=== PATIENT | male | born 1995 | race Two or more races ===

== ENCOUNTER 2022-06-22 09:31 | Inpatient (IN) | payer OTHER, SELFPAY ==
--- NOTE | ~2022-06-22 | CT_ITS ---
EXAMINATION: CT ABDOMEN AND PELVIS WITH CONTRAST CLINICAL INFORMATION: Abdominal pain. COMPARISON: None TECHNIQUE: Multidetector volumetric images were obtained from the superior aspect of the liver through the pubic symphysis following administration 85 mL of Omnipaque 350 intravenous contrast. Sagittal and coronal reformatted images were obtained on the technologist's workstation. Oral contrast: No This CT examination was performed using dose optimization techniques as appropriate, variously including the following: *Automated exposure control *Adjustment of mA and/or kV according to patient size (this includes techniques or standardized protocols for targeted exams where dose is matched to indication/reason for exam; i.e. extremities or head) *Use of iterative reconstruction technique DLP: 935 mGy-cm FINDINGS: LUNG BASES: The visualized lung bases are unremarkable. LIVER, GALLBLADDER, AND BILIARY TREE: Unremarkable. PANCREAS: Unremarkable. SPLEEN: Unremarkable. ADRENAL GLANDS: Unremarkable. KIDNEYS AND URETERS: The kidneys are normal in size, shape, and attenuation. No hydronephrosis, hydroureter, or calculi seen. No perinephric stranding. BLADDER: Unremarkable. GASTROINTESTINAL TRACT: Stomach, small bowel and appendix are unremarkable. The colon shows mild diffuse mural thickening with incomplete distention extending to the rectum. Haustration is preserved. Mildly enlarged pericolonic lymph nodes are throughout the length of the colon. Mild prominence of the vasa recta is seen as well. No focal mass or significant pericolonic infiltrative changes. No focal fluid collection or evidence for perforation. ABDOMINAL WALL: No significant hernia is appreciated. LYMPH NODES: See gastrointestinal tract comments above. VASCULAR: Unremarkable. PELVIC VISCERA: Unremarkable. OSSEOUS STRUCTURES: Unremarkable. CT/CT abdomen pelvis w IV con IMPRESSION: 1. Mild diffuse mural thickening in the in the colon distally to the rectum as detailed above. A component of mural thickening may be secondary to incomplete distention however given the pericolonic lymph nodes and prominence of the vasa recta suggestive of colitis of indeterminate age. Findings suggest more chronic/subacute infectious/inflammatory colitis, but clinical correlation is recommended.
[2022-06-22 11:10] VITALS: BP 132/80; PULSE 90; RESP 20; TEMP 36.6; O2SAT 100; BMI 41.3
--- NOTE | 2022-06-22 11:14 | ED_ITS ---
HPI - General Adult General Chief complaint: Weakness <Zarina Houser MD - Last Filed: 06/22/22 11:21> Stated complaint: Pain Stiffness in Joints <Zarina Houser MD - Last Filed: 06/22/22 11:21> Time Seen by Provider: 06/22/22 12:46 <Zarina Houser MD - Last Filed: 06/22/22 11:21> Source: patient and family (Father) <Param Wilburn MD - Last Filed: 06/22/22 17:26> Mode of arrival: ambulatory <Param Wilburn MD - Last Filed: 06/22/22 17:26> Limitations: no limitations <Param Wilburn MD - Last Filed: 06/22/22 17:26> History of Present Illness HPI narrative: 19-year-old male who presents emergency department for evaluation of abdominal pain, bloody stools and weight loss. The patient states that he has been sick for approximately 3 months. He states he has had a constant, sharp pain in his abdomen, he points to his supraumbilical area and diffusely t hroughout his abdomen when asked to localize the pain. He describes the pain as a constant, sharp pain which is 8/10 at its worst. Patient states that he has had bloody diarrheal stool for 3 months, 8 episodes per day. The patient has had nausea and vomiting daily. He states that he is not able to eat food secondary to his pain and also causes diarrhea. He believes that he has had a 20 lb weight loss over the last 3 months. Patient states that he has been having joint pain mainly in his knees and and elbow for the last 1-2 weeks. He states that he has also noticed a rash on his hands. He states that he is feeling very weak, lightheaded and dizziness having difficulty walking secondary to his weakness. Patient states that he did go to [facility] approximately 2 weeks ago he complai clair of back and did not get a workup for his other symptoms. The patient has not been on antibiotics recently. He has not traveled outside of the country. <Param Wilburn MD - Last Filed: 06/22/22 17:26> Related Data Allergies/adverse reactions: Allergies Allergy/AdvReac Type Severity Reaction Status Date / Time No Known Allergies Allergy Unverified 04/02/20 17:05 <Zarina Houser MD - Last Filed: 06/22/22 11:21> Review of Systems Review of Systems: Yes all other systems are reviewed and are negative <Param Wilburn MD - Last Filed: 06/22/22 17:26> [facility]LY [facility] Past Medical History FOR[facility] Narrative: Past medical history: None. Past surgical history: None. Social history: He states that he is a former smoker. He states he stop smoking 6 months prior. He states he smoked for 5 years. He denies alcohol use. Denies drug use. <Param Wilburn MD - Last Filed: 06/22/22 17:26> Social History Social History: Social History Alcohol intake: never Smoked in Last 30 Days: No Advance Directives: No <Zarina Houser MD - Last Filed: 06/22/22 11:21> Physical Exam ED Vital Signs: Vital Signs - 24 hr 06/22/22 11:10 06/22/22 14:45 06/22/22 15:58 Temperature 98 F 98.1 F Pulse Rate 90 77 80 Respiratory Rate 20 12 18 Blood Pressure 132/80 99/54 L 132/77 Pulse Oximetry 100 98 98 Oxygen Delivery Method Room Air Room Air Room Air BMI result Body Mass Index 41.3 <Zarina Houser MD - Last Filed: 06/22/22 11:21> Vital Signs - 24 hr 06/22/22 11:10 06/22/22 14:45 06/22/22 15:58 Temperature 98 F 98.1 F Pulse Rate 90 77 80 Respiratory Rate 20 12 18 Blood Pressure 132/80 99/54 L 132/77 Pulse Oximetry 100 98 98 Oxygen Delivery Method Room Air Room Air Room Air BMI result Body Mass Index 41.3 <Param Wilburn MD - Last Filed: 06/22/22 17:26> Const General: cooperative and no acute distress <Param Wilburn MD - Last Filed: 06/22/22 17:26> Orientation/consciousness: oriented to person and oriented to place <Param Wilburn MD - Last Filed: 06/22/22 17:26> Limitations: no limitations <Param Wilburn MD - Last Filed: 06/22/22 17:26> HENMT Head: Yes normal to inspection, Yes normocephalic and Yes atraumatic <Param Wilburn MD - Last Filed: 06/22/22 17:26> Ears: external ears normal <MD Sheridan Rodarte Last Filed: 06/22/22 17:26> General nose exam: Normal external nose present <MD Sheridan Rodarte Last Filed: 06/22/22 17:26> Face and sinus: Yes normal facial exam <MD Sheridan Rodarte Last Filed: 06/22/22 17:26> Mouth: Normal oral and palatal mucosa present <MD Sheridan Rodarte Last Filed: 06/22/22 17:26> Throat: Yes posterior oropharynx normal <MD Sheridan Rodarte Last Filed: 06/22/22 17:26> Eyes General: appearance normal, both eyes and all related structures <MD Sheridan Rodarte Last Filed: 06/22/22 17:26> Pupils: Equal, round and reactive pupils present <MD Sheridan Rodarte Last Filed: 06/22/22 17:26> Neck Neck: Yes normal visual inspection, Yes no lymphadenopathy, Yes trachea midline and Yes supple <MD Sheridan Rodarte Last Filed: 06/22/22 17:26> Chest Chest palpation & inspection: normal inspection of the chest and normal palpation of entire chest wall <MD Sheridan Rodarte Last Filed: 06/22/22 17:26> Resp Effort & Inspection: normal respiratory effort and able to speak in complete sentences <MD Sheridan Rodarte Last Filed: 06/22/22 17:26> Auscultation: clear to auscultation bilaterally <MD Sheridan Rodarte Last Filed: 06/22/22 17:26> Cardio Rate: regular rate <MD Sheridan Rodarte Last Filed: 06/22/22 17:26> Rhythm: regular rhythm <MD Sheridan Rodarte Last Filed: 06/22/22 17:26> Heart sounds: S1 normal heart sound present, S2 normal heart sound present and no murmurs <Param Wilburn MD - Last Filed: 06/22/22 17:26> GI Other: Rectal exam: I was not able to insert my finger into his rectum secondary to the patient's rectal pain and he clenched his muscles and pulled away from the multiple times. <Param Wilburn MD - Last Filed: 06/22/22 17:26> Inspection: Yes normal to inspection <Param Wilburn MD - Last Filed: 06/22/22 17:26> Palpation (GI): Soft to palpation, Tenderness to palpation present (GI) (Diffuse [id number] tenderness) and no guarding <Param Wilburn MD - Last Filed: 06/22/22 17:26> Auscultation: normal bowel sounds <Param Wilburn MD - Last Filed: 06/22/22 17:26> Rectal Exam - Male: Yes other <Param Wilburn MD - Last Filed: 06/22/22 17:26> General: Yes no CVA tenderness <Param Wilburn MD - Last Filed: 06/22/22 17:26> Back/Spine/Pelvis Back: no CVA tenderness <Param Wilburn MD - Last Filed: 06/22/22 17:26> Skin Other: Patient has erythematous rash in patches on his hands, I do not see a rash on the other parts of his body. <Param Wilburn MD - Last Filed: 06/22/22 17:26> Neuro General: oriented to person and oriented to place <Param Wilburn MD - Last Filed: 06/22/22 17:26> Cranial nerves: Yes CN's II-XII intact bilaterally and Yes Equal, round and reactive pupils present <Param Wilburn MD - Last Filed: 06/22/22 17:26> Cognition (Neuro): normal cognition <Param Wilburn MD - Last Filed: 06/22/22 17:26> Motor exam (neuro): 5/5 motor strength present throughout <Param Wilburn MD - Last Filed: 06/22/22 17:26> Extrem Other: Patient does not seem to have any significant swelling or warmth to his joints <Param Wilburn MD - Last Filed: 06/22/22 17:26> Psych Appearance: grossly normal <Param Wilburn MD - Last Filed: 06/22/22 17:26> Speech and movement: Normal speech and movement present <Param Wilburn MD - Last Filed: 06/22/22 17:26> Affect: normal affect <Param Wilburn MD - Last Filed: 06/22/22 17:26> Attitude: cooperative <Param Wilburn MD - Last Filed: 06/22/22 17:26> Thought process: Normal thought process present <Param Wilburn MD - Last Filed: 06/22/22 17:26> Thought content: Normal thought content present <Param Wilburn MD - Last Filed: 06/22/22 17:26> Course Course Course Narrative: Evaluated patient is on advanced Triage patient complaining of having abdominal pain nausea vomiting diarrhea diarrhea consistent with having blood mixed with stool. At times some foam mixed with stool. Diffuse body ache. Worse in the knees. No significant past medical history in the past. On no medications. Abdominal pain mostly over the epigastric area. No travel. No NSAID use. No ETOH use. Patient vaccinated for COVID. Denies having any fever chills. This is a lab draw IV CT scan ordered. The patient put back in the waiting room. <Zarina Houser MD - Last Filed: 06/22/22 11:21> Evaluated patient is on advanced Triage patient complaining of having abdominal pain nausea vomiting diarrhea diarrhea consistent with having blood mixed with stool. At times some foam mixed with stool. Diffuse body ache. Worse in the knees. No significant past medical history in the past. On no medications. Abdominal pain mostly over the epigastric area. No travel. No NSAID use. No ETOH use. Patient vaccinated for COVID. Denies having any fever chills. This is a lab draw IV CT scan ordered. The patient put back in the waiting room. Course: 27-year-old male who presents emergency department for evaluation of diffuse abdominal pain bloody diarrheal stool, nausea and vomiting with a 15-20 lb weight loss over 3 months. Patient also has noticed pain in the joints of his knees and elbows for the last 2 weeks and a rash on his hand x1 week. The patient was feeling lightheaded, dizzy and weak and was having difficulty walking for the past week as well. Vital signs were normal. Abdominal exam revealed diffuse abdominal tenderness. Differential includes was not limited to ulcerative colitis, Crohn's disease, infectious colitis, malignancy. Her laboratory evaluation and CT scan were ordered from triage. 1648: Laboratory evaluation WBC elevated 17,600, 74 neutrophils, 9 lymphocytes, 4.9 eosinophils. Sodium low 133. Urinalysis negative. COVID-19, influenza, RSV negative. ESR elevated 25. Radiology evaluation: CT scan of the abdomen pelvis with IV contrast radiology reading as follows: GASTROINTESTINAL TRACT: Stomach, small bowel and appendix are unremarkable. The colon shows mild diffuse mural thickening with distention extending to the rectum.? Haustration is preserved. Mildly enlarged pericolonic lymph nodes are throughout the length of the colon. Mild prominence of the vasa recta is seen as well. No focal mass or significant pericolonic infiltrative changes. No focal fluid collection or evidence for perforation. Impression 1. Mild diffuse mural thickening in the in the colon distally to the rectum as detailed above. A component of mural thickening may be secondary to incomplete distention however given the pericolonic lymph nodes and prominence of the vasa recta suggestive of colitis of indeterminate age. Findings suggest more chronic/subacute infectious/inflammatory colitis, but clinical correlation is recommended. Dictated By:Mir Paulino MDSigned By:<Electronically signed by Mir Paulino MD in [place]>06/22/[address] scan findings and laboratory findings, I will treat the patient for possible infectious colitis with Levaquin 750 mg IV Flagyl 500 mg IV. I did order C diff and GI panel. Will also obtain open parasites. I will discuss the patient's presentation with the covering hospitalist. <Param Wilburn MD - Last Filed: 06/22/22 17:26> Medications Administered Discontinued Medications Generic Name Dose Route Start Last Admin Trade Name Freq PRN Reason Stop Dose Admin Sodium Chloride 1,000 mls @ 999 mls/hr 06/22/22 11:30 06/22/22 15:34 Ns IV 06/22/22 12:30 Infused .Q1H1M INES Infusion Iohexol 100 ml 06/22/22 13:23 06/22/22 13:24 Iohexol 350 Mg/Ml 100 Ml Infus..Btl IV 06/22/22 13:24 85 ml ONCE ONE Administration <Zarina Houser MD - Last Filed: 06/22/22 11:21> Medications Administered Discontinued Medications Generic Name Dose Route Start Last Admin Trade Name Spenser PRN Reason Stop Dose Admin Sodium Chloride 1,000 mls @ 999 mls/hr 06/22/22 11:30 06/22/22 15:34 Ns IV 06/22/22 12:30 Infused .Q1H1M INES Infusion Iohexol 100 ml 06/22/22 13:23 06/22/22 13:24 Iohexol 350 Mg/Ml 100 Ml Infus..Btl IV 06/22/22 13:24 85 ml ONCE ONE Administration <Param Wilburn MD - Last Filed: 06/22/22 17:26> Critical Care Time Critical Care Time Total Critical Care Time: 30 <Param Wilburn MD - Last Filed: 06/22/22 17:26> Attestation: Critical Care: The patient was critically ill with a high probability of imminent or life threatening deterioration. I spent greater than 30 minutes of discontinuous time evaluating the patient,delivering critical care at the bedside, discussing and evaluating pertinent data with consultants. Critical care time does not include time spent performing separately billable procedures or teaching. Total time spent performing critical care was 30 minutes. <Param Wilburn MD - Last Filed: 06/22/22 17:26> Discharge Plan Discharge Patient Disposition: Admitted As Inpatient <Zarina Houser MD - Last Filed: 06/22/22 11:21>
[2022-06-22 11:56] LABS: Basophils Absolute Auto 0.1 X10*3/uL (0.0-0.2); Basophils Percent Auto 0.3 % (0-2); Eosinophils Absolute Auto 0.9 X10*3/uL (0.0-0.4); Eosinophils Percent Auto 4.9 % (0-4); Hematocrit 37.8 % (42.0-52.0); Hemoglobin 11.7 g/dl (14.0-18.0); Imm Gran Abs Auto 0.06 X10*3/uL (0.00-0.03); Imm Gran Pct Auto 0.3 % (0.0-0.4); Lymphocytes Absolute Auto 1.6 X10*3/uL (1.2-4.9); Lymphocytes Percent Auto 9.3 % (20-40); MANUAL DIFF FLAG SCAN; Mean Corpuscular Hemoglobin 21.1 pg (27.0-33.0); Mean Corpuscular Volume 68.2 fL (80.0-98.0); Mean Platelet Volume 9.7 fL (9.4-12.4); Monocytes Absolute Auto 1.9 X10*3/uL (0.1-1.2); Monocytes Percent Auto 10.7 % (2-11); Neutrophils Absolute Auto 13.1 x10*3/uL (2.0-8.3); Neutrophils Percent Auto 74.5 % (45-73); Platelet Count 514 X10*3/uL (160-400); Red Blood Count 5.54 X10*6/uL (4.60-5.80); Red Cell Distribution Width 16.1 % (11.0-16.0); SCAN SMEAR FLAG 1; White Blood Count 17.6 X10*3/uL (4.8-10.8)
[2022-06-22 12:14] LABS: Alanine Aminotransferase 15 U/L (0-40); Albumin Level 4.3 g/dL (3.5-5.0); Alkaline Phosphatase 91 U/L (39-117); Anion Gap 15 (12-20); Aspartate Amino Transferase 13 U/L (5-37); Bilirubin Direct < 0.2 mg/dL (0.0-0.5); Bilirubin Total 0.3 mg/dL (0.0-1.0); Blood Urea Nitrogen 5 mg/dL (9-16); Calcium 9.5 mg/dL (8.4-10.2); Carbon Dioxide 26 mmol/L (22-29); Chloride 96 mmol/L (96-108); Creatinine Clr Calc Pharmacy 176.8; Estimated Glomerular Filt Rate > 60; Glucose Random 110 mg/dL (60-115); Lipase 10 U/L (8-78); Potassium 3.9 mmol/L (3.3-5.1); Sodium 133 mmol/L (135-145); Total Protein 8.1 g/dL (6.5-8.0)
[2022-06-22 12:26] LABS: SLIDE REVIEW VERIFIED
[2022-06-22 12:34] LABS: Erythrocyte Sedimentation Rate 25 MM/HR (0-15)
[2022-06-22 12:52] LABS: Influenza A PCR NEGATIVE (Negative); Influenza B PCR NEGATIVE (Negative); Resp Syncy Virus RNA Qual PCR NEGATIVE (Negative); SARS COV2 PCR INHOUSE NEGATIVE (Negative)
[2022-06-22] MEDS: 0.9 % Sodium Chloride 1,000 ML 999 ML IV (13:13)
--- NOTE | 2022-06-22 13:22 | PC.NURSE ---
patient a/ox4 . lawrencerla . heart rate regular at 77 beats per minute . breathing even and unlabored . lungs clear throughout . skin pink warm and dry . abdomen soft . hypoactive bowel sounds noted throughout .patient reports increased nausea / and abdominal discomfort / diarrhea an being unable to consume food over last few days . Joint pain in elbows and knees that has increased in severity since Monday . current pain level 5 out of 10 . IV fluid started as ordered . patient aware of plan of care .
[2022-06-22] MEDS: iohexoL 350 MG/ML 100 ML INFUS..BTL IV (13:24)
[2022-06-22 14:45] VITALS: BP 99/54; PULSE 77; RESP 12; O2SAT 98
[2022-06-22 15:58] VITALS: BP 132/77; PULSE 80; RESP 18; TEMP 36.7; O2SAT 98
[2022-06-22 16:09] LABS: Appearance Urine Clear; Color Urine Yellow; Glucose Urine UA Negative (Negative); Leukocyte Esterase Urine Negative (Negative); Nitrite Urine Negative (Negative); PH 5.5 (5.0-9.0); Specific Gravity - Urine >= 1.030 (1.005-1.025); Urine Blood Negative (Negative); Urine Ketones 80 mg/dL (Negative); Urine Protein Negative (Neg-Trace)
[2022-06-22 16:14] LABS: Bacteria Urine None Seen (None Seen); Hyaline Casts Urine 0-2 /LPF (0-2); RBC Urine 0-2 /HPF (0-2); Squamous Epithelial Cell Urine 0-2 /HPF (0-2); WBC Urine 0-5 /HPF (0-5)
[2022-06-22] MEDS: metroNIDAZOLE/NS 500 MG/100 ML PIGGYBACK 100 MG IV (17:34)
[2022-06-22 17:38] VITALS: BP 116/53; PULSE 84; RESP 18; TEMP 36.7; O2SAT 99
[2022-06-22] MEDS: levoFLOXacin/D5W 750 MG/150 ML PIGGYBACK 100 MG IV (18:45)
--- NOTE | 2022-06-22 18:45 | PM.IMHP ---
History of Present Illness Date of Service: 06/22/22 Chief Complaint: diarrhea, blood in stool, weight loss 27M no significant pmh presented with diarrhea. Patient reports he has been feeling ill for 2-3 months. He has lost about 20 lb in that time unintentionally. Decreased appetite. Loose stools with blood. Intermittent rash on palms of hands. Recently started having joint pains. Also complaining of periumbilical abdominal pain 5 out 10 radiating diffusely associated with nausea without vomiting. Patient reports feeling warm but has not measured any fevers. Denies any travel, sick contacts. In ED lab significant for leukocytosis, thrombocytosis, microcytic anemia, CT with colitis. Review of Systems Review of Systems: Constitutional: Weight loss Eyes: denies blurry vision ENT: denies sore throat CVS: denies chest pain Respiratory: Denies dyspnea GI: See HPI : denies dysuria MSK: See HPI Skin: See HPI Neuro: denies specific motor weakness Psych: denies suicidal ideation Endocrine: denies heat/cold intolerance Hematologic: denies easy bleeding Allergy: denies hives [facility] Social History Alcohol intake: never Smoked in Last 30 Days: No Advance Directives: No Meds Allergies Allergy/AdvReac Type Severity Reaction Status Date / Time No Known Allergies Allergy Unverified 04/02/20 17:05 Physical Exam Vital Signs and Narrative: Vital Signs: Last Vital Signs Temp 98.1 F 06/22/22 17:38 Pulse 84 06/22/22 17:38 Resp 18 06/22/22 17:38 BP 116/53 L 06/22/22 17:38 Pulse Ox 99 06/22/22 17:38 O2 Del Method 06/22/22 17:38 BMI result Body Mass Index 41.3 General: no acute distress HEENT: atraumatic Neck: normal to visual inspection CVS: S1, S2, RRR Resp: CTA bilateral Chest: non tender GI: soft, mildly tender, non distended : no CVA tenderness Skin: erythema multiforme on palms Extremities: no edema Neuro: Oriented X3, grossly intact Psych: cooperative Results Labs CBC and Chem 7: 06/22/22 11:43 06/22/22 11:43 Labs: Laboratory Results - last 24 hr 12/02/0406/22/22 06/22/22 11:43 11:43 11:43 MCV 68.2 L MCH 21.1 L MCHC 31.0 RDW 16.1 H Plt Count 514 H MPV 9.7 Immature Gran % (Auto) 0.3 Neut % (Auto) 74.5 H Lymph % (Auto) 9.3 L [place] % (Auto) 10.7 Eos % (Auto) 4.9 H Baso % (Auto) 0.3 Lymph # (Auto) 1.6 [place] # (Auto) 1.9 H Eos # (Auto) 0.9 H Baso # (Auto) 0.1 Abs Immat Gran (auto) 0.06 H Absolute Neuts (auto) 13.1 H Absolute Nucleated RBC 0.000 Nucleated RBC % (auto) 0.0 Smear Tech's Comments VERIFIED ESR 25 H Anion Gap 15 Estim Creat Clear Calc 176.8 Estimated GFR > 60 Random Glucose 110 Calcium 9.5 Total Bilirubin 0.3 Direct Bilirubin < 0.2 AST 13 ALT 15 Alkaline Phosphatase 91 Total Protein 8.1 H Albumin 4.3 Lipase 10 Urine Color Urine Appearance Urine pH Ur Specific [place] Urine Protein Urine Glucose (UA) Urine Ketones Urine Blood Urine Nitrite Ur Leukocyte Esterase Urine RBC Urine WBC Ur Squamous Epith Cells Urine Bacteria Hyaline Casts Influenza Type A (PCR) Influenza Type B (PCR) RSV RNA Qual (PCR) SARS-CoV-2 RNA (RT-PCR) 06/22/22 06/22/22 11:43 16:00 MCV MCH MCHC RDW Plt Count MPV Immature Gran % (Auto) Neut % (Auto) Lymph % (Auto) [place] % (Auto) Eos % (Auto) Baso % (Auto) Lymph # (Auto) [place] # (Auto) Eos # (Auto) Baso # (Auto) Abs Immat Gran (auto) Absolute Neuts (auto) Absolute Nucleated RBC Nucleated RBC % (auto) Smear Tech's Comments ESR Anion Gap Estim Creat Clear Calc Estimated GFR Random Glucose Calcium Total Bilirubin Direct Bilirubin AST ALT Alkaline Phosphatase Total Protein Albumin Lipase Urine Color Yellow Urine Appearance Clear Urine pH 5.5 Ur Specific [place] >= 1.030 H Urine Protein Negative Urine Glucose (UA) Negative Urine Ketones 80 Urine Blood Negative Urine Nitrite Negative Ur Leukocyte Esterase Negative Urine RBC 0-2 Urine WBC 0-5 Ur Squamous Epith Cells 0-2 Urine Bacteria None Seen Hyaline Casts 0-2 Influenza Type A (PCR) NEGATIVE Influenza Type B (PCR) NEGATIVE RSV RNA Qual (PCR) NEGATIVE SARS-CoV-2 RNA (RT-PCR) NEGATIVE Imaging Radiologist's Impressions: Impressions Abdomen/Pelvis CT 06/22/22 13:21 IMPRESSION: 1. Mild diffuse mural thickening in the in the colon distally to the rectum as detailed above. A component of mural thickening may be secondary to incomplete distention however given the pericolonic lymph nodes and prominence of the vasa recta suggestive of colitis of indeterminate age. Findings suggest more chronic/subacute infectious/inflammatory colitis, but clinical correlation is recommended. Assessment and Plan (1) Acute colitis: Status: Acute Plan 27M presented with arthralgias, bloody diarrhea, unintentional weight loss, erythema multiforme, found to have colitis Colitis with arthralgias, bloody diarrhea, unintentional weight loss, erythema multiforme, macrocytic anemia, leukocytosis and thrombocytosis Differential includes inflammatory causes such as IBD Versus chronic infectious diarrhea Check stool studies GI eval Monitor CBC Low risk for DVT, early ambulation Full code Patient with colitis with significant systemic involvement, requiring extensive workup, therefore expected to prior least 2 midnights inpatient Quality Stroke Does the patient have a stroke diagnosis?: No VTE Prior VTE?: No VTE Risk Level:: Medical - low VTE Device Contraindication: Treatment Not Indicated VTE Drug Contraindication: Treatment Not Indicated
[2022-06-22 19:00] LABS: Ferritin 13 ng/mL (20-250); Iron 9 mcg/dL (45-160); Percent Iron Saturation 2 % (15-50); Total Iron Binding Capacity 407 mcg/dL (228-428); Unsaturated Iron Binding 398 ug/dL
--- NOTE | 2022-06-22 21:36 | MHC.CM.PN ---
CM met with admitted patient and his mother, Anna Darling, with bed assignment pending. Pt lives with parents. Employed. No DME/services. [employer] vaccine. No PCP. Will need first PCP appointment prior to discharge. Pt would like to come to this hospital. Agreeable to [facility]. Reviewed HCP, pt declines at this time. D/C plan: Home without services. Family will provide transportation. CM to follow for d/c needs.
--- NOTE | 2022-06-22 21:56 | PC.NURSE ---
this rn called lab to confirm that the three needed stool samples can be sent down in the same collection cup. Lab states this is okay to send in one collection cup.
[2022-06-22 22:41] LABS: OBS Int Ctl Valid YES; OBS1 POSITIVE (NEGATIVE)
[2022-06-22 23:19] LABS: CDiff Gene PCR NEGATIVE (Negative)
[2022-06-22 23:58] VITALS: BMI 38.1
[2022-06-22 23:59] VITALS: BP 134/74; PULSE 92; RESP 18; TEMP 36.3; O2SAT 98
[2022-06-23] MEDS: 0.9 % Sodium Chloride Flush 3 ML SYRINGE IVFLUSH ×4 (00:08→21:44)
[2022-06-23 04:00] VITALS: BP 128/60; PULSE 78; RESP 18; TEMP 36.4; O2SAT 99
[2022-06-23 05:56] LABS: Hemoglobin 11.3 g/dl (14.0-18.0); Mean Corpuscular HGB Conc 30.5 g/dl (31.0-36.0); Mean Corpuscular Hemoglobin 21.2 pg (27.0-33.0); Mean Corpuscular Volume 69.5 fL (80.0-98.0); Mean Platelet Volume 10.2 fL (9.4-12.4); Platelet Count 579 X10*3/uL (160-400); Red Blood Count 5.32 X10*6/uL (4.60-5.80); White Blood Count 17.1 X10*3/uL (4.8-10.8)
[2022-06-23 06:08] LABS: Anion Gap 17 (12-20); Blood Urea Nitrogen 3 mg/dL (9-16); Calcium 9.5 mg/dL (8.4-10.2); Carbon Dioxide 25 mmol/L (22-29); Chloride 100 mmol/L (96-108); Creatinine Clr Calc Pharmacy 175.8; Estimated Glomerular Filt Rate > 60; Glucose Fasting 88 mg/dL (60-99); Potassium 4.7 mmol/L (3.3-5.1); Sodium 137 mmol/L (135-145)
[2022-06-23 07:31] VITALS: BP 129/68; PULSE 81; RESP 17; TEMP 36.4; O2SAT 97
--- NOTE | 2022-06-23 08:48 | PM.EVENT ---
Event Note Date of Service: 06/23/22 Event Note: GI--Consult noted-will see patient later today. Seems c/w IBD. Will change to clear liqs and await stool specimens. Probable Flex sig or Colonoscopy by tomorrow. Thanks
--- NOTE | 2022-06-23 09:25 | P.PNIM_ITS ---
Subjective Subjective Date of Service: 06/23/22 Interval History: cc: abd pain interval history: somewhat better today Cardiovascular Cardiovascular: Reports no additional cardiovascular complaints Respiratory Respiratory: Reports no additional respiratory complaints Physical Exam Vital Signs: Vital Signs: Last Vital Signs Temp 97.5 F 06/23/22 07:31 Pulse 81 06/23/22 07:31 Resp 17 06/23/22 07:31 BP 129/68 06/23/22 07:31 Pulse Ox 97 06/23/22 07:31 O2 Del Method 06/23/22 07:31 BMI result Body Mass Index 38.1 General: AO X 3, no acute distress Resp: CTA bilateral, no accessory muscles used CVS: S1,S2,RRR GI: soft, non tender, non distended Neuro: motor grossly intact, alert Psych: appropriate affect, appropriate insight skin: EM rash on palms Objective Data Active Medications Acetaminophen (Acetaminophen 325 Mg Tablet) 650 mg PO Q6H PRN PRN Reason: Pain, Mild (Pain Scale 1-3) Iron Sucrose 200 mg/ Sodium (Chloride) 110 mls @ 440 mls/hr IV DAILY@1000 [facility] Stop: 06/25/22 10:14 Sodium Chloride (0.9 % Sodium Chloride Flush 3 Ml Syringe) 3 ml IVFLUSH QSHIFT [facility] Last Admin: 06/23/22 07:17 Dose: 3 ml Documented By: JAYA Labs CBC & Chem 7: 06/23/22 05:02 06/23/22 05:02 Labs: Laboratory Results - last 24 hr 06/22/22 06/22/22 06/22/22 11:43 11:43 11:43 MCV 68.2 L MCH 21.1 L MCHC 31.0 RDW 16.1 H Plt Count 514 H MPV 9.7 Immature Gran % (Auto) 0.3 Neut % (Auto) 74.5 H Lymph % (Auto) 9.3 L [place] % (Auto) 10.7 Eos % (Auto) 4.9 H Baso % (Auto) 0.3 Lymph # (Auto) 1.6 [place] # (Auto) 1.9 H Eos # (Auto) 0.9 H Baso # (Auto) 0.1 Abs Immat Gran (auto) 0.06 H Absolute Neuts (auto) 13.1 H Absolute Nucleated RBC 0.000 Nucleated RBC % (auto) 0.0 Smear Tech's Comments VERIFIED ESR 25 H Anion Gap 15 Estim Creat Clear Calc 176.8 Estimated GFR > 60 Random Glucose 110 Fasting Glucose Calcium 9.5 Iron 9 L TIBC 407 % Saturation 2 L Unsat Iron Binding 398 Ferritin 13 L Total Bilirubin 0.3 Direct Bilirubin < 0.2 AST 13 ALT 15 Alkaline Phosphatase 91 Total Protein 8.1 H Albumin 4.3 Lipase 10 Urine Color Urine Appearance Urine pH Ur Specific [place] Urine Protein Urine Glucose (UA) Urine Ketones Urine Blood Urine Nitrite Ur Leukocyte Esterase Urine RBC Urine WBC Ur Squamous Epith Cells Urine Bacteria Hyaline Casts Stool Occult Blood C. difficile Tox B Gene Influenza Type A (PCR) Influenza Type B (PCR) RSV RNA Qual (PCR) SARS-CoV-2 RNA (RT-PCR) 06/22/22 06/22/22 06/22/22 11:43 16:00 22:22 MCV MCH MCHC RDW Plt Count MPV Immature Gran % (Auto) Neut % (Auto) Lymph % (Auto) [place] % (Auto) Eos % (Auto) Baso % (Auto) Lymph # (Auto) [place] # (Auto) Eos # (Auto) Baso # (Auto) Abs Immat Gran (auto) Absolute Neuts (auto) Absolute Nucleated RBC Nucleated RBC % (auto) Smear Tech's Comments ESR Anion Gap Estim Creat Clear Calc Estimated GFR Random Glucose Fasting Glucose Calcium Iron TIBC % Saturation Unsat Iron Binding Ferritin Total Bilirubin Direct Bilirubin AST ALT Alkaline Phosphatase Total Protein Albumin Lipase Urine Color Yellow Urine Appearance Clear Urine pH 5.5 Ur Specific [place] >= 1.030 H Urine Protein Negative Urine Glucose (UA) Negative Urine Ketones 80 Urine Blood Negative Urine Nitrite Negative Ur Leukocyte Esterase Negative Urine RBC 0-2 Urine WBC 0-5 Ur Squamous Epith Cells 0-2 Urine Bacteria None Seen Hyaline Casts 0-2 Stool Occult Blood POSITIVE C. difficile Tox B Gene Influenza Type A (PCR) NEGATIVE Influenza Type B (PCR) NEGATIVE RSV RNA Qual (PCR) NEGATIVE SARS-CoV-2 RNA (RT-PCR) NEGATIVE 06/22/22 06/23/22 06/23/22 22:22 05:02 05:02 MCV 69.5 L MCH 21.2 L MCHC 30.5 L RDW 16.0 Plt Count 579 H MPV 10.2 Immature Gran % (Auto) Neut % (Auto) Lymph % (Auto) [place] % (Auto) Eos % (Auto) Baso % (Auto) Lymph # (Auto) [place] # (Auto) Eos # (Auto) Baso # (Auto) Abs Immat Gran (auto) Absolute Neuts (auto) Absolute Nucleated RBC 0.000 Nucleated RBC % (auto) 0.0 Smear Tech's Comments ESR Anion Gap 17 Estim Creat Clear Calc 175.8 Estimated GFR > 60 Random Glucose Fasting Glucose 88 Calcium 9.5 Iron TIBC % Saturation Unsat Iron Binding Ferritin Total Bilirubin Direct Bilirubin AST ALT Alkaline Phosphatase Total Protein Albumin Lipase Urine Color Urine Appearance Urine pH Ur Specific [place] Urine Protein Urine Glucose (UA) Urine Ketones Urine Blood Urine Nitrite Ur Leukocyte Esterase Urine RBC Urine WBC Ur Squamous Epith Cells Urine Bacteria Hyaline Casts Stool Occult Blood C. difficile Tox B Gene NEGATIVE Influenza Type A (PCR) Influenza Type B (PCR) RSV RNA Qual (PCR) SARS-CoV-2 RNA (RT-PCR) Assessment and Plan (1) Acute colitis: Status: Acute Plan 27M presented with arthralgias, bloody diarrhea, unintentional weight loss, erythema multiforme, found to have colitis Colitis with arthralgias, bloody diarrhea, unintentional weight loss, erythema multiforme, iron deficiency anemia GI appreciated, most c/w IBD, plan for flex sig follow up stool studies will give iv iron Low risk for DVT, early ambulation Full code reason for continued hospitalization:plan for inpatient flex sig Quality Stroke Does the patient have a stroke diagnosis?: No VTE Prior VTE?: No VTE Risk Level:: Medical - low VTE Device Contraindication: Treatment Not Indicated VTE Drug Contraindication: Treatment Not Indicated
[2022-06-23] MEDS: Iron Sucrose Complex 200 MG in 0.9 % Sodium Chloride 100 ML 440 MG IV (09:50)
--- NOTE | 2022-06-23 13:02 | MHC.CLN ---
RE: CONSULT PT REPORTED 20# WT LOSS X 2-3 MONTHS CURRENT WT 117.2KG PT WITH 7% NONSIGNIFICANT WT LOSS X 2-3 MONTHS RECOMMEND ADDING ENSURE CLEAR TID TO INCREASE KCALS MONITOR PO INTAKE CLOSELY
[2022-06-23 13:35] LABS: Campylobacter Not Detected (Not Detect.)
[2022-06-23 13:36] LABS: Adenovirus F 40/41 Not Detected (Not Detect.); Astrovirus Not Detected (Not Detect.); Cryptosporidium Not Detected (Not Detect.); Cyclospora cayetanensis Not Detected (Not Detect.); E. coli EAEC Not Detected (Not Detect.); E. coli EPEC Not Detected (Not Detect.); E. coli ETEC Not Detected (Not Detect.); E. coli STEC Not Detected (Not Detect.); Entamoeba histolytica Not Detected (Not Detect.); Giardia lamblia Not Detected (Not Detect.); Norovirus GI/GII Not Detected (Not Detect.); Plesiomonas shigelloides Not Detected (Not Detect.); Rotavirus A Not Detected (Not Detect.); Salmonella Not Detected (Not Detect.); Sapovirus Not Detected (Not Detect.); Shigella sp./EIEC Not Detected (Not Detect.); Vibrio Not Detected (Not Detect.); Vibrio Cholerae Not Detected (Not Detect.); Yersinia enterocolitica Not Detected (Not Detect.)
[2022-06-23 13:45] LABS: CDiff Gene PCR NEGATIVE (Negative)
--- NOTE | 2022-06-23 15:16 | MHC.SHP ---
Pre-Procedural Eval Section A Date of Service: 06/24/22 The patient is an INPATIENT: Yes The History & Physical has been completed within 30 days and I have reviewed it.: Yes Section B Chief Complaint: colitis Allergies: Allergies Allergy/AdvReac Type Severity Reaction Status Date / Time No Known Allergies Allergy Unverified 04/02/20 17:05 Plan I have reviewed the history and physical and performed a pertinent physical examination on my patient. No changes have occurred unless specified.
--- NOTE | 2022-06-23 15:16 | PM.EVENT ---
Event Note Date of Service: 06/23/22 Event Note: GI Consult-Full note dictated-History via patient and EMR. Patient's brother and father present. Imp: Probable ulcerative colitis. Rec: Check stool specimens. F/U labs. Colonoscopy on 06/[address] Hong. Full consent obtained for this, including risks of bleeding and perforation.I discussed potential treatment with steroids, mesalamine, etc, depending on the endoscopic findings and his clinical course. D/W patient and family in detail. The patient and his family were comfortable with this plan. Thanks
[2022-06-23 15:20] VITALS: BP 129/65; PULSE 76; RESP 18; TEMP 36.4; O2SAT 97
[2022-06-23] MEDS: PEG 3350/Na Sulf,Bicarb,Cl/KCL 4,000 ML SOLN.RECON 4000 ML PO (18:19)
[2022-06-23] MEDS: bisacodyL 5 MG TABLET.DR 10 MG PO (18:19)
[2022-06-23 19:07] VITALS: BP 124/72; PULSE 69; RESP 18; TEMP 36.5; O2SAT 98
[2022-06-24] VITALS (7 sets, daily range): BP systolic 107–148; BP diastolic 50–83; PULSE 71–91; RESP 15–18; TEMP 36.1–37.1; O2SAT 96–100
--- NOTE | 2022-06-24 01:53 | CONS_ITS ---
DATE OF SERVICE: 06/23/2022 REASON FOR CONSULTATION: Diarrhea, rectal bleeding, and abnormal CT scan of colon. HISTORY OF PRESENT ILLNESS: The patient is a 27-year-old male, who describes approximately 2 years of intermittent symptoms of diarrhea and rectal bleeding. History has been obtained for the patient, although the patient's father and brother are present as well. The patient describes that he has always been in good health, but over the past couple of years has had some intermittent problems with diarrhea and rectal bleeding. These episodes would tend to resolve and then he would be feeling fine for some period of time. However, over the past 2-3 months, he has had persistent problems on a daily basis consisting of at least several episodes of diarrhea and some bleeding. He describes being awakened while sleeping with these symptoms. He lost about 20 pounds. He had not sought medical attention for it. He denies any preceding history of travel, ill contacts, nor antibiotic use. There is no family history of inflammatory bowel disease, nor GI malignancy. Over the past 48 hours, he describes the onset of stiff and painful joints, although without any swelling nor redness. He describes that this involved his knees, elbows, hands, and hips. He also notes a slight rash on his hands. The painful joints were the main reason he came to the ER. In the ER, he was found to be iron deficient and a CT scan described the changes of colitis. He was therefore admitted. Since admission here he describes about 2 more loose stools, although he is not really been eating much. He presently denies any abdominal pain. He has been afebrile. He denies any associated nausea, nor vomiting. He denies any significant heartburn nor dysphagia. He denies any signs of jaundice. He denies any melena. He denies using any significant amounts of NSAIDs nor aspirin at home. He does not smoke nor use any significant amounts of alcohol. MEDICATIONS AT HOME: None. PAST MEDICAL HISTORY: He denies a history of heart disease, diabetes, stroke, lung disease, nor kidney disease. He denies any significant surgeries. SOCIAL HISTORY: He works in a factory. He presently does not smoke, nor use any alcohol. He is single. FAMILY HISTORY: Noncontributory. REVIEW OF SYSTEMS: CONSTITUTIONAL: He has been feeling somewhat anorectic and tired at home. SKIN: As above. CARDIAC: No chest pain. PULMONARY: No coughing, no hemoptysis. GI: As above. PHYSICAL EXAMINATION: GENERAL: The patient is a pleasant, alert, well-appearing male in no distress. He has been afebrile. SKIN: Warm and dry. He does appear somewhat pale. NECK: Supple. CHEST: Clear. CARDIAC: Normal S1, S2. ABDOMEN: Soft, nondistended, normal bowel sounds and nontender. There is no palpable organomegaly or mass. EXTREMITIES: Without edema. There is no sign of any erythema nodosum on the lower extremities. LABORATORY DATA: White blood cell count 17.6, hemoglobin 11.7, MCV 68, platelets 514,000. Sedimentation rate 25. Sodium 133, potassium 3.9, chloride 96, CO2 26, BUN 5, creatinine 0.8, calcium 9.5, iron 9, iron saturation 2%, ferritin 13. Normal LFTs. Albumin 4.3, lipase 10. Stools positive for occult blood. GI panel is negative. Stool for C diff is negative. Stool for ova and parasite are pending. COVID test is negative. He did have a CT scan of the abdomen describing changes consistent with diffuse pancolitis with some thickening of the colon all the way down to the rectum. There was some mild lymphadenopathy and some inflammatory changes around the colon as well. There was no sign of any perforation, nor abscess. IMPRESSION: Given the patient's clinical history, this certainly seems consistent with underlying ulcerative colitis given the chronicity of his symptoms, the CT scan findings, and the laboratory workup. At this point, I would recommend colonoscopy tomorrow with either myself or Dr. Hong with monitored anesthesia care for further evaluation, so as to make a definitive diagnosis and to stage the extent of his disease. Full consent has been obtained for that, including risks of bleeding and perforation. In the meantime, I would continue supportive care tonight. I do not think this is any type of enteric infection. I did review with the patient and his family that depending upon the endoscopic findings and his clinical course, he may need treatment with steroids, but would need at least treatment with a mesalamine agent. He currently does not appear to be toxic, nor severely symptomatic from a GI standpoint, and therefore we may be able to discharge him on mesalamine to see if that gives him relief prior to having to initiate steroids. He will have his laboratories followed in the morning. Full consent has been obtained from him for the colonoscopy, including risks of bleeding and perforation. This has all been discussed with the patient and his family in detail. They are comfortable with the plan. Thank you for the consultation. MD JUAN Lindo/ANTONINO / [id number] MTDD
[2022-06-24 05:55] LABS: MANUAL DIFF FLAG NO
[2022-06-24 06:00] LABS: Basophils Absolute Auto 0.1 X10*3/uL (0.0-0.2); Basophils Percent Auto 0.6 % (0-2); Eosinophils Percent Auto 7.6 % (0-4); Hematocrit 37.7 % (42.0-52.0); Hemoglobin 11.3 g/dl (14.0-18.0); Imm Gran Abs Auto 0.04 X10*3/uL (0.00-0.03); Imm Gran Pct Auto 0.3 % (0.0-0.4); Lymphocytes Absolute Auto 2.3 X10*3/uL (1.2-4.9); Mean Corpuscular Hemoglobin 20.8 pg (27.0-33.0); Mean Corpuscular Volume 69.6 fL (80.0-98.0); Mean Platelet Volume 10.2 fL (9.4-12.4); Monocytes Absolute Auto 1.2 X10*3/uL (0.1-1.2); Monocytes Percent Auto 9.6 % (2-11); Neutrophils Absolute Auto 8.1 x10*3/uL (2.0-8.3); Neutrophils Percent Auto 63.9 % (45-73); Platelet Count 594 X10*3/uL (160-400); Red Blood Count 5.42 X10*6/uL (4.60-5.80); Red Cell Distribution Width 16.1 % (11.0-16.0); White Blood Count 12.8 X10*3/uL (4.8-10.8)
[2022-06-24 06:04] LABS: INTERNATIONAL NORM RATIO 1.3 (0.9-1.1); Prothrombin Time 14.5 SEC (10.0-13.1)
[2022-06-24 06:31] LABS: Anion Gap 15 (12-20); Blood Urea Nitrogen 3 mg/dL (9-16); Calcium 9.7 mg/dL (8.4-10.2); Carbon Dioxide 28 mmol/L (22-29); Chloride 97 mmol/L (96-108); Creatinine Clr Calc Pharmacy 180.4; Estimated Glomerular Filt Rate > 60; Glucose Fasting 94 mg/dL (60-99); Potassium 3.9 mmol/L (3.3-5.1); Sodium 136 mmol/L (135-145)
[2022-06-24] MEDS: 0.9 % Sodium Chloride Flush 3 ML SYRINGE IVFLUSH ×3 (09:19→20:00)
[2022-06-24] MEDS: Iron Sucrose Complex 200 MG in 0.9 % Sodium Chloride 100 ML 440 MG IV (09:19)
--- NOTE | 2022-06-24 10:14 | P.PNIM_ITS ---
Subjective Subjective Date of Service: 06/24/22 Interval History: cc: abd pain interval history: somewhat better today Cardiovascular Cardiovascular: Reports no additional cardiovascular complaints Respiratory Respiratory: Reports no additional respiratory complaints Physical Exam Vital Signs: Vital Signs: Last Vital Signs Temp 98.7 F 06/24/22 08:00 Pulse 71 06/24/22 08:00 Resp 18 06/24/22 08:00 BP 120/64 06/24/22 08:00 Pulse Ox 97 06/24/22 08:00 O2 Del Method 06/24/22 08:00 BMI result Body Mass Index 38.1 General: AO X 3, no acute distress Resp: CTA bilateral, no accessory muscles used CVS: S1,S2,RRR GI: soft, non tender, non distended Neuro: motor grossly intact, alert Psych: appropriate affect, appropriate insight skin: EM rash on palms Objective Data Active Medications Acetaminophen (Acetaminophen 325 Mg Tablet) 650 mg PO Q6H PRN PRN Reason: Pain, Mild (Pain Scale 1-3) Iron Sucrose 200 mg/ Sodium (Chloride) 110 mls @ 440 mls/hr IV DAILY@1000 [facility] Stop: 06/25/22 10:14 Last Infusion: 06/24/22 09:39 Dose: 0 mls/hr Documented By: KAYLIE Sodium Chloride (0.9 % Sodium Chloride Flush 3 Ml Syringe) 3 ml IVFLUSH [facility] Last Admin: 06/24/22 09:19 Dose: 3 ml Documented By: KAYLIE Labs CBC & Chem 7: 06/24/22 05:03 06/24/22 05:03 Labs: Laboratory Results - last 24 hr 06/22/22 06/23/22 06/24/22 22:22 12:30 05:03 MCV MCH MCHC RDW Plt Count MPV Immature Gran % (Auto) Neut % (Auto) Lymph % (Auto) [place] % (Auto) Eos % (Auto) Baso % (Auto) Lymph # (Auto) [place] # (Auto) Eos # (Auto) Baso # (Auto) Abs Immat Gran (auto) Absolute Neuts (auto) Absolute Nucleated RBC Nucleated RBC % (auto) PT 14.5 H INR 1.3 H Anion Gap Estim Creat Clear Calc Estimated GFR Fasting Glucose Calcium Stl C. cayetanensis PCR Not Detected Stool Rotavirus A PCR Not Detected Stl Adenov F 40/41 PCR Not Detected Stool Astrovirus (PCR) Not Detected Stool Campylobacter PCR Not Detected Stool Cryptosporidium PCR Not Detected Stl Sh Tox Pr E STEC PCR Not Detected Stool E coli O157 PCR Not applicable Stl Enterotoxigenic E PCR Not Detected Stool EPEC (PCR) Not Detected Stool EAEC (PCR) Not Detected Stl E. histolytica PCR Not Detected Stool Giardia Lamblia PCR Not Detected Stl P. shigelloides PCR Not Detected Stool Salmonella PCR Not Detected Stool Sapovirus (PCR) Not Detected Stl Shigella/EIEC PCR Not Detected St Y.enterocolitica PCR Not Detected Stool Vibrio (PCR) Not Detected Stl Vibrio cholerae PCR Not Detected Stl Norovirus GI/GII PCR Not Detected C. difficile Tox B Gene NEGATIVE 06/24/22 06/24/22 05:03 05:03 MCV 69.6 L MCH 20.8 L MCHC 30.0 L RDW 16.1 H Plt Count 594 H MPV 10.2 Immature Gran % (Auto) 0.3 Neut % (Auto) 63.9 Lymph % (Auto) 18.0 L [place] % (Auto) 9.6 Eos % (Auto) 7.6 H Baso % (Auto) 0.6 Lymph # (Auto) 2.3 [place] # (Auto) 1.2 Eos # (Auto) 1.0 H Baso # (Auto) 0.1 Abs Immat Gran (auto) 0.04 H Absolute Neuts (auto) 8.1 Absolute Nucleated RBC 0.000 Nucleated RBC % (auto) 0.0 PT INR Anion Gap 15 Estim Creat Clear Calc 180.4 Estimated GFR > 60 Fasting Glucose 94 Calcium 9.7 Stl C. cayetanensis PCR Stool Rotavirus A PCR Stl Adenov F 40/41 PCR Stool Astrovirus (PCR) Stool Campylobacter PCR Stool Cryptosporidium PCR Stl Sh Tox Pr E STEC PCR Stool E coli O157 PCR Stl Enterotoxigenic E PCR Stool EPEC (PCR) Stool EAEC (PCR) Stl E. histolytica PCR Stool Giardia Lamblia PCR Stl P. shigelloides PCR Stool Salmonella PCR Stool Sapovirus (PCR) Stl Shigella/EIEC PCR St Y.enterocolitica PCR Stool Vibrio (PCR) Stl Vibrio cholerae PCR Stl Norovirus GI/GII PCR C. difficile Tox B Gene Microbiology Microbiology Results: Microbiology 06/22/22 17:19 Blood Culture - Preliminary Blood - Venous No growth after 24 hours. 06/22/22 17:25 Blood Culture - Preliminary Blood - Venous No growth after 24 hours. Assessment and Plan (1) Acute colitis: Status: Acute Plan 27M presented with arthralgias, bloody diarrhea, unintentional weight loss, erythema multiforme, found to have colitis Colitis with arthralgias, bloody diarrhea, unintentional weight loss, erythema multiforme, iron deficiency anemia GI appreciated, most c/w IBD, plan for flex sig stool studies negative giving iv iron Low risk for DVT, early ambulation Full code reason for continued hospitalization:plan for inpatient flex sig Quality Stroke Does the patient have a stroke diagnosis?: No VTE Prior VTE?: No VTE Risk Level:: Medical - low VTE Device Contraindication: Treatment Not Indicated VTE Drug Contraindication: Treatment Not Indicated
[2022-06-24 10:18] LABS: Syphilis Screen Nonreactive (Nonreactive)
--- NOTE | 2022-06-24 11:36 | P.CONAN_ITS ---
HPI - Anesthesia Eval Consult details Narrative: 27 M for colonoscopy PMFSH Active Problems Active Problems: All Active Problems (Updated 06/22/22 @ 17:24 by Param Wilburn MD) Acute colitis (Acute) Joint pain (Acute) Rash (Acute) Bloody diarrhea (Acute) Unintended weight loss (Acute) Past Medical History Functional capacity: independent ambulation Family History Family History (Updated 06/22/22 @ 18:56 by Lenard Roy MD) Father Diabetes Family history of problems with anesthesia: No Surgical History History of Problems with Anesthesia: No Social History Social History (Updated 06/22/22 @ 18:56 by Lenard Roy MD) Household Members: Family Housing: House Do you presently have visiting nurse or other home services: No Alcohol intake: never Patient Tobacco Use Status: Former Tobacco user Quit Date: 6 mos ago Tobacco use type: Cigarette Years Smoked: 6 Smoked in Last 30 Days: No e-Cigarette/Vaping Use: Never Used Patient Interested in Nicotine Replacement: No Patient Given Instructions on How to Stop Smoking: No Second Hand Smoke Exposure: No Use of substances other than those prescribed or required for medical reasons: No Currently Displaying Signs/Symptoms of Drug Intoxication Withdrawal: No Have you been hit, kicked, punched, or otherwise hurt by someone within the past year? If so, by whom?: No Do you feel safe in your current relationship?: No Current Relationship Is there a partner from a previous relationship who is making you feel unsafe now?: No Are you made to feel afraid or neglected: No Are you DNR?: No Advance Directives: No Advance Directives Information Provided: No (Declined) Do you have thoughts of harming others: None Do you have a plan to hurt others: No Plan Recently lost weight without trying: Yes How much weight loss: 14-23 pounds Eating poorly because of decreased appetite: Yes Nutrition screen score: 5 Nutrition Risks: No Nutritional Risk Poor oral hygiene: No service: No Current occupational status: employed Meds Allergies Allergy/AdvReac Type Severity Reaction Status Date / Time No Known Allergies Allergy Unverified 04/02/20 17:05 Active Medications: Current Medications Acetaminophen (Acetaminophen 325 Mg Tablet) 650 mg PO Q6H PRN PRN Reason: Pain, Mild (Pain Scale 1-3) Iron Sucrose 200 mg/ Sodium (Chloride) 110 mls @ 440 mls/hr IV DAILY@1000 [facility] Stop: 06/25/22 10:14 Last Infusion: 06/24/22 09:39 Dose: Infused Sodium Chloride (0.9 % Sodium Chloride Flush 3 Ml Syringe) 3 ml IVFLUSH QSHIFT [facility] Last Admin: 06/24/22 09:19 Dose: 3 ml Home Medications Medication Instructions Recorded Confirmed Last Taken Type No Known Home Meds 06/22/22 06/22/22 Unknown History Exam Exam Date and Time: June 24, 2022 1136 Height,Weight and Vital Signs: Height 5 ft 9 in Weight 117.2 kg Last Vital Signs Temp 98.0 F 06/24/22 10:43 Pulse 74 06/24/22 10:43 Resp 15 06/24/22 10:43 BP 148/83 H 06/24/22 10:43 Pulse Ox 96 06/24/22 10:43 O2 Del Method 06/24/22 10:43 Pertinent Lab Results Pertinent Lab Results: Laboratory Tests 06/22/22 06/22/22 06/22/22 11:43 11:43 11:43 WBC 17.6 H RBC 5.54 Hgb 11.7 L Hct 37.8 L MCV 68.2 L MCH 21.1 L MCHC 31.0 RDW 16.1 H Plt Count 514 H MPV 9.7 Immature Gran % (Auto) 0.3 Neut % (Auto) 74.5 H Lymph % (Auto) 9.3 L Starr % (Auto) 10.7 Eos % (Auto) 4.9 H Baso % (Auto) 0.3 Lymph # (Auto) 1.6 Starr # (Auto) 1.9 H Eos # (Auto) 0.9 H Baso # (Auto) 0.1 Abs Immat Gran (auto) 0.06 H Absolute Neuts (auto) 13.1 H Absolute Nucleated RBC 0.000 Nucleated RBC % (auto) 0.0 Smear Tech's Comments VERIFIED ESR 25 H PT INR Sodium 133 L Potassium 3.9 Chloride 96 Carbon Dioxide 26 Anion Gap 15 BUN 5 L Creatinine 0.82 Estim Creat Clear Calc 176.8 Estimated GFR > 60 Random Glucose 110 Fasting Glucose Calcium 9.5 Iron 9 L TIBC 407 % Saturation 2 L Unsat Iron Binding 398 Ferritin 13 L Total Bilirubin 0.3 Direct Bilirubin < 0.2 AST 13 ALT 15 Alkaline Phosphatase 91 Total Protein 8.1 H Albumin 4.3 Lipase 10 Urine Color Urine Appearance Urine pH Ur Specific [place] Urine Protein Urine Glucose (UA) Urine Ketones Urine Blood Urine Nitrite Ur Leukocyte Esterase Urine RBC Urine WBC Ur Squamous Epith Cells Urine Bacteria Hyaline Casts Stool Occult Blood Stl C. cayetanensis PCR Stool Rotavirus A PCR Stl Adenov F PCR Stool Astrovirus (PCR) Stool Campylobacter PCR Stool Cryptosporidium PCR Stl Sh Tox Pr E STEC PCR Stool E coli O157 PCR Stl Enterotoxigenic E PCR Stool EPEC (PCR) Stool EAEC (PCR) Stl E. histolytica PCR Stool Giardia Lamblia PCR Stl P. shigelloides PCR Stool Salmonella PCR Stool Sapovirus (PCR) Stl Shigella/EIEC PCR St Y.enterocolitica PCR Stool Vibrio (PCR) Stl Vibrio cholerae PCR Stl Norovirus GI/GII PCR T.pallidum Ab (EIA) C. difficile Tox B Gene Influenza Type A (PCR) Influenza Type B (PCR) RSV RNA Qual (PCR) SARS-CoV-2 RNA (RT-PCR) 06/22/22 06/22/22 06/22/22 11:43 16:00 22:22 WBC RBC Hgb Hct MCV MCH MCHC RDW Plt Count MPV Immature Gran % (Auto) Neut % (Auto) Lymph % (Auto) Starr % (Auto) Eos % (Auto) Baso % (Auto) Lymph # (Auto) Starr # (Auto) Eos # (Auto) Baso # (Auto) Abs Immat Gran (auto) Absolute Neuts (auto) Absolute Nucleated RBC Nucleated RBC % (auto) Smear Tech's Comments ESR PT INR Sodium Potassium Chloride Carbon Dioxide Anion Gap BUN Creatinine Estim Creat Clear Calc Estimated GFR Random Glucose Fasting Glucose Calcium Iron TIBC % Saturation Unsat Iron Binding Ferritin Total Bilirubin Direct Bilirubin AST ALT Alkaline Phosphatase Total Protein Albumin Lipase Urine Color Yellow Urine Appearance Clear Urine pH 5.5 Ur Specific [place] >= 1.030 H Urine Protein Negative Urine Glucose (UA) Negative Urine Ketones 80 Urine Blood Negative Urine Nitrite Negative Ur Leukocyte Esterase Negative Urine RBC 0-2 Urine WBC 0-5 Ur Squamous Epith Cells 0-2 Urine Bacteria None Seen Hyaline Casts 0-2 Stool Occult Blood POSITIVE Stl C. cayetanensis PCR Stool Rotavirus A PCR Stl Adenov PCR Stool Astrovirus (PCR) Stool Campylobacter PCR Stool Cryptosporidium PCR Stl Sh Tox Pr E STEC PCR Stool E coli O157 PCR Stl Enterotoxigenic E PCR Stool EPEC (PCR) Stool EAEC (PCR) Stl E. histolytica PCR Stool Giardia Lamblia PCR Stl P. shigelloides PCR Stool Salmonella PCR Stool Sapovirus (PCR) Stl Shigella/EIEC PCR St Y.enterocolitica PCR Stool Vibrio (PCR) Stl Vibrio cholerae PCR Stl Norovirus GI/GII PCR T.pallidum Ab (EIA) C. difficile Tox B Gene Influenza Type A (PCR) NEGATIVE Influenza Type B (PCR) NEGATIVE RSV RNA Qual (PCR) NEGATIVE SARS-CoV-2 RNA (RT-PCR) NEGATIVE 06/22/22 06/22/22 06/23/22 22:22 22:22 05:02 WBC 17.1 H RBC 5.32 Hgb 11.3 L Hct 37.0 L MCV 69.5 L MCH 21.2 L MCHC 30.5 L RDW 16.0 Plt Count 579 H MPV 10.2 Immature Gran % (Auto) Neut % (Auto) Lymph % (Auto) Starr % (Auto) Eos % (Auto) Baso % (Auto) Lymph # (Auto) Starr # (Auto) Eos # (Auto) Baso # (Auto) Abs Immat Gran (auto) Absolute Neuts (auto) Absolute Nucleated RBC 0.000 Nucleated RBC % (auto) 0.0 Smear Tech's Comments ESR PT INR Sodium Potassium Chloride Carbon Dioxide Anion Gap BUN Creatinine Estim Creat Clear Calc Estimated GFR Random Glucose Fasting Glucose Calcium Iron TIBC % Saturation Unsat Iron Binding Ferritin Total Bilirubin Direct Bilirubin AST ALT Alkaline Phosphatase Total Protein Albumin Lipase Urine Color Urine Appearance Urine pH Ur Specific [place] Urine Protein Urine Glucose (UA) Urine Ketones Urine Blood Urine Nitrite Ur Leukocyte Esterase Urine RBC Urine WBC Ur Squamous Epith Cells Urine Bacteria Hyaline Casts Stool Occult Blood Stl C. cayetanensis PCR Not Detected Stool Rotavirus A PCR Not Detected Stl Adenov F 40/41 PCR Not Detected Stool Astrovirus (PCR) Not Detected Stool Campylobacter PCR Not Detected Stool Cryptosporidium PCR Not Detected Stl Sh Tox Pr E STEC PCR Not Detected Stool E coli O157 PCR Not applicable Stl Enterotoxigenic E PCR Not Detected Stool EPEC (PCR) Not Detected Stool EAEC (PCR) Not Detected Stl E. histolytica PCR Not Detected Stool Giardia Lamblia PCR Not Detected Stl P. shigelloides PCR Not Detected Stool Salmonella PCR Not Detected Stool Sapovirus (PCR) Not Detected Stl Shigella/EIEC PCR Not Detected St Y.enterocolitica PCR Not Detected Stool Vibrio (PCR) Not Detected Stl Vibrio cholerae PCR Not Detected Stl Norovirus GI/GII PCR Not Detected T.pallidum Ab (EIA) C. difficile Tox B Gene NEGATIVE Influenza Type A (PCR) Influenza Type B (PCR) RSV RNA Qual (PCR) SARS-CoV-2 RNA (RT-PCR) 06/23/22 06/23/22 06/23/22 05:02 05:02 12:30 WBC RBC Hgb Hct MCV MCH MCHC RDW Plt Count MPV Immature Gran % (Auto) Neut % (Auto) Lymph % (Auto) Starr % (Auto) Eos % (Auto) Baso % (Auto) Lymph # (Auto) Starr # (Auto) Eos # (Auto) Baso # (Auto) Abs Immat Gran (auto) Absolute Neuts (auto) Absolute Nucleated RBC Nucleated RBC % (auto) Smear Tech's Comments ESR PT INR Sodium 137 Potassium 4.7 D Chloride 100 Carbon Dioxide 25 Anion Gap 17 BUN 3 L Creatinine 0.79 Estim Creat Clear Calc 175.8 Estimated GFR > 60 Random Glucose Fasting Glucose 88 Calcium 9.5 Iron TIBC % Saturation Unsat Iron Binding Ferritin Total Bilirubin Direct Bilirubin AST ALT Alkaline Phosphatase Total Protein Albumin Lipase Urine Color Urine Appearance Urine pH Ur Specific [place] Urine Protein Urine Glucose (UA) Urine Ketones Urine Blood Urine Nitrite Ur Leukocyte Esterase Urine RBC Urine WBC Ur Squamous Epith Cells Urine Bacteria Hyaline Casts Stool Occult Blood Stl C. cayetanensis PCR Stool Rotavirus A PCR Stl Adenov F 40/41 PCR Stool Astrovirus (PCR) Stool Campylobacter PCR Stool Cryptosporidium PCR Stl Sh Tox Pr E STEC PCR Stool E coli O157 PCR Stl Enterotoxigenic E PCR Stool EPEC (PCR) Stool EAEC (PCR) Stl E. histolytica PCR Stool Giardia Lamblia PCR Stl P. shigelloides PCR Stool Salmonella PCR Stool Sapovirus (PCR) Stl Shigella/EIEC PCR St Y.enterocolitica PCR Stool Vibrio (PCR) Stl Vibrio cholerae PCR Stl Norovirus GI/GII PCR T.pallidum Ab (EIA) Nonreactive C. difficile Tox B Gene NEGATIVE Influenza Type A (PCR) Influenza Type B (PCR) RSV RNA Qual (PCR) SARS-CoV-2 RNA (RT-PCR) 06/24/22 06/24/22 06/24/22 05:03 05:03 05:03 WBC 12.8 H RBC 5.42 Hgb 11.3 L Hct 37.7 L MCV 69.6 L MCH 20.8 L MCHC 30.0 L RDW 16.1 H Plt Count 594 H MPV 10.2 Immature Gran % (Auto) 0.3 Neut % (Auto) 63.9 Lymph % (Auto) 18.0 L Starr % (Auto) 9.6 Eos % (Auto) 7.6 H Baso % (Auto) 0.6 Lymph # (Auto) 2.3 Starr # (Auto) 1.2 Eos # (Auto) 1.0 H Baso # (Auto) 0.1 Abs Immat Gran (auto) 0.04 H Absolute Neuts (auto) 8.1 Absolute Nucleated RBC 0.000 Nucleated RBC % (auto) 0.0 Smear Tech's Comments ESR PT 14.5 H INR 1.3 H Sodium 136 Potassium 3.9 Chloride 97 Carbon Dioxide 28 Anion Gap 15 BUN 3 L Creatinine 0.77 Estim Creat Clear Calc 180.4 Estimated GFR > 60 Random Glucose Fasting Glucose 94 Calcium 9.7 Iron TIBC % Saturation Unsat Iron Binding Ferritin Total Bilirubin Direct Bilirubin AST ALT Alkaline Phosphatase Total Protein Albumin Lipase Urine Color Urine Appearance Urine pH Ur Specific [place] Urine Protein Urine Glucose (UA) Urine Ketones Urine Blood Urine Nitrite Ur Leukocyte Esterase Urine RBC Urine WBC Ur Squamous Epith Cells Urine Bacteria Hyaline Casts Stool Occult Blood Stl C. cayetanensis PCR Stool Rotavirus A PCR Stl Adenov F 40/41 PCR Stool Astrovirus (PCR) Stool Campylobacter PCR Stool Cryptosporidium PCR Stl Sh Tox Pr E STEC PCR Stool E coli O157 PCR Stl Enterotoxigenic E PCR Stool EPEC (PCR) Stool EAEC (PCR) Stl E. histolytica PCR Stool Giardia Lamblia PCR Stl P. shigelloides PCR Stool Salmonella PCR Stool Sapovirus (PCR) Stl Shigella/EIEC PCR St Y.enterocolitica PCR Stool Vibrio (PCR) Stl Vibrio cholerae PCR Stl Norovirus GI/GII PCR T.pallidum Ab (EIA) C. difficile Tox B Gene Influenza Type A (PCR) Influenza Type B (PCR) RSV RNA Qual (PCR) SARS-CoV-2 RNA (RT-PCR) Airway TM Dist: >3cm Loose/Missing/Broken Teeth: Yes Assessment and Plan Final Anesthetic Review Family History of Problems with Anesthesia: No History of Problems with Anesthesia: No
--- NOTE | 2022-06-24 12:18 | P.BOP_ITS ---
Brief Operative Note Date of Service: 06/24/22 Pre-op diagnosis: colitis Post-op diagnosis: same Procedure: colonoscopy Surgeon: Francisco Hong Anesthesia: MAC Was an Screen Printing Machine Operator Helper used for this Procedure?: No Estimated blood loss (mL): 5 Pathology: other Condition: stable Disposition: PACU
--- NOTE | 2022-06-24 12:19 | PM.EVENT ---
Event Note Date of Service: 06/24/22 Event Note: Colonscopy dictated Pancolitis with most severe involvement in descending and rectosigmoid colon. Normal terminal ileum biopsies obtained Appearance is c/w ulcerative colitis Mesalamine and steroids ordered. Diet advanced F/u bx results.
[2022-06-24] MEDS: methylPREDNISolone Sod Succ 40 MG/ML VIAL 20 MG IVPUSH ×2 (14:03→20:00)
--- NOTE | 2022-06-24 14:56 | P.CDIC_ITS ---
CDI Concurrent Query Documentation Clarification: PHYSICIAN'S DOCUMENTATION REQUEST Date of Query: 06/24/22 1960 Patient Name: Luis Darling Admit Date: 06/22/22 Dear Doctor, A review of the medical record indicates additional documentation may be needed. Please review below and update the documentation accordingly. Clinical Indicators: Is there a diagnosis that correlates with the findings below: Risk Factors/Clinical Indicators/Treatments POA/TREAT/RESOLVED/RULE OUT Per provider progress notes: bloody diarrhea, unintentional weight loss Per H&P on 06/22: Patient reports he has been feeling ill for 2-3 months.? He has lost about 20 lb in that time unintentionally.? Decreased appetite.? Loose stools with blood. Per nutrition consult on 06/23: RECOMMEND ADDING ENSURE CLEAR TID TO INCREASE KCALS MONITOR PO INTAKE CLOSELY ASPEN Criteria* Acute Illness Chronic Illness Clinical Characteristic Non-Severe (2 or more criteria present) Severe (2 or more criteria present) Non-Severe (2 or more criteria present) Severe (2 or more criteria present) Energy Intake <75% for >7 days <=50% for >=5 days <75% for >=1 month <=75% for >=1 month Weight Loss 1 week 1 ? 2% >2% N/A N/A 1 month 5% >5% 5% >5% 3 months 7.5 % >7.5% 7.5% >7.5% 6 months N/A N/A 10% >10% 1 year N/A N/A 20% >20% Body Fat Mild Moderate Mild Severe Muscle Mass Mild Moderate Mild Severe Fluid Accumulation Mild Moderate to Severe Mild Severe Reduced Application Security Engineer Strength N/A Measurably Reduced N/A Measurably Reduced *ACP Hospitalist, 2017 If possible, please provide in your progress notes, additional specificity regarding the severity of the malnutrition using the above information: Malnutrition: * Mild * Moderate * Severe * Other (please specify) * Unable to determine Use of terms such as suspected, likely, concern for, or probable (associated with a specific diagnosis that is being evaluated, monitored, or treated as if it exists) are acceptable and can be coded in the inpatient setting, when documented at the time of discharge. Thank you, Maylin Umana, MS, RN, CCRN Extension: [phone] Please use your independent medical judgment in providing your response. THIS QUERY IS PART OF THE PERMANENT MEDICAL RECORD Provider Response: Other Other Diagnosis: no malnutrition
[2022-06-24] MEDS: Mesalamine 400 MG CAP.DRTAB. 800 MG PO ×2 (15:45→20:00)
--- NOTE | 2022-06-24 22:05 | OP_ITS ---
SURGEON: Francisco Hong MD INDICATIONS: Colitis. PREOPERATIVE DIAGNOSIS: POSTOPERATIVE DIAGNOSIS: PROCEDURE PERFORMED: Colonoscopy to the terminal ileum with biopsy. ESTIMATED BLOOD LOSS: COMPLICATIONS: ANESTHESIA: Monitored anesthesia care. ASSISTANTS: SPECIMENS: DESCRIPTION OF PROCEDURE: Date :06/24/22. History and physical performed. The risks and benefits of the procedure were explained to the patient. Informed consent was obtained. The patient was placed in the left lateral decubitus position. A digital rectal exam was performed and was found to be normal. The Olympus pediatric videocolonoscope was introduced into the rectum and advanced to the cecum without difficulty. The cecum was identified by transillumination, palpation, and identification of ileocecal valve. Examination was performed. The scope was removed. He tolerated the procedure well and was taken to recovery room in stable condition. FINDINGS: The terminal ileum was examined and appeared normal. The visualized colonic mucosa showed a pancolitis with involvement from the cecum to the rectum, mucosal changes included erythema, edema, ulceration, and loss of vascular pattern. This was confluent with the worst activity being seen in the left colon and rectosigmoid with lesser involvement in the transverse and right colon. Appearance was consistent with history of idiopathic ulcerative colitis. Biopsies were obtained from the terminal ileum, right colon, left colon, and rectosigmoid. Retroflexed examination showed colitis extending to the dentate line. IMPRESSION: Colitis. RECOMMENDATIONS: 1. Follow up with biopsy results. 2. Begin treatment with mesalamine and steroids. 3. Screening colonoscopy is recommended in 10 years for average risk individuals. For patient with ulcerative colitis, followup colonoscopy will depend on clinical course, Including response to treatment. MD OLGA Cosme/MARIBELL / [id number] MTDD
[2022-06-25 03:49] VITALS: BP 142/78; PULSE 77; RESP 18; TEMP 36.7; O2SAT 100
[2022-06-25] MEDS: methylPREDNISolone Sod Succ 40 MG/ML VIAL 20 MG IVPUSH (05:24)
[2022-06-25 07:18] VITALS: BP 124/65; PULSE 77; RESP 17; TEMP 37.3; O2SAT 97
[2022-06-25] MEDS: Mesalamine 400 MG CAP.DRTAB. 800 MG PO (07:45)
[2022-06-25] MEDS: 0.9 % Sodium Chloride Flush 3 ML SYRINGE IVFLUSH (07:45)
[2022-06-25] MEDS: Iron Sucrose Complex 200 MG in 0.9 % Sodium Chloride 100 ML 440 MG IV (07:46)
--- NOTE | 2022-06-25 09:35 | P.DS_ITS ---
DS: Providers Provider Date of Service: 06/25/22 Date of admission: 06/22/22 18:44 Primary care physician: None Physician Consults: 06/22/22 18:28 Consult to Gastroenterology Routine Consulting Provider: Teja Grant Reason for consultation: colitis, weight loss DS: Diagnosis Discharge Diagnosis (1) Acute colitis: Status: Deleted DS: Summary Hospital Course Hospital Course: from initial hpi: Chief Complaint: diarrhea, blood in stool, weight loss 27M no significant pmh presented with diarrhea.? Patient reports he has been feeling ill for 2-3 months.? He has lost about 20 lb in that time unint entionally.? Decreased appetite.? Loose stools with blood.? Intermittent rash on palms of hands.? Recently started having joint pains.? Also complaining of periumbilical abdominal pain 5 out 10 radiating diffusely associated with nausea without vomiting.? Patient reports feeling warm but has not measured any fevers.? Denies any travel, sick contacts.? In ED lab significant for leukocytosis, thrombocytosis, microcytic anemia, CT with colitis. hospital course: Patient was admitted for pancolitis with all trial just, bloody diarrhea, unintentional weight loss, erythema multiforme, iron deficiency anemia. stool PCR was negative. He was seen by Gastroenterology Who performed colonoscopy which was consistent with ulcerative colitis. Biopsies were taken and are pending. Patient was put on IV steroids and mesalamine with improvement in symptoms. He was also given IV iron. Patient is feeling much better and will be discharged home on prednisone taper and mesalamine. He will follow up with Gastroenterology as outpatient. Time Spent with Patient Time attestation: Total time managing care of this patient today ____ minutes. Discharge coordination time: Greater than 30 minutes Quality: Safe Use of Opioids Does Pt have an Active Cancer Diagnosis on the Problem List?: No Quality: Stroke Does the patient have a stroke diagnosis?: No Physical Exam Vital Signs: Vital Signs: Last Vital Signs Temp 99.2 F 06/25/22 07:18 Pulse 77 06/25/22 07:18 Resp 17 06/25/22 07:18 BP 124/65 06/25/22 07:18 Pulse Ox 97 06/25/22 07:18 O2 Del Method 06/25/22 07:18 O2 Flow Rate 6 06/24/22 12:16 BMI result Body Mass Index 38.1 General: AO X 3, no acute distress Resp: CTA bilateral, no accessory muscles used CVS: S1,S2,RRR GI: soft, non tender, non distended Neuro: motor grossly intact, alert Psych: appropriate affect, appropriate insight DS: Data Data Completed and Pending Pending studies at discharge: Pending at discharge 06/24/22 12:03 Surgical [PTH] Routine Labs on day of discharge: Laboratory Results - last 24 hr 06/23/22 05:02 T.pallidum Ab (EIA) Nonreactive Preliminary micro results at discharge 06/22/22 17:19 Blood Culture - Preliminary Blood - Venous No growth after 48 hours. 06/22/22 17:25 Blood Culture - Preliminary Blood - Venous No growth after 48 hours. Discharge Plan Discharge Anticipated Discharge Date/Time: 06/25/22 09:19 Patient Disposition: Home, Self-Care Discharge Diagnosis: ulcerative colitis Referrals: PhysicianAngus [Primary Care Provider] - 1 Week Teja Grant [Physician] - 1 Week Discharge Medications: New mesalamine [Delzicol] 400 mg Capsule (With Del Rel Tablets) 800 mg PO TID Qty: 180 0RF prednisone 20 mg tablet 40 mg PO DAILY Qty: 60 0RF Rx Instructions: 40mg daily for 1 week, wean by 5mg/day per week for 8 weeks total Discharge Orders: Discharge Order (Routine); Ordered 06/25/22 Ordered By: Lenard Roy Diet: no nsaids Activity on Discharge: As tolerated Stand Alone Forms: Patient Portal Discharge page Care Plan Goals: manage ulcerative colitis Health Concerns: ulcerative colitis Plan of Treatment: prednisone taper, mesalamine, follow up with GI, no NSAIDs Assessment: see above
--- NOTE | 2022-06-25 09:45 | MHC.CM.PN ---
DP: PT MEDICALLY CLEARED FOR DC HOME, NO SERVICES. RN AWARE. FAMILY WILL TRANSPORT
== END 2022-06-25 13:00 | disposition home or self-care (01) | DRG 245 ==
LOC: HO.ED 17:24 → HO.EDOVER 19:02 → HO.S3 19:45 → HO.EDOVER 19:49 → HO.S3 23:20
PROVIDERS: Emergency Medicine Emergency Medical Services; Internal Medicine; Internal Medicine Gastroenterology; Admitting Provider Internal Medicine; Emergency Provider Emergency Medicine Emergency Medical Services; Visit Provider Internal Medicine
PROC: 0DJD8ZZ Inspection of Lower Intestinal Tract, Via Natural or Artificial Opening Endoscopic (ICD-10-PCS; CPT 45378; principal; 2022-06-24 11:20)
DX: K51.811 Other ulcerative colitis with rectal bleeding (principal); D50.9 Iron deficiency anemia, unspecified; L51.9 Erythema multiforme, unspecified; Z20.822 Contact with and (suspected) exposure to COVID-19; Z87.891 Personal history of nicotine dependence
CPT/HCPCS: 0241U; 36415; 74177; 80048; 80076; 81001; 82272; 82728; 83540; 83690; 85025; 85027; 85610; 85652; 86780; 87040; 87177; 87209; 87493; 87507; 88305; 99218; 99285; J1756; J1956; J2920; Q9967

== ENCOUNTER 2022-10-11 14:57 | Inpatient (IN) | payer OTHER, SELFPAY ==
--- NOTE | ~2022-10-11 | CT_ITS ---
EXAMINATION: CT ABDOMEN AND PELVIS WITH CONTRAST CLINICAL INFORMATION: Left-sided abdominal pain with rectal bleeding and history of colitis COMPARISON: None available. TECHNIQUE: Multidetector volumetric images were obtained from the superior aspect of the liver through the pubic symphysis following administration 85 mL of Omnipaque 350 intravenous contrast. Sagittal and coronal reformatted images were obtained on the technologist's workstation. Oral contrast: No This CT examination was performed using dose optimization techniques as appropriate, variously including the following: *Automated exposure control *Adjustment of mA and/or kV according to patient size (this includes techniques or standardized protocols for targeted exams where dose is matched to indication/reason for exam; i.e. extremities or head) *Use of iterative reconstruction technique DLP: 976 mGy-cm FINDINGS: LUNG BASES: The visualized lung bases are unremarkable. LIVER, GALLBLADDER, AND BILIARY TREE: The liver is enlarged measuring 19.8 cm in cephalocaudad dimension. Focal fat present adjacent to the falciform ligament. No worrisome solid focal hepatic lesion or biliary ductal dilatation is present. The gallbladder is unremarkable with no evidence of radiopaque gallstones, gallbladder wall thickening, or obvious pericholecystic inflammatory changes. PANCREAS: Unremarkable. SPLEEN: Unremarkable. ADRENAL GLANDS: Unremarkable. KIDNEYS AND URETERS: The kidneys are normal in size, shape, and attenuation. No hydronephrosis, hydroureter, or calculi seen. No perinephric stranding. BLADDER: Nearly empty but unremarkable. GASTROINTESTINAL TRACT: Again seen is mural/mucosal thickening of the colon involving the entire colon at this time. At the time of the prior study, similar findings were present but the transverse colon and ascending colon were not involved. No pneumatosis. No evidence of obstruction. The small bowel appears normal. The stomach is unremarkable. The appendix is normal. ABDOMINAL WALL: No significant hernia is appreciated. LYMPH NODES: Normal. VASCULAR: Unremarkable. PELVIC VISCERA: The prostate and seminal vesicles are unremarkable. No free intraperitoneal fluid is seen. OSSEOUS STRUCTURES: Unremarkable. A bone island is present just above the left acetabulum. CT/CT abdomen pelvis w IV con IMPRESSION: 1. Pancolitis. Similar findings were present on the prior study but the ascending colon and transverse colon were not involved. 2. Incidental note made of mild hepatomegaly. Fleischner guidelines were followed.
[2022-10-11 15:35] VITALS: BP 123/86; PULSE 85; RESP 18; TEMP 36.9; O2SAT 96; BMI 39.0
--- NOTE | 2022-10-11 15:36 | ED_ITS ---
HPI - Abdominal Pain General Chief Complaint: GI Bleed <HEATH Mcmullen - Last Filed: 10/11/22 15:40> Stated Complaint: Colitis <HEATH Mcmullen - Last Filed: 10/11/22 15:40> Time Seen by Provider: 10/11/22 20:39 <HEATH cMmullen - Last Filed: 10/11/22 15:40> Source: patient <Param Wilburn MD - Last Filed: 10/11/22 23:01> Mode of arrival: ambulatory <Param Wilburn MD - Last Filed: 10/11/22 23:01> Limitations: no limitations <Param Wilburn MD - Last Filed: 10/11/22 23:01> History of Present Illness HPI narrative: 27-year-old male diagnosed with ulcerative colitis when he was admitted to [facility] 06/22/2022 until 06/25/2022. At that time the patient had bloody diarrhea, abdominal pain and joint pain is upper extremities. He had a colonoscopy which was consistent with ulcerative colitis. He was treated with steroids and mesalamine. The patient states that he completed his course of steroids approximately 4 weeks prior he continues to take mesalamine. He states that over the past symptoms have come back. He complains of lower abdominal cramping left greater than right, 8/10 at its worse. Patient has had 6-8 mucou sy, bloody stools per day. He has had 2-3 episodes of vomiting per day with intermittent nausea. The patient states that his joint pain is resolved. He complains of having no appetite, feeling lightheaded, dizzy and weak. The patient denied fever but has been experiencing intermittent chills. He denied rhinorrhea, sore throat, cough, chest pain, shortness of breath. He denied myalgias or arthralgias. The patient has follow-up with a operating table assembler, Dr. Teja Grant as an outpatient. <Param Wilburn MD - Last Filed: 10/11/22 23:01> Related Data Home Medications: Previous Rx's Medication Instructions Recorded mesalamine 400 mg capsule (with 800 mg PO TID #180 ea 06/25/22 delayed release tablets inside) (Delzicol) prednisone 20 mg tablet 40 mg PO DAILY #60 tabs 06/25/22 <HEATH Mcmullen - Last Filed: 10/11/22 15:40> Allergies/Adverse Reactions: Allergies Allergy/AdvReac Type Severity Reaction Status Date / Time No Known Allergies Allergy Unverified 04/02/20 17:05 <HEATH Mcmullen - Last Filed: 10/11/22 15:40> Review of Systems Review of Systems Yes all other systems are reviewed and are negative <Param Wilburn MD - Last Filed: 10/11/22 23:01> [facility] Past Medical History [facility] Narrative: History: Patient denies tobacco, alcohol and drug use. <Param taylor MD - Last Filed: 10/11/22 23:01> Medical History: Medical History Iron (Fe) deficiency anemia Ulcerative colitis <HEATH Mcmullne - Last Filed: 10/11/22 15:40> Family History Family History: Family History Father Diabetes <HEATH Mcmullen - Last Filed: 10/11/22 15:40> Social History Social History: Social History Household Members: Family Housing: House Do you presently have visiting nurse or other home services: No Alcohol intake: never Patient Tobacco Use Status: Former Tobacco user Quit Date: 6 mos ago Tobacco use type: Cigarette Years Smoked: 6 e-Cigarette/Vaping Use: Never Used Second Hand Smoke Exposure: No Advance Directives: No Advance Directives Information Provided: No service: No Current occupational status: employed <HEATH Mcmullen - Last Filed: 10/11/22 15:40> Physical Exam ED Vital Signs: Vital Signs - 24 hr 10/11/22 15:35 10/11/22 20:36 10/11/22 22:32 Temperature 98.4 F 98.1 F 102.6 F H Pulse Rate 85 80 83 Respiratory Rate 18 18 16 Blood Pressure 123/86 122/75 122/67 Pulse Oximetry 96 97 97 Oxygen Delivery Method Room Air Room Air Room Air BMI result Body Mass Index 39.0 <HEATH Mcmullen - Last Filed: 10/11/22 15:40> Vital Signs - 24 hr 10/11/22 15:35 10/11/22 20:36 10/11/22 22:32 Temperature 98.4 F 98.1 F 102.6 F H Pulse Rate 85 80 83 Respiratory Rate 18 18 16 Blood Pressure 123/86 122/75 122/67 Pulse Oximetry 96 97 97 Oxygen Delivery Method Room Air Room Air Room Air BMI result Body Mass Index 39.0 <Param Wilburn MD - Last Filed: 10/11/22 23:01> Const General: cooperative and no acute distress <Param Wilburn MD - Last Filed: 10/11/22 23:01> Orientation/consciousness: oriented to person and oriented to place <Param Wilburn MD - Last Filed: 10/11/22 23:01> Limitations: no limitations <Param Wilburn MD - Last Filed: 10/11/22 23:01> HENMT Head: Yes normal to inspection, Yes normocephalic and Yes atraumatic <Param Wilburn MD - Last Filed: 10/11/22 23:01> Ears: external ears normal <Param Wilburn MD - Last Filed: 10/11/22 23:01> General nose exam: Normal external nose present <Param Wilburn MD - Last Filed: 10/11/22 23:01> Face and sinus: Yes normal facial exam <Param Wilburn MD - Last Filed: 10/11/22 23:01> Mouth: Normal oral and palatal mucosa present <Param Wilburn MD - Last Filed: 10/11/22 23:01> Throat: Yes posterior oropharynx normal <Param Wilburn MD - Last Filed: 10/11/22 23:01> Eyes General: appearance normal, both eyes and all related structures <Param Wilburn MD - Last Filed: 10/11/22 23:01> Pupils: Equal, round and reactive pupils present <Param Wilburn MD - Last Filed: 10/11/22 23:01> Neck Neck: Yes normal visual inspection, Yes no lymphadenopathy, Yes trachea midline and Yes supple <Param Wilburn MD - Last Filed: 10/11/22 23:01> Chest Chest palpation & inspection: normal inspection of the chest and normal palpation of entire chest wall <Param Wilburn MD - Last Filed: 10/11/22 23:01> Resp Effort & Inspection: normal respiratory effort and able to speak in complete sentences <Param Wilburn MD - Last Filed: 10/11/22 23:01> Auscultation: clear to auscultation bilaterally <Param Wilburn MD - Last Filed: 10/11/22 23:01> Cardio Rate: regular rate <Param Wilburn MD - Last Filed: 10/11/22 23:01> Rhythm: regular rhythm <Param Wilburn MD - Last Filed: 10/11/22 23:01> Heart sounds: S1 normal heart sound present, S2 normal heart sound present and no murmurs <Param Wilburn MD - Last Filed: 10/11/22 23:01> GI Inspection: Yes normal to inspection <Param Wilburn MD - Last Filed: 10/11/22 23:01> Palpation (GI): Soft to palpation, Tenderness to palpation present (GI) in the LLQ (Moderate), in the RLQ ([id number]) and periumbilically (Moderate) and no guarding <Param Wilburn MD - Last Filed: 10/11/22 23:01> Auscultation: normal bowel sounds <MD Sheridan Rodarte Last Filed: 10/11/22 23:01> General: Yes no CVA tenderness <MD Sheridan Rodarte Last Filed: 10/11/22 23:01> Back/Spine/Pelvis Back: no CVA tenderness <Param Wilburn MD - Last Filed: 10/11/22 23:01> Skin General skin exam: no rashes or lesions noted <Param Wilburn MD - Last Filed: 10/11/22 23:01> Neuro General: oriented to person and oriented to place <Param Wilburn MD - Last Filed: 10/11/22 23:01> Cranial nerves: Yes CN's II-XII intact bilaterally and Yes Equal, round and reactive pupils present <Param Wilburn MD - Last Filed: 10/11/22 23:01> Cognition (Neuro): normal cognition <Param Wilburn MD - Last Filed: 10/11/22 23:01> Motor exam (neuro): 5/5 motor strength present throughout <Param Wilburn MD - Last Filed: 10/11/22 23:01> Extrem General: Yes normal to inspection <Param Wilburn MD - Last Filed: 10/11/22 23:01> Psych Appearance: grossly normal <Param Wilburn MD - Last Filed: 10/11/22 23:01> Speech and movement: Normal speech and movement present <Param Wilburn MD - Last Filed: 10/11/22 23:01> Affect: normal affect <Param Wilburn MD - Last Filed: 10/11/22 23:01> Attitude: cooperative <Param Wilburn MD - Last Filed: 10/11/22 23:01> Thought process: Normal thought process present <Param Wilburn MD - Last Filed: 10/11/22 23:01> Thought content: Normal thought content present <Param Wilburn MD - Last Filed: 23:01> Course Course Course Narrative: MALLORY-15:36PM - 27yoM with a PMHx of colitis who is presenting to the ER with complaints of generalized fatigue/malaise, dizziness, lightheadedness, nausea/vomiting, left- sided abdominal pain and bloody stools with bright red blood for the past week worse today. also reports black stools. Reports that this happened in the past when he was 1st diagnosed with colitis. Pt currently on Delzicol taking as prescribed for his colitis. Was on prednisone although not currently on it. Denies any fevers, CP/SOB, dysuria or any other symptoms related to this. Plan: Labs, EKG, stool occult, CT scan abdomen pelvis ordered at this time antonina ent to be seen in the ED. <HEATH Mcmullen - Last Filed: 10/11/22 15:40> Medical Decision Making Medical Decision Making MDM Narrative: 27-year-old male with a history of also order of colitis diagnosed recently, 06/24/2022 while he was here at this facility. Patient was initially treated with prednisone and mesalamine, he stopped his prednisone 4 weeks ago but continues on mesalamine. He has followed up with GI, Dr. Teja Grant. Patient presents with 2 weeks of mucousy bloody stool, 8 stools per day, nausea vomiting x2 per day, decreased appetite, increased abdominal pain, lightheadedness, dizziness and fatigue. Vital signs were normal. Examination did reveal lower abdominal and periumbilical tenderness otherwise was unremarkable. 2222: My interpretation of patient's laboratory evaluation is as follows: WBC elevated 17,300, platelet count elevated 439,000 H&H normal 14 and 44.6. ESR was normal at 7. CT scan abdomen pelvis IV contrast is consistent with ruelas colitis most likely secondary to flare-up of his his ulcerative colitis, and infectious process also needs to be considered. 2250: I did discuss over tiger text the patient's presentation with the covering gastrologist, Dr. David Sher recommended obtaining C diff and GI panel. I also will add cultures x2, lactic acid and CRP. A operating table assembler recommended antibiotics and Solu-Medrol 20 mg every 8 hours. Patient was ordered get Levaquin 750 mg IV, metronidazole 500 mg IV and Solu-Medrol 20 mg IV. Patient was also ordered to get normal saline IV x2 L, Zofran 4 mg IV and morphine 4 mg IV for his pain. I did discuss degree tiger text, the patient's presentation with the covering hospitalist, Dr. Cortez <Param Wilburn MD - Last Filed: 10/11/22 23:01> Differential Diagnosis Differential diagnosis includes was not limited to also have ulcerative colitis, C difficile colitis, bacterial colitis, lower GI bleed, hemorrhoid bleed <Param Wilburn MD - Last Filed: 10/11/22 23:01> Consult Healthcare Provider Management of the patient was discussed with: Hospitalist and Mammal Keeper <Param Wilburn MD - Last Filed: 10/11/22 23:01> Lab Data MDM Lab Attestation statement: I reviewed the patient's lab results. <Param Wilburn MD - Last Filed: 10/11/22 23:01> Please see HANS from my discussion <Param Wilburn MD - Last Filed: 10/11/22 23:01> Result Diagrams: 10/11/22 15:58 10/11/22 15:58 <HEATH Mcmullen - Last Filed: 10/11/22 15:40> Labs: Lab Results 10/11/22 10/11/22 10/11/22 Range/Units 15:58 15:58 15:58 WBC 17.3 H (4.8-10.8) X10*3/uL RBC 5.82 H (4.60-5.80) X10*6/uL Hgb 14.6 D (14.0-18.0) g/dl Hct 44.7 (42.0-52.0) % MCV 76.8 L (80.0-98.0) fL MCH 25.1 L (27.0-33.0) pg MCHC 32.7 (31.0-36.0) g/dl RDW 17.3 H (11.0-16.0) % Plt Count 439 H D (160-400) X10*3/uL MPV 9.9 (9.4-12.4) fL Immature Gran % (Auto) 0.3 (0.0-0.4) % Neut % (Auto) 67.5 (45-73) % Lymph % (Auto) 13.3 L (20-40) % [place] % (Auto) 13.0 H (2-11) % Eos % (Auto) 5.4 H (0-4) % Baso % (Auto) 0.5 (0-2) % Lymph # (Auto) 2.3 (1.2-4.9) X10*3/uL [place] # (Auto) 2.3 H (0.1-1.2) X10*3/uL Eos # (Auto) 0.9 H (0.0-0.4) X10*3/uL Baso # (Auto) 0.1 (0.0-0.2) X10*3/uL Abs Immat Gran (auto) 0.05 H (0.00-0.03) X10*3/uL Absolute Neuts (auto) 11.7 H (2.0-8.3) x10*3/uL Absolute Nucleated RBC 0.000 (0.0-0.012) X10*3/uL Nucleated RBC % (auto) 0.0 (0.0-0.2) /100WBC ESR 7 (0-15) MM/HR PT 14.3 H (10.0-13.1) SEC INR 1.2 H (0.9-1.1) Sodium (135-145) mmol/L Potassium (3.3-5.1) mmol/L Chloride (96-108) mmol/L Carbon Dioxide (22-29) mmol/L Anion Gap (12-20) BUN (9-16) mg/dL Creatinine (0.5-1.4) mg/dL Estim Creat Clear Calc Estimated GFR Random Glucose (60-115) mg/dL Calcium (8.4-10.2) mg/dL Magnesium (1.6-2.6) mg/dL Total Bilirubin (0.0-1.0) mg/dL AST (5-37) U/L ALT (0-40) U/L Alkaline Phosphatase (39-117) U/L Total Creatine Kinase (38-174) U/L Total Protein (6.5-8.0) g/dL Albumin (3.5-5.0) g/dL Lipase (8-78) U/L Influenza Type A (PCR) (Negative) Influenza Type B (PCR) (Negative) RSV RNA Qual (PCR) (Negative) SARS-CoV-2 RNA (RT-PCR) (Negative) 10/11/22 10/11/22 Range/Units 15:58 15:58 WBC (4.8-10.8) X10*3/uL RBC (4.60-5.80) X10*6/uL Hgb (14.0-18.0) g/dl Hct (42.0-52.0) % MCV (80.0-98.0) fL MCH (27.0-33.0) pg MCHC (31.0-36.0) g/dl RDW (11.0-16.0) % Plt Count (160-400) X10*3/uL MPV (9.4-12.4) fL Immature Gran % (Auto) (0.0-0.4) % Neut % (Auto) (45-73) % Lymph % (Auto) (20-40) % [place] % (Auto) (2-11) % Eos % (Auto) (0-4) % Baso % (Auto) (0-2) % Lymph # (Auto) (1.2-4.9) X10*3/uL [place] # (Auto) (0.1-1.2) X10*3/uL Eos # (Auto) (0.0-0.4) X10*3/uL Baso # (Auto) (0.0-0.2) X10*3/uL Abs Immat Gran (auto) (0.00-0.03) X10*3/uL Absolute Neuts (auto) (2.0-8.3) x10*3/uL Absolute Nucleated RBC (0.0-0.012) X10*3/uL Nucleated RBC % (auto) (0.0-0.2) /100WBC ESR (0-15) MM/HR PT (10.0-13.1) SEC INR (0.9-1.1) Sodium 135 (135-145) mmol/L Potassium 3.9 (3.3-5.1) mmol/L Chloride 98 (96-108) mmol/L Carbon Dioxide 25 (22-29) mmol/L Anion Gap 16 (12-20) BUN 4 L (9-16) mg/dL Creatinine 0.81 (0.5-1.4) mg/dL Estim Creat Clear Calc 184.3 Estimated GFR > 60 Random Glucose 107 (60-115) mg/dL Calcium 9.1 D (8.4-10.2) mg/dL Magnesium 2.1 (1.6-2.6) mg/dL Total Bilirubin 0.4 (0.0-1.0) mg/dL AST 12 (5-37) U/L ALT 11 (0-40) U/L Alkaline Phosphatase 85 (39-117) U/L Total Creatine Kinase 54 (38-174) U/L Total Protein 7.0 (6.5-8.0) g/dL Albumin 4.0 (3.5-5.0) g/dL Lipase 49 (8-78) U/L Influenza Type A (PCR) NEGATIVE (Negative) Influenza Type B (PCR) NEGATIVE (Negative) RSV RNA Qual (PCR) NEGATIVE (Negative) SARS-CoV-2 RNA (RT-PCR) NEGATIVE (Negative) <HEATH Mcmullen - Last Filed: 10/11/22 15:40> Lab Results 10/11/22 10/11/22 10/11/22 Range/Units 15:58 15:58 15:58 WBC 17.3 H (4.8-10.8) X10*3/uL RBC 5.82 H (4.60-5.80) X10*6/uL Hgb 14.6 D (14.0-18.0) g/dl Hct 44.7 (42.0-52.0) % MCV 76.8 L (80.0-98.0) fL MCH 25.1 L (27.0-33.0) pg MCHC 32.7 (31.0-36.0) g/dl RDW 17.3 H (11.0-16.0) % Plt Count 439 H D (160-400) X10*3/uL MPV 9.9 (9.4-12.4) fL Immature Gran % (Auto) 0.3 (0.0-0.4) % Neut % (Auto) 67.5 (45-73) % Lymph % (Auto) 13.3 L (20-40) % [place] % (Auto) 13.0 H (2-11) % Eos % (Auto) 5.4 H (0-4) % Baso % (Auto) 0.5 (0-2) % Lymph # (Auto) 2.3 (1.2-4.9) X10*3/uL [place] # (Auto) 2.3 H (0.1-1.2) X10*3/uL Eos # (Auto) 0.9 H (0.0-0.4) X10*3/uL Baso # (Auto) 0.1 (0.0-0.2) X10*3/uL Abs Immat Gran (auto) 0.05 H (0.00-0.03) X10*3/uL Absolute Neuts (auto) 11.7 H (2.0-8.3) x10*3/uL Absolute Nucleated RBC 0.000 (0.0-0.012) X10*3/uL Nucleated RBC % (auto) 0.0 (0.0-0.2) /100WBC ESR 7 (0-15) MM/HR PT 14.3 H (10.0-13.1) SEC INR 1.2 H (0.9-1.1) Sodium (135-145) mmol/L Potassium (3.3-5.1) mmol/L Chloride (96-108) mmol/L Carbon Dioxide (22-29) mmol/L Anion Gap (12-20) BUN (9-16) mg/dL Creatinine (0.5-1.4) mg/dL Estim Creat Clear Calc Estimated GFR Random Glucose (60-115) mg/dL Calcium (8.4-10.2) mg/dL Magnesium (1.6-2.6) mg/dL Total Bilirubin (0.0-1.0) mg/dL AST (5-37) U/L ALT (0-40) U/L Alkaline Phosphatase (39-117) U/L Total Creatine Kinase (38-174) U/L Total Protein (6.5-8.0) g/dL Albumin (3.5-5.0) g/dL Lipase (8-78) U/L Influenza Type A (PCR) (Negative) Influenza Type B (PCR) (Negative) RSV RNA Qual (PCR) (Negative) SARS-CoV-2 RNA (RT-PCR) (Negative) 10/11/22 10/11/22 Range/Units 15:58 15:58 WBC (4.8-10.8) X10*3/uL RBC (4.60-5.80) X10*6/uL Hgb (14.0-18.0) g/dl Hct (42.0-52.0) % MCV (80.0-98.0) fL MCH (27.0-33.0) pg MCHC (31.0-36.0) g/dl RDW (11.0-16.0) % Plt Count (160-400) X10*3/uL MPV (9.4-12.4) fL Immature Gran % (Auto) (0.0-0.4) % Neut % (Auto) (45-73) % Lymph % (Auto) (20-40) % [place] % (Auto) (2-11) % Eos % (Auto) (0-4) % Baso % (Auto) (0-2) % Lymph # (Auto) (1.2-4.9) X10*3/uL [place] # (Auto) (0.1-1.2) X10*3/uL Eos # (Auto) (0.0-0.4) X10*3/uL Baso # (Auto) (0.0-0.2) X10*3/uL Abs Immat Gran (auto) (0.00-0.03) X10*3/uL Absolute Neuts (auto) (2.0-8.3) x10*3/uL Absolute Nucleated RBC (0.0-0.012) X10*3/uL Nucleated RBC % (auto) (0.0-0.2) /100WBC ESR (0-15) MM/HR PT (10.0-13.1) SEC INR (0.9-1.1) Sodium 135 (135-145) mmol/L Potassium 3.9 (3.3-5.1) mmol/L Chloride 98 (96-108) mmol/L Carbon Dioxide 25 (22-29) mmol/L Anion Gap 16 (12-20) BUN 4 L (9-16) mg/dL Creatinine 0.81 (0.5-1.4) mg/dL Estim Creat Clear Calc 184.3 Estimated GFR > 60 Random Glucose 107 (60-115) mg/dL Calcium 9.1 D (8.4-10.2) mg/dL Magnesium 2.1 (1.6-2.6) mg/dL Total Bilirubin 0.4 (0.0-1.0) mg/dL AST 12 (5-37) U/L ALT 11 (0-40) U/L Alkaline Phosphatase 85 (39-117) U/L Total Creatine Kinase 54 (38-174) U/L Total Protein 7.0 (6.5-8.0) g/dL Albumin 4.0 (3.5-5.0) g/dL Lipase 49 (8-78) U/L Influenza Type A (PCR) NEGATIVE (Negative) Influenza Type B (PCR) NEGATIVE (Negative) RSV RNA Qual (PCR) NEGATIVE (Negative) SARS-CoV-2 RNA (RT-PCR) NEGATIVE (Negative) <Param Wilburn MD - Last Filed: 10/11/22 23:01> Radiology Impression Discussion of test interpretation with radiology: I have reviewed the radiologist's reading. <Param Wilburn MD - Last Filed: 10/11/22 23:01> Radiologist Impression: CT abdomen pelvis w IV con GASTROINTESTINAL TRACT: Again seen is mural/mucosal thickening of the colon involving the entire colon at this time. At the time of the prior study, similar findings were present but the transverse colon and ascending colon were not involved. No pneumatosis. No evidence of obstruction. The small bowel appears normal. The stomach is unremarkable. The appendix is normal. ABDOMINAL WALL: No significant hernia is appreciated. LYMPH NODES: Normal. VASCULAR: Unremarkable. PELVIC VISCERA: The prostate and seminal vesicles are unremarkable. No free intraperitoneal fluid is seen. OSSEOUS STRUCTURES: Unremarkable. A bone island is present just above the left acetabulum. CT/CT abdomen pelvis w IV con IMPRESSION: 1. Pancolitis. Similar findings were present on the prior study but the ascending colon and transverse colon were not involved. 2. Incidental note made of mild hepatomegaly. Fleischner guidelines were followed. Dictated By:Vikram Thompsonigned By:<Electronically signed by Vikram Thompson MD in [place]>[id number]/11/[id number] <aPram Wilburn MD - Last Filed: 10/11/22 23:01> Independent Historian Clinical information obtained from an independent historian. History obtained from or confirmed by: Parent (Patient's father) <Param Wilburn MD - Last Filed: 10/11/22 23:01> External Record Review External record reviewed: Inpatient record and Office record <Param Wilburn MD - Last Filed: 10/11/22 23:01> Medications Administered Generic Name Dose Route Start Last Admin Trade Name Freq PRN Reason Stop Dose Admin Lactated Ringer's 1,000 mls @ 999 mls/hr 10/11/22 22:15 10/11/22 22:32 Lr IV 10/11/22 23:15 999 mls/hr .Q1H1M INES Administration Discontinued Medications Generic Name Dose Route Start Last Admin Trade Name Freq PRN Reason Stop Dose Admin Iohexol 100 ml 10/11/22 20:55 10/11/22 20:55 Iohexol 350 Mg/Ml 100 Ml Infus..Btl IV 10/11/22 20:56 85 ml ONCE ONE Administration Ondansetron HCl 4 mg 10/11/22 22:13 10/11/22 22:32 Ondansetron Hcl 4 Mg/2 Ml Vial IVPUSH 10/11/22 22:14 4 mg ONCE ONE Administration <HEATH Mcmullen - Last Filed: 10/11/22 15:40> Medications Administered Generic Name Dose Route Start Last Admin Trade Name Freq PRN Reason Stop Dose Admin Lactated Ringer's 1,000 mls @ 999 mls/hr 10/11/22 22:15 10/11/22 22:32 Lr IV 10/11/22 23:15 999 mls/hr .Q1H1M INES Administration Discontinued Medications Generic Name Dose Route Start Last Admin Trade Name Freq PRN Reason Stop Dose Admin Iohexol 100 ml 10/11/22 20:55 10/11/22 20:55 Iohexol 350 Mg/Ml 100 Ml Infus..Btl IV 10/11/22 20:56 85 ml ONCE ONE Administration Ondansetron HCl 4 mg 10/11/22 22:13 10/11/22 22:32 Ondansetron Hcl 4 Mg/2 Ml Vial IVPUSH 10/11/22 22:14 4 mg ONCE ONE Administration <Param Wilburn MD - Last Filed: 10/11/22 23:01> Discharge Plan Discharge Clinical Impression: Hematochezia Ulcerative colitis Qualifiers: Ulcerative colitis location: ulcerative pancolitis Digestive disease complication type: with rectal bleeding Qualified Code(s): K51.011 - Ulcerative (chronic) pancolitis with rectal bleeding Abdominal pain Qualifiers: Abdominal location: generalized Qualified Code(s): R10.84 - Generalized abdominal pain <HEATH Mcmullen - Last Filed: 10/11/22 15:40> Prescriptions: No Action mesalamine [Delzicol] 400 mg Capsule (With Del Rel Tablets) 800 mg PO TID Qty: 180 0RF prednisone 20 mg tablet 40 mg PO DAILY Qty: 60 0RF Rx Instructions: 40mg daily for 1 week, wean by 5mg/day per week for 8 weeks total <HEATH Mcmullen - Last Filed: 10/11/22 15:40>
[2022-10-11 16:12] LABS: MANUAL DIFF FLAG NO
[2022-10-11 16:14] LABS: Basophils Absolute Auto 0.1 X10*3/uL (0.0-0.2); Basophils Percent Auto 0.5 % (0-2); Eosinophils Absolute Auto 0.9 X10*3/uL (0.0-0.4); Eosinophils Percent Auto 5.4 % (0-4); Hematocrit 44.7 % (42.0-52.0); Hemoglobin 14.6 g/dl (14.0-18.0); Imm Gran Abs Auto 0.05 X10*3/uL (0.00-0.03); Imm Gran Pct Auto 0.3 % (0.0-0.4); Lymphocytes Absolute Auto 2.3 X10*3/uL (1.2-4.9); Lymphocytes Percent Auto 13.3 % (20-40); Mean Corpuscular HGB Conc 32.7 g/dl (31.0-36.0); Mean Corpuscular Hemoglobin 25.1 pg (27.0-33.0); Mean Corpuscular Volume 76.8 fL (80.0-98.0); Mean Platelet Volume 9.9 fL (9.4-12.4); Monocytes Absolute Auto 2.3 X10*3/uL (0.1-1.2); Neutrophils Absolute Auto 11.7 x10*3/uL (2.0-8.3); Neutrophils Percent Auto 67.5 % (45-73); Platelet Count 439 X10*3/uL (160-400); Red Blood Count 5.82 X10*6/uL (4.60-5.80); Red Cell Distribution Width 17.3 % (11.0-16.0); SCAN SMEAR FLAG 1; White Blood Count 17.3 X10*3/uL (4.8-10.8)
[2022-10-11 16:19] LABS: INTERNATIONAL NORM RATIO 1.2 (0.9-1.1); Prothrombin Time 14.3 SEC (10.0-13.1)
[2022-10-11 16:44] LABS: Alanine Aminotransferase 11 U/L (0-40); Alkaline Phosphatase 85 U/L (39-117); Anion Gap 16 (12-20); Aspartate Amino Transferase 12 U/L (5-37); Bilirubin Total 0.4 mg/dL (0.0-1.0); Blood Urea Nitrogen 4 mg/dL (9-16); Calcium 9.1 mg/dL (8.4-10.2); Carbon Dioxide 25 mmol/L (22-29); Chloride 98 mmol/L (96-108); Creatinine Clr Calc Pharmacy 184.3; Estimated Glomerular Filt Rate > 60; Glucose Random 107 mg/dL (60-115); Lipase 49 U/L (8-78); Magnesium 2.1 mg/dL (1.6-2.6); Potassium 3.9 mmol/L (3.3-5.1); Sodium 135 mmol/L (135-145)
[2022-10-11 16:52] LABS: Influenza A PCR NEGATIVE (Negative); Influenza B PCR NEGATIVE (Negative); Resp Syncy Virus RNA Qual PCR NEGATIVE (Negative); SARS COV2 PCR INHOUSE NEGATIVE (Negative)
[2022-10-11 16:57] LABS: Erythrocyte Sedimentation Rate 7 MM/HR (0-15)
[2022-10-11 20:36] VITALS: BP 122/75; PULSE 80; RESP 18; TEMP 36.7; O2SAT 97
--- NOTE | 2022-10-11 20:52 | PC.NURSE ---
this rn placed 20 g IV L AC prior to CT w IV contrast. pt tolerated well. pt attempting to provide urine sample. pt father at bedside at this time
[2022-10-11] MEDS: iohexoL 350 MG/ML 100 ML INFUS..BTL IV (20:55)
[2022-10-11 22:32] VITALS: BP 122/67; PULSE 83; RESP 16; TEMP 39.2; O2SAT 97
[2022-10-11] MEDS: ondansetron HCL 4 MG/2 ML VIAL IVPUSH (22:32)
[2022-10-11] MEDS: Lactated Ringers 1,000 ML 999 ML IV (22:32)
--- NOTE | 2022-10-11 23:01 | PM.IMHP ---
History of Present Illness Date of Service: 10/11/22 Chief Complaint: Abdominal Pain This is a 27-year-old male with pertinent history of ulcerative colitis who presents to the emergency department for evaluation of abdominal pain and GI bleed. Patient was diagnosed with ulcerative colitis in June after he underwent colonoscopy. He was initiated on mesalamine and steroids. Patient states he completed steroids a about a month ago. Approximately 2 weeks ago. Patient started having abdominal pain and multiple episodes of bloody diarrhea. Also has associated fatigue, nausea and episodes of nonbloody emesis. Patient states that his joint pain is resolved. Does endorse chills. He denies fever, chest pain, palpitations, shortness of breath, changes in urinary habits. In the emergency department, imaging with ruelas colitis. Review of Systems Constitutional: Constitutional: Reports chills, Reports fatigue, Reports lethargy and Reports malaise Cardiovascular: Cardiovascular: Reports no additional cardiovascular complaints Respiratory: Respiratory: Reports no additional respiratory complaints Gastrointestinal: Gastrointestinal: Reports abdominal pain and Reports melena Genitourinary: Genitourinary: Reports no additional male genitourinary complaints Musculoskeletal: Musculoskeletal: Reports no additional musculoskeletal complaints Endocrine: Endocrine: Reports fatigue [facility] Medical History Iron (Fe) deficiency anemia Ulcerative colitis Family History Father Diabetes Social History Household Members: Family Housing: House Do you presently have visiting nurse or other home services: No Alcohol intake: never Patient Tobacco Use Status: Former Tobacco user Quit Date: 6 mos ago Tobacco use type: Cigarette Years Smoked: 6 e-Cigarette/Vaping Use: Never Used Second Hand Smoke Exposure: No Advance Directives: No Advance Directives Information Provided: No service: No Current occupational status: employed Meds Allergies Allergy/AdvReac Type Severity Reaction Status Date / Time No Known Allergies Allergy Unverified 04/02/20 17:05 Active Medications: Current Medications Lactated Ringer's (Lr) 1,000 mls @ 999 mls/hr IV .Q1H1M INES Stop: 10/11/22 23:15 Last Admin: 10/11/22 22:32 Dose: 999 mls/hr Levofloxacin (Levaquin) 750 mg in 150 mls @ 100 mls/hr IV ONCE ONE Stop: 10/12/22 00:14 Metronidazole (Flagyl) 500 mg in 100 mls @ 100 mls/hr IV ONCE ONE Stop: 10/11/22 23:44 Lactated Ringer's (Lr) 1,000 mls @ 999 mls/hr IV .Q1H1M INES Stop: 10/12/22 00:00 Physical Exam Vital Signs and Narrative: Vital Signs: Last Vital Signs Temp 102.6 F H 10/11/22 22:32 Pulse 83 10/11/22 22:32 Resp 16 10/11/22 22:32 BP 122/67 10/11/22 22:32 Pulse Ox 97 10/11/22 22:32 O2 Del Method Room Air 10/11/22 22:32 BMI result Body Mass Index 39.0 Middle-aged male lying in bed in no distress Neck supple, no JVD Regular rate and rhythm, S1-S2 heard Regular breath sounds bilaterally, no wheezing or crackles appreciated Abdomen with generalized tenderness, no guarding, no rigidity, no rebound tenderness Patient is awake, alert and oriented to self, place, time and person ; no focal motor deficit Psych: Normal mood No pedal edema Results Labs 10/11/22 15:58 10/11/22 15:58 Labs: Laboratory Results - last 24 hr 10/11/22 10/11/22 10/11/22 15:58 15:58 15:58 MCV 76.8 L MCH 25.1 L MCHC 32.7 RDW 17.3 H Plt Count 439 H D MPV 9.9 Immature Gran % (Auto) 0.3 Neut % (Auto) 67.5 Lymph % (Auto) 13.3 L [place] % (Auto) 13.0 H Eos % (Auto) 5.4 H Baso % (Auto) 0.5 Lymph # (Auto) 2.3 [place] # (Auto) 2.3 H Eos # (Auto) 0.9 H Baso # (Auto) 0.1 Abs Immat Gran (auto) 0.05 H Absolute Neuts (auto) 11.7 H Absolute Nucleated RBC 0.000 Nucleated RBC % (auto) 0.0 ESR 7 PT 14.3 H INR 1.2 H Anion Gap Estim Creat Clear Calc Estimated GFR Random Glucose Calcium Magnesium Total Bilirubin AST ALT Alkaline Phosphatase Total Creatine Kinase Total Protein Albumin Lipase Influenza Type A (PCR) Influenza Type B (PCR) RSV RNA Qual (PCR) SARS-CoV-2 RNA (RT-PCR) 10/11/22 10/11/22 15:58 15:58 MCV MCH MCHC RDW Plt Count MPV Immature Gran % (Auto) Neut % (Auto) Lymph % (Auto) [place] % (Auto) Eos % (Auto) Baso % (Auto) Lymph # (Auto) [place] # (Auto) Eos # (Auto) Baso # (Auto) Abs Immat Gran (auto) Absolute Neuts (auto) Absolute Nucleated RBC Nucleated RBC % (auto) ESR PT INR Anion Gap 16 Estim Creat Clear Calc 184.3 Estimated GFR > 60 Random Glucose 107 Calcium 9.1 D Magnesium 2.1 Total Bilirubin 0.4 AST 12 ALT 11 Alkaline Phosphatase 85 Total Creatine Kinase 54 Total Protein 7.0 Albumin 4.0 Lipase 49 Influenza Type A (PCR) NEGATIVE Influenza Type B (PCR) NEGATIVE RSV RNA Qual (PCR) NEGATIVE SARS-CoV-2 RNA (RT-PCR) NEGATIVE Imaging Radiologist's Impressions: Impressions Abdomen/Pelvis CT 10/11/22 21:00 IMPRESSION: 1. Pancolitis. Similar findings were present on the prior study but the ascending colon and transverse colon were not involved. 2. Incidental note made of mild hepatomegaly. Fleischner guidelines were followed. Assessment and Plan (1) Abdominal pain: Qualifiers: Abdominal location: generalized Qualified Code(s): R10.84 - Generalized abdominal pain Status: Acute (2) Hematochezia: Status: Acute (3) Ulcerative colitis: Qualifiers: Digestive disease complication type: with rectal bleeding Ulcerative colitis location: ulcerative pancolitis Qualified Code(s): K51.011 - Ulcerative (chronic) pancolitis with rectal bleeding Status: Acute Plan This is a 27-year-old male with pertinent history of ulcerative colitis who presents to the emergency department for evaluation of abdominal pain and GI bleed. #. Sepsis due to moderate to severe ulcerative colitis: Initiating empiric IV antibiotics. Also initiated IV steroids. GI panel and C diff pending. GI consulted from the ER, appreciate assistance. Resuscitated with IV crystalloids. Will keep NPO until GI evaluation. Blood cultures obtained. #. Microcytosis: Obtaining iron panel DVT prophylaxis: Mechanical Full code NPO Admit as inpatient and will require two night minimum hospital stay for management of colitis and GI bleed. Specialist consult pending Time Spent With Patient Time: Total time managing care of this patient today ____ minutes. Quality Stroke Does the patient have a stroke diagnosis?: No VTE Prior VTE?: No VTE Risk Level:: Medical - moderate - high VTE Device Contraindication: N/A - Device Ordered VTE Drug Contraindication: Treatment Not Indicated
[2022-10-11 23:17] LABS: Lactic Acid 0.7 mmol/L (0.5-2.0)
[2022-10-11] MEDS: methylPREDNISolone Sod Succ 40 MG/ML VIAL 20 MG IVPUSH (23:27)
[2022-10-11] MEDS: levoFLOXacin/D5W 750 MG/150 ML PIGGYBACK 100 MG IV (23:30)
[2022-10-11 23:34] VITALS: BP 116/67; PULSE 72; RESP 17; TEMP 36.7; O2SAT 96
[2022-10-12 00:15] LABS: Appearance Urine Clear; Color Urine Yellow; Glucose Urine UA Negative (Negative); Leukocyte Esterase Urine Negative (Negative); Nitrite Urine Negative (Negative); Specific Gravity - Urine >= 1.030 (1.005-1.025); Urine Blood Negative (Negative); Urine Ketones 80 mg/dL (Negative); Urine Protein Trace mg/dL (Neg-Trace)
[2022-10-12] MEDS: Lactated Ringers 1,000 ML 999 ML IV (00:36)
[2022-10-12] MEDS: metroNIDAZOLE/NS 500 MG/100 ML PIGGYBACK 100 MG IV ×2 (01:00→09:27)
[2022-10-12 01:18] LABS: Iron 16 mcg/dL (45-160); Percent Iron Saturation 6 % (15-50); Total Iron Binding Capacity 290 mcg/dL (228-428); Unsaturated Iron Binding 274 ug/dL
[2022-10-12] MEDS: Morphine Sulfate 4 MG/ML CARTRIDGE IVPUSH (01:19)
--- NOTE | 2022-10-12 02:09 | PC.NURSE ---
late entry- blood cultures obtained and sent down to lab. pt medicated according to sep. pt resting on stretcher at this time. pt calm and cooperative.
[2022-10-12 02:32] LABS: OBS Int Ctl Valid YES; OBS1 POSITIVE (NEGATIVE)
--- NOTE | 2022-10-12 02:52 | PC.NURSE ---
med rec completed. verified by pt
[2022-10-12 03:12] LABS: CDiff Gene PCR NEGATIVE (Negative)
[2022-10-12 05:23] VITALS: BP 123/56; PULSE 71; RESP 16; TEMP 36.6; O2SAT 95
[2022-10-12 06:02] LABS: MANUAL DIFF FLAG NO
[2022-10-12 06:19] LABS: Anion Gap 16 (12-20); Blood Urea Nitrogen 4 mg/dL (9-16); Calcium 8.9 mg/dL (8.4-10.2); Carbon Dioxide 24 mmol/L (22-29); Chloride 102 mmol/L (96-108); Creatinine Clr Calc Pharmacy 219.5; Estimated Glomerular Filt Rate > 60; Glucose Random 104 mg/dL (60-115); Potassium 4.5 mmol/L (3.3-5.1); Sodium 137 mmol/L (135-145)
[2022-10-12 06:24] LABS: Basophils Percent Auto 0.2 % (0-2); Eosinophils Percent Auto 0.1 % (0-4); Hematocrit 41.6 % (42.0-52.0); Hemoglobin 13.6 g/dl (14.0-18.0); Imm Gran Abs Auto 0.09 X10*3/uL (0.00-0.03); Imm Gran Pct Auto 0.5 % (0.0-0.4); Lymphocytes Absolute Auto 0.9 X10*3/uL (1.2-4.9); Lymphocytes Percent Auto 5.4 % (20-40); Mean Corpuscular HGB Conc 32.7 g/dl (31.0-36.0); Mean Corpuscular Hemoglobin 25.2 pg (27.0-33.0); Mean Corpuscular Volume 77.2 fL (80.0-98.0); Mean Platelet Volume 9.9 fL (9.4-12.4); Monocytes Absolute Auto 1.5 X10*3/uL (0.1-1.2); Monocytes Percent Auto 8.8 % (2-11); Neutrophils Absolute Auto 14.2 x10*3/uL (2.0-8.3); Platelet Count 412 X10*3/uL (160-400); Red Blood Count 5.39 X10*6/uL (4.60-5.80); Red Cell Distribution Width 17.1 % (11.0-16.0); White Blood Count 16.7 X10*3/uL (4.8-10.8)
[2022-10-12] MEDS: methylPREDNISolone Sod Succ 40 MG/ML VIAL 20 MG IVPUSH (06:33)
--- NOTE | 2022-10-12 07:04 | PHA.MEDREC ---
Pharmacy Consult ? Medication Reconciliation Pharmacy has reviewed the medication reconciliation completed by Avis. There are no remarkable issues for provider's attention. Yadira Crenshaw, EmmanuelD
--- NOTE | 2022-10-12 07:15 | PC.NURSE ---
this rn attempted multiple times to speak with pharmacy regarding medication that was flagging in tracker but was not in mar. per pharmacy medications were retimed according to ordered frequency. at this time medications were still flagging as late and not given in track. this rn contacted pharmacy this morning.per pharmacy medication d/c'd and retimed. no longer flagging in tracker or mar
[2022-10-12 07:33] VITALS: BP 129/62; PULSE 66; RESP 13; TEMP 36.9; O2SAT 98
[2022-10-12] MEDS: 0.9 % Sodium Chloride Flush 3 ML SYRINGE IVFLUSH (09:28)
--- NOTE | 2022-10-12 10:41 | PC.NURSE ---
pt states he has no pain, nad, skin wpd, resting w eyes closed all morning, states he hasn't slept well due to trouble sleeping in new places , lab called and they were unable to do the GI panel test and needed it re ordered and re collected, pt aware
[2022-10-12 11:27] VITALS: BP 149/83; PULSE 80; RESP 18; TEMP 36.7; O2SAT 98
--- NOTE | 2022-10-12 11:36 | PC.NURSE ---
Pt a&ox4, resting quietly. While obtaining vitals, pt reports that he has a sudden onset of nausea, and he needs to have a bowel movement. Pt assisted to bathroom,hat placed on toilet, and will collect stool sample.
--- NOTE | 2022-10-12 11:57 | PC.NURSE ---
Pt stool sample collected, stool liquid and bloody.
--- NOTE | 2022-10-12 12:19 | PC.NURSE ---
Pt now on clr liq diet. Pt requests ice chips and ice water, pt given both. Pt reports nausea and would like some antinausea medication.
--- NOTE | 2022-10-12 12:21 | PM.EVENT ---
Event Note Date of Service: 10/12/22 Event Note: GI Consult-Full note dictated Imp: Flare of ulcerative colitis after being off prednisone for approx 2-3 weeks. Appears symptomatic but stable. Abdominal exam is benign. Rec: IV steroids for at least another 24 hours, increase mesalamine, D/C antibiotics, check stools, and start clear liquids. Once stable then change to prednisone po. I will check a Hepatitis B and TB test in the event he needs a biologic agent going forward. D/W patient. Thanks Time Spent With Patient Time: Total time managing care of this patient today ____ minutes.
[2022-10-12] MEDS: Lactated Ringers 1,000 ML 100 ML IVCONT ×2 (12:42→22:33)
--- NOTE | 2022-10-12 12:43 | HO.PM.IMPN ---
Subjective Subjective Date of Service: 10/12/22 Interval History: hematochezia Physical Exam Vital Signs: Vital Signs: Last Vital Signs Temp 98.0 F 10/12/22 11:27 Pulse 80 10/12/22 11:27 Resp 18 10/12/22 11:27 BP 149/83 H 10/12/22 11:27 Pulse Ox 98 10/12/22 11:27 O2 Del Method Room Air 10/12/22 11:27 BMI result Body Mass Index 39.0 General: AO X 3, no acute distress Resp: CTA bilateral, no accessory muscles used CVS: S1,S2,RRR GI: soft, non tender, non distended Neuro: motor grossly intact, alert Psych: appropriate affect, appropriate insight Objective Data Active Medications Acetaminophen (Acetaminophen 325 Mg Tablet) 650 mg PO Q6H PRN PRN Reason: Pain, Mild (Pain Scale 1-3) Acetaminophen (Acetaminophen Supp 650 Mg Supp.Rect) 650 mg VT Q6H PRN PRN Reason: Pain, Mild (Pain Scale 1-3) Lactated Ringer's (Lr) 1,000 mls @ 100 mls/hr IVCONT .Q10H INES Melatonin (Melatonin 3 Mg Tablet) 6 mg PO BEDTIME PRN PRN Reason: Insomnia Mesalamine (Mesalamine 400 Mg Cap.Drtab.) 1,200 mg PO TID INES Methylprednisolone Sodium Succinate (Methylprednisolone Sod Succ 40 Mg/Ml Vial) 60 mg IVPUSH Q6H INES Morphine Sulfate (Morphine Sulfate 4 Mg/Ml Cartridge) 4 mg IVPUSH Q4H PRN; Protocol PRN Reason: Pain, Severe (Pain Scale 7-10) Last Admin: 10/12/22 01:19 Dose: 4 mg Documented By: JUAQUIN Ondansetron HCl (Ondansetron Hcl 4 Mg/2 Ml Vial) 4 mg IVPUSH Q8H PRN PRN Reason: Nausea and Vomiting Pharmacy Consult (Consult Rx Perform Med Rec) 1 each MISCELLANE ONCE PRN PRN Reason: Consult order Sodium Chloride (0.9 % Sodium Chloride Flush 3 Ml Syringe) [facility] Last Admin: 10/12/22 09:28 Dose: 3 ml Documented By: PAYAL Labs 10/12/22 05:34 10/12/22 05:34 Labs: Laboratory Results - last 24 hr 10/11/22 10/11/22 10/11/22 15:58 15:58 15:58 MCV 76.8 L MCH 25.1 L MCHC 32.7 RDW 17.3 H Plt Count 439 H D MPV 9.9 Immature Gran % (Auto) 0.3 Neut % (Auto) 67.5 Lymph % (Auto) 13.3 L [place] % (Auto) 13.0 H Eos % (Auto) 5.4 H Baso % (Auto) 0.5 Lymph # (Auto) 2.3 [place] # (Auto) 2.3 H Eos # (Auto) 0.9 H Baso # (Auto) 0.1 Abs Immat Gran (auto) 0.05 H Absolute Neuts (auto) 11.7 H Absolute Nucleated RBC 0.000 Nucleated RBC % (auto) 0.0 ESR 7 PT 14.3 H INR 1.2 H Anion Gap Estim Creat Clear Calc Estimated GFR Random Glucose Lactic Acid Calcium Magnesium Iron TIBC % Saturation Unsat Iron Binding Total Bilirubin AST ALT Alkaline Phosphatase Total Creatine Kinase C-Reactive Protein Total Protein Albumin Lipase Urine Color Urine Appearance Urine pH Ur Specific [place] Urine Protein Urine Glucose (UA) Urine Ketones Urine Blood Urine Nitrite Ur Leukocyte Esterase Stool Occult Blood Stl C. cayetanensis PCR Stool Rotavirus A PCR Stl Adenov F 40/41 PCR Stool Astrovirus (PCR) Stool Campylobacter PCR Stool Cryptosporidium PCR Stl Sh Tox Pr E STEC PCR Stool E coli O157 PCR Stl Enterotoxigenic E PCR Stool EPEC (PCR) Stool EAEC (PCR) Stl E. histolytica PCR Stool Giardia Lamblia PCR Stl P. shigelloides PCR Stool Salmonella PCR Stool Sapovirus (PCR) Stl Shigella/EIEC PCR St Y.enterocolitica PCR Stool Vibrio (PCR) Stl Vibrio cholerae PCR Stl Norovirus GI/GII PCR C. difficile Tox B Gene Influenza Type A (PCR) Influenza Type B (PCR) RSV RNA Qual (PCR) SARS-CoV-2 RNA (RT-PCR) 10/11/22 10/11/22 10/11/22 15:58 15:58 22:56 MCV MCH MCHC RDW Plt Count MPV Immature Gran % (Auto) Neut % (Auto) Lymph % (Auto) [place] % (Auto) Eos % (Auto) Baso % (Auto) Lymph # (Auto) [place] # (Auto) Eos # (Auto) Baso # (Auto) Abs Immat Gran (auto) Absolute Neuts (auto) Absolute Nucleated RBC Nucleated RBC % (auto) ESR PT INR Anion Gap 16 Estim Creat Clear Calc 184.3 Estimated GFR > 60 Random Glucose 107 Lactic Acid Calcium 9.1 D Magnesium 2.1 Iron 16 L TIBC 290 % Saturation 6 L Unsat Iron Binding 274 Total Bilirubin 0.4 AST 12 ALT 11 Alkaline Phosphatase 85 Total Creatine Kinase 54 C-Reactive Protein 3.10 H Total Protein 7.0 Albumin 4.0 Lipase 49 Urine Color Urine Appearance Urine pH Ur Specific [place] Urine Protein Urine Glucose (UA) Urine Ketones Urine Blood Urine Nitrite Ur Leukocyte Esterase Stool Occult Blood Stl C. cayetanensis PCR Stool Rotavirus A PCR Stl Adenov F 40/41 PCR Stool Astrovirus (PCR) Stool Campylobacter PCR Stool Cryptosporidium PCR Stl Sh Tox Pr E STEC PCR Stool E coli O157 PCR Stl Enterotoxigenic E PCR Stool EPEC (PCR) Stool EAEC (PCR) Stl E. histolytica PCR Stool Giardia Lamblia PCR Stl P. shigelloides PCR Stool Salmonella PCR Stool Sapovirus (PCR) Stl Shigella/EIEC PCR St Y.enterocolitica PCR Stool Vibrio (PCR) Stl Vibrio cholerae PCR Stl Norovirus GI/GII PCR C. difficile Tox B Gene Influenza Type A (PCR) NEGATIVE Influenza Type B (PCR) NEGATIVE RSV RNA Qual (PCR) NEGATIVE SARS-CoV-2 RNA (RT-PCR) NEGATIVE 10/11/22 10/12/22 10/12/22 22:57 00:09 02:19 MCV MCH MCHC RDW Plt Count MPV Immature Gran % (Auto) Neut % (Auto) Lymph % (Auto) [place] % (Auto) Eos % (Auto) Baso % (Auto) Lymph # (Auto) [place] # (Auto) Eos # (Auto) Baso # (Auto) Abs Immat Gran (auto) Absolute Neuts (auto) Absolute Nucleated RBC Nucleated RBC % (auto) ESR PT INR Anion Gap Estim Creat Clear Calc Estimated GFR Random Glucose Lactic Acid 0.7 Calcium Magnesium Iron TIBC % Saturation Unsat Iron Binding Total Bilirubin AST ALT Alkaline Phosphatase Total Creatine Kinase C-Reactive Protein Total Protein Albumin Lipase Urine Color Yellow Urine Appearance Clear Urine pH 6.0 Ur Specific [place] >= 1.030 H Urine Protein Trace Urine Glucose (UA) Negative Urine Ketones 80 Urine Blood Negative Urine Nitrite Negative Ur Leukocyte Esterase Negative Stool Occult Blood POSITIVE Stl C. cayetanensis PCR Stool Rotavirus A PCR Stl Adenov F PCR Stool Astrovirus (PCR) Stool Campylobacter PCR Stool Cryptosporidium PCR Stl Sh Tox Pr E STEC PCR Stool E coli O157 PCR Stl Enterotoxigenic E PCR Stool EPEC (PCR) Stool EAEC (PCR) Stl E. histolytica PCR Stool Giardia Lamblia PCR Stl P. shigelloides PCR Stool Salmonella PCR Stool Sapovirus (PCR) Stl Shigella/EIEC PCR St Y.enterocolitica PCR Stool Vibrio (PCR) Stl Vibrio cholerae PCR Stl Norovirus GI/GII PCR C. difficile Tox B Gene Influenza Type A (PCR) Influenza Type B (PCR) RSV RNA Qual (PCR) SARS-CoV-2 RNA (RT-PCR) 10/12/22 10/12/22 10/12/22 02:19 02:19 05:34 MCV 77.2 L MCH 25.2 L MCHC 32.7 RDW 17.1 H Plt Count 412 H MPV 9.9 Immature Gran % (Auto) 0.5 H Neut % (Auto) 85.0 H Lymph % (Auto) 5.4 L [place] % (Auto) 8.8 Eos % (Auto) 0.1 Baso % (Auto) 0.2 Lymph # (Auto) 0.9 L [place] # (Auto) 1.5 H Eos # (Auto) 0.0 Baso # (Auto) 0.0 Abs Immat Gran (auto) 0.09 H Absolute Neuts (auto) 14.2 H Absolute Nucleated RBC 0.000 Nucleated RBC % (auto) 0.0 ESR PT INR Anion Gap Estim Creat Clear Calc Estimated GFR Random Glucose Lactic Acid Calcium Magnesium Iron TIBC % Saturation Unsat Iron Binding Total Bilirubin AST ALT Alkaline Phosphatase Total Creatine Kinase C-Reactive Protein Total Protein Albumin Lipase Urine Color Urine Appearance Urine pH Ur Specific [place] Urine Protein Urine Glucose (UA) Urine Ketones Urine Blood Urine Nitrite Ur Leukocyte Esterase Stool Occult Blood Stl C. cayetanensis PCR Cancelled Stool Rotavirus A PCR Cancelled Stl Adenov F PCR Cancelled Stool Astrovirus (PCR) Cancelled Stool Campylobacter PCR Cancelled Stool Cryptosporidium PCR Cancelled Stl Sh Tox Pr E STEC PCR Cancelled Stool E coli O157 PCR Cancelled Stl Enterotoxigenic E PCR Cancelled Stool EPEC (PCR) Cancelled Stool EAEC (PCR) Cancelled Stl E. histolytica PCR Cancelled Stool Giardia Lamblia PCR Cancelled Stl P. shigelloides PCR Cancelled Stool Salmonella PCR Cancelled Stool Sapovirus (PCR) Cancelled Stl Shigella/EIEC PCR Cancelled St Y.enterocolitica PCR Cancelled Stool Vibrio (PCR) Cancelled Stl Vibrio cholerae PCR Cancelled Stl Norovirus GI/GII PCR Cancelled C. difficile Tox B Gene NEGATIVE Influenza Type A (PCR) Influenza Type B (PCR) RSV RNA Qual (PCR) SARS-CoV-2 RNA (RT-PCR) 10/12/22 05:34 MCV MCH MCHC RDW Plt Count MPV Immature Gran % (Auto) Neut % (Auto) Lymph % (Auto) [place] % (Auto) Eos % (Auto) Baso % (Auto) Lymph # (Auto) [place] # (Auto) Eos # (Auto) Baso # (Auto) Abs Immat Gran (auto) Absolute Neuts (auto) Absolute Nucleated RBC Nucleated RBC % (auto) ESR PT INR Anion Gap 16 Estim Creat Clear Calc 219.5 Estimated GFR > 60 Random Glucose 104 Lactic Acid Calcium 8.9 Magnesium Iron TIBC % Saturation Unsat Iron Binding Total Bilirubin AST ALT Alkaline Phosphatase Total Creatine Kinase C-Reactive Protein Total Protein Albumin Lipase Urine Color Urine Appearance Urine pH Ur Specific [place] Urine Protein Urine Glucose (UA) Urine Ketones Urine Blood Urine Nitrite Ur Leukocyte Esterase Stool Occult Blood Stl C. cayetanensis PCR Stool Rotavirus A PCR Stl Adenov F 40/41 PCR Stool Astrovirus (PCR) Stool Campylobacter PCR Stool Cryptosporidium PCR Stl Sh Tox Pr E STEC PCR Stool E coli O157 PCR Stl Enterotoxigenic E PCR Stool EPEC (PCR) Stool EAEC (PCR) Stl E. histolytica PCR Stool Giardia Lamblia PCR Stl P. shigelloides PCR Stool Salmonella PCR Stool Sapovirus (PCR) Stl Shigella/EIEC PCR St Y.enterocolitica PCR Stool Vibrio (PCR) Stl Vibrio cholerae PCR Stl Norovirus GI/GII PCR C. difficile Tox B Gene Influenza Type A (PCR) Influenza Type B (PCR) RSV RNA Qual (PCR) SARS-CoV-2 RNA (RT-PCR) Assessment and Plan (1) Hematochezia: Status: Acute Plan 27M PMH UC presented with abd pain and hematochezia acute flare of ulcerative colitis dc abx, increaesd steroids, increased mesalamine, IV fluids, pain control, advance to clears gi following chronic iron deficiency anemia due to above DVT prophylaxis:? Mechanical Full code reason for continued hospitalization:active bleeding/pain Time Spent With Patient Time: Total time managing care of this patient today ____ minutes. Quality Stroke Does the patient have a stroke diagnosis?: No VTE Prior VTE?: No VTE Risk Level:: Medical - moderate - high VTE Device Contraindication: N/A - Device Ordered VTE Drug Contraindication: Treatment Not Indicated
[2022-10-12] MEDS: methylPREDNISolone Sod Succ 40 MG/ML VIAL 60 MG IVPUSH ×2 (12:46→19:55)
[2022-10-12] MEDS: ondansetron HCL 4 MG/2 ML VIAL IVPUSH (12:47)
--- NOTE | 2022-10-12 12:52 | PC.NURSE ---
pt a&ox3, vss, medicated per provider order, pt pending bed assignment. no new order.
[2022-10-12] MEDS: Iron Sucrose Complex 200 MG in 0.9 % Sodium Chloride 100 ML 440 MG IV (14:32)
--- NOTE | 2022-10-12 15:11 | PC.NURSE ---
Attempted to call report, RN not available.
[2022-10-12 15:18] LABS: Campylobacter Not Detected (Not Detect.); Cryptosporidium Not Detected (Not Detect.); Cyclospora cayetanensis Not Detected (Not Detect.); E. coli EAEC Not Detected (Not Detect.); E. coli EPEC Not Detected (Not Detect.); E. coli ETEC Not Detected (Not Detect.); E. coli STEC Not Detected (Not Detect.); Entamoeba histolytica Not Detected (Not Detect.); Plesiomonas shigelloides Not Detected (Not Detect.); Salmonella Not Detected (Not Detect.); Shigella sp./EIEC Not Detected (Not Detect.); Vibrio Not Detected (Not Detect.); Vibrio Cholerae Not Detected (Not Detect.); Yersinia enterocolitica Not Detected (Not Detect.)
[2022-10-12 15:19] LABS: Adenovirus F 40/41 Not Detected (Not Detect.); Astrovirus Not Detected (Not Detect.); Giardia lamblia Not Detected (Not Detect.); Norovirus GI/GII Not Detected (Not Detect.); Rotavirus A Not Detected (Not Detect.); Sapovirus Not Detected (Not Detect.)
--- NOTE | 2022-10-12 16:11 | PC.NURSE ---
RN-RN report given to [facility], pt transported by transport.
[2022-10-12 16:15] VITALS: BP 124/60; PULSE 63; RESP 20; TEMP 35.9; O2SAT 95
[2022-10-12] MEDS: Mesalamine 400 MG CAP.DRTAB. 1200 MG PO ×2 (17:14→20:48)
[2022-10-12 20:00] VITALS: BP 123/63; PULSE 67; RESP 18; TEMP 36.3; O2SAT 96
--- NOTE | 2022-10-13 00:22 | CONS_ITS ---
DATE OF SERVICE: 10/12/2022 REQUESTING PHYSICIAN: Dr. Roy. REASON FOR CONSULTATION: Ulcerative colitis, diarrhea, and hematochezia. HISTORY OF PRESENT ILLNESS: The patient is a 27-year-old male well known to me, who was diagnosed with ulcerative colitis in June when he was admitted to the hospital with diarrhea and rectal bleeding. A colonoscopy by Dr. Hong at that time revealed a normal terminal ileum, but evidence of a pancolitis consistent with ulcerative colitis. During that hospitalization, he was treated with IV steroids, but eventually converted over to p.o. prednisone and mesalamine. He was discharged and then seen in followup in the office in early July. At that point, he was still doing well on a prednisone taper and oral mesalamine. His prednisone was tapered and finished several weeks ago. However, he reports that over the past couple of weeks at least he has been having some increasing diarrhea and bleeding, which progressed and was associated with weakness. This prompted his ER visit and admission. During this time, he did have some nausea and occasional vomiting, but no signs of bleeding. He denies any associated melena with his bowel movements. He denies any abdominal pain other than some cramps. He denies any fever. He denies any recent travel, recent antibiotics, nor ill contacts. He has not been using any significant amount of NSAIDs. Since admission here, he has been on some IV steroids and antibiotics. He feels somewhat better, but he still having some bloody diarrhea. MEDICATIONS: At home include mesalamine 800 mg t.i.d. His current medications include IV flagyl, IV levofloxacin, hydrocortisone 20 mg q.8 hours, mesalamine 800 mg t.i.d., acetaminophen, morphine p.r.n., Zofran p.r.n. PAST MEDICAL HISTORY: Ulcerative colitis as above. He denies any surgeries. He denies any history of [place], diabetes, stroke, lung disease nor kidney disease. SOCIAL HISTORY: He works in a factory. He does not smoke nor, use any alcohol. He is single. FAMILY HISTORY: Negative for GI malignancy nor inflammatory bowel disease. REVIEW OF SYSTEMS: CONSTITUTIONAL: He has been feeling weak at home with some anorexia. SKIN: Without rash, no pruritus. HEENT: Negative. CARDIAC: No chest pain. PULMONARY: No coughing, no hemoptysis. GI: As above. URINARY: No dysuria, no hematuria. NEUROLOGIC: No headache or seizures. PSYCHIATRIC: Negative. PHYSICAL EXAMINATION: GENERAL: The patient is a pleasant, alert, comfortable male. SKIN: Warm and dry. NECK: Supple without lymphadenopathy. CHEST: Clear. CARDIAC: Normal S1, S2. ABDOMEN: Soft, nondistended, nontender without organomegaly or mass. Bowel sounds are normal. EXTREMITIES: Without edema. NEUROLOGIC: He is alert and oriented. LABORATORY DATA: White blood cell count 17.3 yesterday and 16.7 today. Hemoglobin 13.6 today, MCV 77. PT 14.3, INR 1.2. Normal electrolytes. BUN 4, creatinine 0.7. Iron 16, iron saturation 6%, C-reactive protein at 3.1. LFTs are normal with albumin of 4.0, lipase 49. Stool for C diff is negative. He had CT scan of the abdomen and pelvis describing a pancolitis without any signs of bowel obstruction nor free air. IMPRESSION: Patient is a 27-year-old male with flare of his ulcerative colitis, a short time after coming off prednisone. He clinically appears stable with a benign abdomen and does not appear to be toxic. At this point, I would recommend continuing steroids, but increase the Solu-Medrol. I shall also increase the mesalamine. I do not think he needs antibiotics at this time. However, we will check specimens to rule out any time of infection. I think he can be started on clear liquid diet. Once things improve and he is stable he can be changed from the IV steroids to p.o. prednisone. I will plan to increase mesalamine as outpatient from 800 mg t.i.d. to 1600 mg t.i.d. I will also check a hepatitis B profile and TB test while he is here. If he continues to have frequent relapses shortly after steroids are stopped I would plan to start him on a biologic medication. I do not think he needs any type of endoscopy or colonoscopy at this time. Thank you for the consultation. MD JUAN Lindo/ANTONINO / [phone] ANAIS
[2022-10-13] MEDS: methylPREDNISolone Sod Succ 40 MG/ML VIAL 60 MG IVPUSH ×2 (00:58→07:51)
[2022-10-13] MEDS: 0.9 % Sodium Chloride Flush 3 ML SYRINGE IVFLUSH ×2 (00:59→07:51)
[2022-10-13 03:16] VITALS: BP 117/60; PULSE 64; RESP 20; TEMP 36.6; O2SAT 96
[2022-10-13 06:11] LABS: MANUAL DIFF FLAG NO
[2022-10-13 06:16] LABS: Hematocrit 45.7 % (42.0-52.0); Mean Corpuscular HGB Conc 32.8 g/dl (31.0-36.0); Mean Corpuscular Hemoglobin 25.4 pg (27.0-33.0); Mean Corpuscular Volume 77.5 fL (80.0-98.0); Mean Platelet Volume 9.8 fL (9.4-12.4); Platelet Count 422 X10*3/uL (160-400); Red Cell Distribution Width 17.1 % (11.0-16.0); White Blood Count 17.5 X10*3/uL (4.8-10.8)
[2022-10-13 06:17] LABS: Basophils Absolute Auto 0.1 X10*3/uL (0.0-0.2); Basophils Percent Auto 0.7 % (0-2); Eosinophils Percent Auto 0.2 % (0-4); Hematocrit 45.8 % (42.0-52.0); Hemoglobin 15.1 g/dl (14.0-18.0); Imm Gran Abs Auto 0.22 X10*3/uL (0.00-0.03); Imm Gran Pct Auto 1.3 % (0.0-0.4); Lymphocytes Absolute Auto 0.8 X10*3/uL (1.2-4.9); Lymphocytes Percent Auto 4.5 % (20-40); Mean Corpuscular Hemoglobin 25.5 pg (27.0-33.0); Mean Corpuscular Volume 77.4 fL (80.0-98.0); Monocytes Absolute Auto 0.8 X10*3/uL (0.1-1.2); Monocytes Percent Auto 4.5 % (2-11); Neutrophils Absolute Auto 15.6 x10*3/uL (2.0-8.3); Neutrophils Percent Auto 88.8 % (45-73); Platelet Count 450 X10*3/uL (160-400); Red Blood Count 5.92 X10*6/uL (4.60-5.80); Red Cell Distribution Width 17.4 % (11.0-16.0); White Blood Count 17.5 X10*3/uL (4.8-10.8)
[2022-10-13 06:32] LABS: Anion Gap 18 (12-20); Blood Urea Nitrogen 4 mg/dL (9-16); Calcium 9.3 mg/dL (8.4-10.2); Carbon Dioxide 23 mmol/L (22-29); Chloride 100 mmol/L (96-108); Estimated Glomerular Filt Rate > 60; Glucose Fasting 133 mg/dL (60-99); Potassium 4.3 mmol/L (3.3-5.1); Sodium 137 mmol/L (135-145)
[2022-10-13 07:16] VITALS: BP 110/58; PULSE 71; RESP 16; TEMP 36.7; O2SAT 96
[2022-10-13] MEDS: Mesalamine 400 MG CAP.DRTAB. 1200 MG PO (07:51)
--- NOTE | 2022-10-13 08:34 | MHC.CM.PN ---
CM met with Patient at bedside. 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 Home self care is the goal and CM has initiated and will follow for dc planning. Patient has no PCP; CM to provide him with a list of area PCPs. Patient received Moderna/Covid vax x1.
[2022-10-13] MEDS: Lactated Ringers 1,000 ML 100 ML IVCONT (09:38)
--- NOTE | 2022-10-13 10:19 | PM.DS ---
DS: Providers Provider Date of Service: 10/13/22 Date of admission: 10/11/22 22:58 Primary care physician: Unknown Physician Consults: 10/11/22 22:59 Consult to Gastroenterology Stat Consulting Provider: David Thorpe Reason for consultation: Ulcerative colitis, abdominal pain , bloody diarrhea, and ruelas colitis on CT Has provider been notified: Yes DS: Diagnosis Discharge Diagnosis (1) Hematochezia: Status: Acute DS: Summary Hospital Course Hospital Course: from initial hpi: 27-year-old male with pertinent history of ulcerative colitis who presents to the emergency department for evaluation of abdominal pain and GI bleed.? Patient was diagnosed with ulcerative colitis in June after he underwent colonoscopy.? He was initiated on mesalamine and steroids.? Patient states he completed steroids a about a month ago.? Approximately 2 weeks ago.? Patient started having abdominal pain and multiple episodes of bloody diarrhea.? Also has associated fatigue, nausea and episodes of nonbloody emesis.? Patient states that his joint pain is resolved.? Does endorse chills.? He denies fever, chest pain, palpitations, shortness of breath, changes in urinary habits. In the emergency department, imaging with ruelas colitis. hospital course: Patient was admitted for acute flare of ulcerative colitis. He was treated with high-dose IV steroids, increased dose of mesalamine, IV fluids. His stools normalized without blood. Abdominal pain improved. He was advanced to solids and tolerated. He will be discharged on prednisone taper and increased dose of mesalamine and will follow up with GI as outpatient. For chronic iron deficiency anemia due to above he received 1 dose of IV iron, he should continue p.o. supplement. Time Spent with Patient Time attestation: Total time managing care of this patient today ____ minutes. Discharge coordination time: Greater than 30 minutes Quality: Safe Use of Opioids Does Pt have an Active Cancer Diagnosis on the Problem List?: No Quality: Stroke Does the patient have a stroke diagnosis?: No Physical Exam Vital Signs: Vital Signs: Last Vital Signs Temp 98.1 F 10/13/22 07:16 Pulse 71 10/13/22 07:16 Resp 16 10/13/22 07:16 BP 110/58 L 10/13/22 07:16 Pulse Ox 96 10/13/22 07:16 O2 Del Method Room Air 10/13/22 07:16 BMI result Body Mass Index 39.0 General: AO X 3, no acute distress Resp: CTA bilateral, no accessory muscles used CVS: S1,S2,RRR GI: soft, non tender, non distended Neuro: motor grossly intact, alert Psych: appropriate affect, appropriate insight DS: Data Data Completed and Pending Completed studies during hospitalization [Text1]: Procedures Excision of Ileum, Via Natural or Artificial Opening Endoscopic, Diagnostic (06/22/22) Excision of Left Large Intestine, Via Natural or Artificial Opening Endoscopic, Diagnostic (06/22/22) Excision of Right Large Intestine, Via Natural or Artificial Opening Endoscopic, Diagnostic (06/22/22) Excision of Sigmoid Colon, Via Natural or Artificial Opening Endoscopic, Diagnostic (06/22/22) Labs on day of discharge: Laboratory Results - last 24 hr 10/12/22 10/12/22 10/13/22 02:19 11:51 05:57 WBC 17.5 H RBC 5.92 H Hgb 15.1 Hct 45.8 MCV 77.4 L MCH 25.5 L MCHC 33.0 RDW 17.4 H Plt Count 450 H MPV 10.0 Immature Gran % (Auto) 1.3 H Neut % (Auto) 88.8 H Lymph % (Auto) 4.[address] [place] % (Auto) 4.5 Eos % (Auto) 0.2 Baso % (Auto) 0.7 Lymph # (Auto) 0.[address] [place] # (Auto) 0.8 Eos # (Auto) 0.0 Baso # (Auto) 0.1 Abs Immat Gran (auto) 0.22 H Absolute Neuts (auto) 15.6 H Absolute Nucleated RBC 0.000 Nucleated RBC % (auto) 0.0 Sodium Potassium Chloride Carbon Dioxide Anion Gap BUN Creatinine Estim Creat Clear Calc Estimated GFR Fasting Glucose Calcium Stl C. cayetanensis PCR Cancelled Not Detected Stool Rotavirus A PCR Cancelled Not Detected Stl Adenov F 40/41 PCR Cancelled Not Detected Stool Astrovirus (PCR) Cancelled Not Detected Stool Campylobacter PCR Cancelled Not Detected Stool Cryptosporidium PCR Cancelled Not Detected Stl Sh Tox Pr E STEC PCR Cancelled Not Detected Stool E coli O157 PCR Cancelled Not applicable Stl Enterotoxigenic E PCR Cancelled Not Detected Stool EPEC (PCR) Cancelled Not Detected Stool EAEC (PCR) Cancelled Not Detected Stl E. histolytica PCR Cancelled Not Detected Stool Giardia Lamblia PCR Cancelled Not Detected Stl P. shigelloides PCR Cancelled Not Detected Stool Salmonella PCR Cancelled Not Detected Stool Sapovirus (PCR) Cancelled Not Detected Stl Shigella/EIEC PCR Cancelled Not Detected St Y.enterocolitica PCR Cancelled Not Detected Stool Vibrio (PCR) Cancelled Not Detected Stl Vibrio cholerae PCR Cancelled Not Detected Stl Norovirus GI/GII PCR Cancelled Not Detected 10/13/22 10/13/22 05:57 05:57 WBC 17.5 H RBC 5.90 H Hgb 15.0 Hct 45.7 MCV 77.5 L MCH 25.4 L MCHC 32.8 RDW 17.1 H Plt Count 422 H MPV 9.8 Immature Gran % (Auto) Neut % (Auto) Lymph % (Auto) [place] % (Auto) Eos % (Auto) Baso % (Auto) Lymph # (Auto) [place] # (Auto) Eos # (Auto) Baso # (Auto) Abs Immat Gran (auto) Absolute Neuts (auto) Absolute Nucleated RBC 0.000 Nucleated RBC % (auto) 0.0 Sodium 137 Potassium 4.3 Chloride 100 Carbon Dioxide 23 Anion Gap 18 BUN 4 L Creatinine 0.75 Estim Creat Clear Calc 199.0 Estimated GFR > 60 Fasting Glucose 133 H Calcium 9.3 Stl C. cayetanensis PCR Stool Rotavirus A PCR Stl Adenov F 40/41 PCR Stool Astrovirus (PCR) Stool Campylobacter PCR Stool Cryptosporidium PCR Stl Sh Tox Pr E STEC PCR Stool E coli O157 PCR Stl Enterotoxigenic E PCR Stool EPEC (PCR) Stool EAEC (PCR) Stl E. histolytica PCR Stool Giardia Lamblia PCR Stl P. shigelloides PCR Stool Salmonella PCR Stool Sapovirus (PCR) Stl Shigella/EIEC PCR St Y.enterocolitica PCR Stool Vibrio (PCR) Stl Vibrio cholerae PCR Stl Norovirus GI/GII PCR Preliminary micro results at discharge 10/11/22 23:21 Blood Culture - Preliminary Blood - Venous No growth after 24 hours. 10/11/22 23:21 Blood Culture - Preliminary Blood - Venous No growth after 24 hours. Discharge Plan Discharge Anticipated Discharge Date/Time: 10/13/22 10:14 Patient Disposition: Home, Self-Care Discharge Diagnosis: UC flare Referrals: Physician,Unknown J [Primary Care Provider] - 1 Week Teja Grant [Physician] - 1 Week Discharge Medications: New mesalamine [Delzicol] 400 mg Capsule (With Del Rel Tablets) 1,200 mg PO TID Qty: 0 0RF prednisone 10 mg tablet 10 mg PO DIRECTED Qty: 1 0RF Rx Instructions: see taper instructions Discontinued mesalamine [Delzicol] 400 mg Capsule (With Del Rel Tablets) 800 mg PO TID Qty: 180 0RF Discharge Orders: Discharge Order (Routine); Ordered 10/13/22 Ordered By: Lenard Roy Diet: Advance to usual diet Activity on Discharge: As tolerated Stand Alone Forms: Patient Portal Discharge page Care Plan Goals: manage [facility] Concerns: UC flare Plan of Treatment: prednisone taper, increased mesalamine, follow up with gi Assessment: see above
--- NOTE | 2022-10-13 10:39 | MHC.CM.PN ---
Patient has been medically cleared for dc to home today, self care.
[2022-10-14 08:26] LABS: HBS Num1 1.33 mIU/mL (0-7.99); HBc Num1 0.06 S/CO (0.00-0.79); HBsAGNum1 0.29 S/CO (0.00-0.99); Hepatitis B Core Antibody Nonreactive (Nonreactive); Hepatitis B Surface Antigen Negative (Negative); ~Hepatitis B Surface Antibody NONREACTIVE (Nonreactive)
== END 2022-10-13 13:45 | disposition home or self-care (01) | DRG 245 ==
LOC: HO.ED 22:55 → HO.EDOVER 23:03 → HO.IMC 10-12 14:16
PROVIDERS: Internal Medicine; Physician Assistant Medical; Admitting Provider Student in an Organized Health Care Education/Training Program; Emergency Provider Emergency Medicine Emergency Medical Services; Visit Provider Internal Medicine
DX: K51.911 Ulcerative colitis, unspecified with rectal bleeding (principal); D50.9 Iron deficiency anemia, unspecified; Z20.822 Contact with and (suspected) exposure to COVID-19; Z87.891 Personal history of nicotine dependence; Z79.899 Other long term (current) drug therapy
CPT/HCPCS: 0241U; 36415; 74177; 80048; 80053; 81003; 82272; 82550; 83540; 83605; 83690; 83735; 85025; 85027; 85610; 85652; 86140; 86481; 86704; 86706; 87040; 87340; 87493; 87507; 99285; J1756; J1956; J2270; J2405; J2920; Q9967

== ENCOUNTER 2023-05-04 10:31 | Outpatient (REF) | payer OTHER, SELFPAY ==
[2023-05-04 11:00] LABS: MANUAL DIFF FLAG NO
[2023-05-04 11:36] LABS: Basophils Absolute Auto 0.1 X10*3/uL (0.0-0.2); Basophils Percent Auto 0.8 % (0-2); Eosinophils Absolute Auto 1.3 X10*3/uL (0.0-0.4); Eosinophils Percent Auto 12.4 % (0-4); Hematocrit 38.8 % (42.0-52.0); Hemoglobin 12.3 g/dl (14.0-18.0); Imm Gran Abs Auto 0.03 X10*3/uL (0.00-0.03); Imm Gran Pct Auto 0.3 % (0.0-0.4); Lymphocytes Percent Auto 19.3 % (20-40); Mean Corpuscular HGB Conc 31.7 g/dl (31.0-36.0); Mean Corpuscular Hemoglobin 24.5 pg (27.0-33.0); Mean Corpuscular Volume 77.3 fL (80.0-98.0); Mean Platelet Volume 9.8 fL (9.4-12.4); Monocytes Absolute Auto 1.1 X10*3/uL (0.1-1.2); Monocytes Percent Auto 10.3 % (2-11); Neutrophils Percent Auto 56.9 % (45-73); Platelet Count 466 X10*3/uL (160-400); Red Blood Count 5.02 X10*6/uL (4.60-5.80); Red Cell Distribution Width 16.4 % (11.0-16.0); White Blood Count 10.5 X10*3/uL (4.8-10.8)
[2023-05-04 12:16] LABS: Erythrocyte Sedimentation Rate 13 MM/HR (0-15)
[2023-05-04 13:46] LABS: Alanine Aminotransferase 9 U/L (0-40); Albumin Level 3.9 g/dL (3.5-5.0); Alkaline Phosphatase 73 U/L (39-117); Anion Gap 12 (12-20); Aspartate Amino Transferase 10 U/L (5-37); Bilirubin Direct 0.2 mg/dL (0.0-0.5); Bilirubin Total 0.4 mg/dL (0.0-1.0); Blood Urea Nitrogen 3 mg/dL (9-16); C Reactive Protein < 0.10 mg/dL (< or = 0.50); Calcium 9.4 mg/dL (8.4-10.2); Carbon Dioxide 26 mmol/L (22-29); Chloride 103 mmol/L (96-108); Estimated Glomerular Filt Rate > 60; Glucose Random 90 mg/dL (60-115); Potassium 4.2 mmol/L (3.3-5.1); Sodium 137 mmol/L (135-145); Total Protein 7.5 g/dL (6.5-8.0)
[2023-05-05 08:11] LABS: HBS Num1 2.07 mIU/mL (0-7.99); HBc Num1 0.07 S/CO (0.00-0.79); HBsAGNum1 0.32 S/CO (0.00-0.99); Hepatitis B Core Antibody Nonreactive (Nonreactive); Hepatitis B Surface Antigen Negative (Negative); ~Hepatitis B Surface Antibody NONREACTIVE (Nonreactive)
[2023-05-06 17:09] LABS: TS Negative Control Passed; TS Panel A 4; TS Panel B 2; TS Positive Control Passed; TSpotTB Negative (Negative)
== END 2023-05-04 10:32 | disposition home or self-care (01) ==
LOC: HO.LAB 10:31
PROVIDERS: Visit Provider Internal Medicine
DX: K51.011 Ulcerative (chronic) pancolitis with rectal bleeding (principal); K62.5 Hemorrhage of anus and rectum; R19.7 Diarrhea, unspecified
CPT/HCPCS: 36415; 80048; 80076; 85025; 85652; 86140; 86481; 86704; 86706; 87340

== ENCOUNTER 2023-05-07 15:11 | Outpatient (REF) | payer OTHER, SELFPAY ==
[2023-05-08 16:15] LABS: CDiff Gene PCR NEGATIVE (Negative)
[2023-05-09 11:09] LABS: Adenovirus F 40/41 Not Detected (Not Detect.); Astrovirus Not Detected (Not Detect.); Campylobacter Not Detected (Not Detect.); Cryptosporidium Not Detected (Not Detect.); Cyclospora cayetanensis Not Detected (Not Detect.); E. coli EAEC Not Detected (Not Detect.); E. coli EPEC Not Detected (Not Detect.); E. coli ETEC Not Detected (Not Detect.); E. coli STEC Not Detected (Not Detect.); Entamoeba histolytica Not Detected (Not Detect.); Giardia lamblia Not Detected (Not Detect.); Norovirus GI/GII Not Detected (Not Detect.); Plesiomonas shigelloides Not Detected (Not Detect.); Rotavirus A Not Detected (Not Detect.); Salmonella Not Detected (Not Detect.); Sapovirus Not Detected (Not Detect.); Shigella sp./EIEC Not Detected (Not Detect.); Vibrio Not Detected (Not Detect.); Vibrio Cholerae Not Detected (Not Detect.); Yersinia enterocolitica Not Detected (Not Detect.)
[2023-05-13 22:34] LABS: Calprotectin, Fecal 2350 mcg/g
== END 2023-05-07 15:12 | disposition home or self-care (01) ==
LOC: HO.LNP 15:11
PROVIDERS: Visit Provider Internal Medicine
DX: K51.011 Ulcerative (chronic) pancolitis with rectal bleeding (principal); K62.5 Hemorrhage of anus and rectum; R19.7 Diarrhea, unspecified
CPT/HCPCS: 83993; 87493; 87507

== ENCOUNTER 2024-05-28 15:06 | Outpatient (REF) | payer OTHER, SELFPAY ==
[2024-05-28 15:24] LABS: MANUAL DIFF FLAG NO
[2024-05-28 15:44] LABS: Basophils Absolute Auto 0.1 X10*3/uL (0.0-0.2); Basophils Percent Auto 0.7 % (0-2); Eosinophils Absolute Auto 0.7 X10*3/uL (0.0-0.4); Eosinophils Percent Auto 6.3 % (0-4); Hematocrit 41.1 % (42.0-52.0); Hemoglobin 13.1 g/dl (14.0-18.0); Imm Gran Abs Auto 0.02 X10*3/uL (0.00-0.03); Imm Gran Pct Auto 0.2 % (0.0-0.4); Lymphocytes Absolute Auto 2.4 X10*3/uL (1.2-4.9); Mean Corpuscular HGB Conc 31.9 g/dl (31.0-36.0); Mean Corpuscular Hemoglobin 25.2 pg (27.0-33.0); Mean Platelet Volume 10.3 fL (9.4-12.4); Monocytes Percent Auto 9.4 % (2-11); Neutrophils Absolute Auto 6.4 x10*3/uL (2.0-8.3); Neutrophils Percent Auto 60.4 % (45-73); Platelet Count 405 X10*3/uL (160-400); White Blood Count 10.6 X10*3/uL (4.8-10.8)
[2024-05-28 16:09] LABS: Alanine Aminotransferase 8 U/L (0-40); Albumin Level 4.3 g/dL (3.5-5.0); Alkaline Phosphatase 73 U/L (39-117); Anion Gap 14 (12-20); Aspartate Amino Transferase 19 U/L (5-37); Bilirubin Direct 0.2 mg/dL (0.0-0.5); Bilirubin Total 0.6 mg/dL (0.0-1.0); Blood Urea Nitrogen 3 mg/dL (9-16); C Reactive Protein < 0.10 mg/dL (< or = 0.50); Calcium 9.8 mg/dL (8.4-10.2); Carbon Dioxide 27 mmol/L (22-29); Chloride 104 mmol/L (96-108); Estimated Glomerular Filt Rate > 60; Glucose Random 94 mg/dL (60-115); Potassium 3.9 mmol/L (3.3-5.1); Sodium 141 mmol/L (135-145); Total Protein 8.1 g/dL (6.5-8.0)
[2024-05-28 16:22] LABS: Erythrocyte Sedimentation Rate 6 MM/HR (0-15)
== END 2024-05-28 15:07 | disposition home or self-care (01) ==
LOC: HO.LAB 15:06
PROVIDERS: Visit Provider Internal Medicine
DX: K51.90 Ulcerative colitis, unspecified, without complications (principal); K51.00 Ulcerative (chronic) pancolitis without complications; K62.5 Hemorrhage of anus and rectum; R19.7 Diarrhea, unspecified
CPT/HCPCS: 36415; 80048; 80076; 80145; 82542; 85025; 85652; 86140

== ENCOUNTER 2024-10-30 13:16 | Outpatient (REF) | payer BC, SELFPAY ==
[2024-10-30 14:29] LABS: MANUAL DIFF FLAG NO
[2024-10-30 14:54] LABS: Basophils Absolute Auto 0.1 X10*3/uL (0.0-0.2); Basophils Percent Auto 0.8 % (0-2); Eosinophils Absolute Auto 0.5 X10*3/uL (0.0-0.4); Eosinophils Percent Auto 4.6 % (0-4); Hematocrit 39.5 % (42.0-52.0); Hemoglobin 12.6 g/dl (14.0-18.0); Imm Gran Abs Auto 0.01 X10*3/uL (0.00-0.03); Imm Gran Pct Auto 0.1 % (0.0-0.4); Lymphocytes Absolute Auto 2.5 X10*3/uL (1.2-4.9); Lymphocytes Percent Auto 23.4 % (20-40); Mean Corpuscular HGB Conc 31.9 g/dl (31.0-36.0); Mean Corpuscular Hemoglobin 24.7 pg (27.0-33.0); Mean Corpuscular Volume 77.3 fL (80.0-98.0); Mean Platelet Volume 9.5 fL (9.4-12.4); Monocytes Absolute Auto 1.3 X10*3/uL (0.1-1.2); Monocytes Percent Auto 12.4 % (2-11); Neutrophils Absolute Auto 6.4 x10*3/uL (2.0-8.3); Neutrophils Percent Auto 58.7 % (45-73); Platelet Count 528 X10*3/uL (160-400); Red Blood Count 5.11 X10*6/uL (4.60-5.80); Red Cell Distribution Width 14.8 % (11.0-16.0); White Blood Count 10.8 X10*3/uL (4.8-10.8)
[2024-10-30 16:07] LABS: Folate 7.8 ng/mL (> or = 4.0); Vitamin B12 645 pg/mL (200-900)
[2024-10-30 16:38] LABS: Alanine Aminotransferase 9 U/L (0-40); Albumin Level 3.8 g/dL (3.5-5.0); Alkaline Phosphatase 72 U/L (39-117); Anion Gap 11 (12-20); Aspartate Amino Transferase 16 U/L (5-37); Bilirubin Total 0.5 mg/dL (0.0-1.0); Blood Urea Nitrogen 4 mg/dL (9-16); Carbon Dioxide 27 mmol/L (22-29); Chloride 105 mmol/L (96-108); Cholesterol 135 mg/dL (<200); Estimated Glomerular Filt Rate > 60; Glucose Random 89 mg/dL (60-115); HDL Cholesterol 43 mg/dL (>40); Iron 16 mcg/dL (45-160); LDL Cholesterol Calculated 80 mg/dL (<100); Percent Iron Saturation 4 % (15-50); Potassium 3.8 mmol/L (3.3-5.1); Sodium 139 mmol/L (135-145); Total Iron Binding Capacity 376 mcg/dL (228-428); Total Protein 7.3 g/dL (6.5-8.0); Triglycerides 64 mg/dL (<150); Unsaturated Iron Binding 360 ug/dL
--- OUTSIDE RECORDS SUMMARY | 2024-10-30 16:55 | XMS_ITS | Clinical Summary ---
Author Organization [facility] Address [address] [place] [address] Phone Care Team Providers Care Flanging Machine Operator Name Role Phone Milady Tilley MD Primary [...] age to complete this topic Care Teams Flanging Machine Operator Relationship Specialty Start Date End Date Milady Tilley MD PCP - General 02/24/17
--- OUTSIDE RECORDS SUMMARY | 2024-10-30 16:55 | XMS_ITS | Encounter Summary ---
Author Organization [facility] Address [address] [place] [address] Phone Care Team Providers Care Scientific Programmer Name Role Phone Milady Tilley MD Primary Care Provider Unava ilable Encounter Details Date Type Department Care Team (Late st Contact Info) Description 03/02/2017 Conversion Encounter [facility] - [address] [address] Social History Tobacco Use Types Packs/Day Years [...] on filedocumented in this encounter Care Teams Scientific Programmer Relationship Specialty Start Date End Date Milady Tilley MD PCP - General 02/24/17 documented as of this encounter
--- OUTSIDE RECORDS SUMMARY | 2024-10-30 16:55 | XMS_ITS | Encounter Summary ---
Author Organization [facility] Address [address] [place], [place] [phone] Phone Care Team Providers Care Fbi Field Agent Name Role Phone Milady Tilley MD Primary Care Provider Unava ilable Encounter Details Date Type Department Care Team (Late st Contact Info) Description 06/01/2012 Documentation EM Family Medicine [address] [place], [place] [id number] Family Medicine, Physician [address] [place] [address] Social History Tobacco Use Types Packs/Day Years [...] on filedocumented in this encounter Care Teams Fbi Field Agent Relationship Specialty Start Date End Date Milady Tilley MD PCP - General 02/24/17 documented as of this encounter
[2024-10-30 16:56] LABS: Free T4 (Free Thyroxine) 1.11 ng/dL (0.71-1.85); TSH reflex Free T4 0.97 uIU/mL (0.32-4.0); Vitamin D 25-OH Total 14.7 ng/mL (>30)
== END 2024-10-30 13:17 | disposition home or self-care (01) ==
LOC: HO.LAB 13:16
DX: D50.9 Iron deficiency anemia, unspecified (principal); K51.011 Ulcerative (chronic) pancolitis with rectal bleeding; F32.A Depression, unspecified; F41.9 Anxiety disorder, unspecified; R63.4 Abnormal weight loss; Z00.00 Encounter for general adult medical examination without abnormal findings; Z13.220 Encounter for screening for lipoid disorders; Z13.6 Encounter for screening for cardiovascular disorders
CPT/HCPCS: 36415; 80053; 80061; 82306; 82607; 82746; 83540; 84439; 84443; 85025; 96127

== ENCOUNTER 2024-10-30 13:16 | Outpatient (AMB) | payer BC, OTHER, SELFPAY ==
--- NOTE | 2024-10-30 13:27 | MHC.PC.OV ---
Vital Signs 10/30/24 13:29 Height 5 ft 9.69 in Weight 224 lb 4 oz BMI 32.5 BP 110/70 Blood Pressure Location Lt brachial Position Sitting Pulse 86 Pulse Source Pulse Oximeter Temp 97.1 F Temp Source Temporal Artery Scan Pulse Oximetry (%) 95 Oxygen Delivery Method Room Air Intake Visit Reasons: establish care Intake Note: Patient is a new patient here to establish care for Ulcer Colitis. Transferring care from Unknown. Medical records have not been requested and have not received. Bus System Operator Required: No Separating Machine Operator: Not Required per policy Accompanied by: Self / Same As Patient Allergies No Known Allergies Allergy (Verified 10/30/24 13:39) Medication List - Last Reconciled 10/30/24 by Chantel Sy PA-C adalimumab (Humira) 40 mg subcut QWEEK mesalamine (Delzicol) 1,200 mg (3 x 400 mg) PO TID prednisone 10 mg PO DIRECTED Tobacco use date assessed: 10/30/24 Dental Screening Dental Screen Date: 10/30/24 Did you have a dental visit in the last 12 months?: Yes Did you have a dental problem in the last 6 months where you did not have access to dental care?: No Was dental information given to patient?: Patient has dentist HPI establish care HPI Details 29-year-old male coming to the office for the 1st time. Patient has a history of ulcerative colitis and follows with GI with Dr. Grant. Presenting with multiple symptoms related to ulcerative colitis and management of chronic conditions. He was diagnosed with ulcerative colitis in late 2021, which became formally confirmed in early 2022. The condition initially presented with diffuse inflammation and bloody diarrhea. The patient reports daily bowel frequency has been averaging 12 times per day, predominantly in the mornings. He experiences associated symptoms such as cramping and an urgent need to defecate. Significant blood was passed during these flares, which led to consistent fatigue and low appetite over the past year. A weight loss from 260 to 220 lbs over the last several years has been noted, prompting concern. Follows up with a specialist (Dr. Grant) biannually for the ongoing management of his ulcerative colitis. He has a positive screening for both depression and anxiety, majorly deemed resultant from the burden of UC symptoms, alongside fatigue and appetite loss. vaccines: believes he is UTD. 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 1. Little interest or pleasure in doing things: nearly every day 2. Feeling down, depressed, or hopeless: several days 3. Trouble falling or staying asleep, or sleeping too much: not at all 4. Feeling tired or having little energy: nearly every day 5. Poor appetite or overeating: nearly every day 6. Feeling bad about yourself - or that you are a failure or have let yourself or your family down: not at all 7. Trouble concentrating on things, such as reading the newspaper or watching television: not at all 8. Moving or speaking so slowly that other people could have noticed. Or the opposite - being so fidgety or restless that you have been moving around a lot more than usual: not at all 9. Thoughts that you would be better off or of hurting yourself in some way: not at all Total score: 10 Depression Screening Interpretation: Positive Depression Screening Follow-up: Declines treatment Depression Screening Done: Yes 63784 - PHQ-9 Billing: Yes Source: Developed by Drs. Teja Escamilla, Adrienne Justice, Kg Anderson and colleagues, with an educational marycarmen from [employer]. Thrive Questionnaire Date Thrive assessed: 10/23/24 I am a: Patient What is your living situation today?: I have a steady place to live Within the past 12 months, did the food you bought not last and you didn't have the money to get more?: Sometimes True Within the past 12 months, did you worry whether your food would run out before you got money to buy more?: Sometimes True Do you have trouble paying for medicines?: No Do you have trouble getting transportation to medical appointments?: No Do you have trouble paying your heating and electricity bill?: No Do you have trouble taking care of your child, family member or friend?: No Do you have trouble with day-to-day activities such as bathing, preparing meals, shopping, managing finances, etc.?: Yes Are you currently unemployed and looking for a job?: No Are you interested in more education?: Yes Please select the resources that you would like help with: None Currently or been in a relationship where the following occur: No concerns reported THRIVE Score: 2 AUDIT C Alcohol Use Questionnaire (AUDIT-C) 1. How often do you have a drink containing alcohol?: Monthly or less 2. How many drinks containing alcohol do you have on a typical day when you are drinking?: 7 to 9 3. How often do you have six or more drinks on one occasion?: Less than monthly Total Score: 5 Score Reviewed/Action Taken: Yes HERBERT-7 AMB Questionnaire HERBERT-7 Date HERBERT - 7 assessed: 10/30/24 Feeling nervous, anxious, or on edge: 1 = Several days Not being able to stop or control worryin = Several days Worrying too much about different things: 1 = Several days Trouble relaxin = Several days Being so restless that it is hard to sit still: 0 = Not at all Becoming easily annoyed or irritable: 0 = Not at all Feeling afraid as if something awful might happen: 0 = Not at all Total HERBERT-7 score (0-4 normal; 5-9 mild; 10-14 moderate; 15-21 severe): 4 Source: Developed by Drs. Teja Escamilla, Adrienne Justice, Kg Anderson and colleagues, with an educational marycarmen from [employer]. HERBERT-7 Assessment Billing HERBERT-7 Assessment Tool: HERBERT-7 Assessment 32542 Review of Systems Const Denies body aches, Denies chills, Denies fever(s), Denies headache(s) and Denies poor appetite Eyes Reports no additional complaints ENT Denies dysphagia, Denies dizziness, Denies headache(s) and Denies odynophagia Card Denies chest pain, Denies syncope, Denies lightheadedness and Denies dyspnea Resp Denies cough and Denies dyspnea GI Details: blood in the stools w/ flares of UC Reports abdominal pain, Denies constipation, Denies dysphagia, Reports diarrhea, Denies nausea, Denies odynophagia and Denies vomiting Reports no additional complaints Musc Reports no additional complaints and Denies abnormal gait Skin/Breast Reports system reviewed and no additional complaints, except as documented Neuro Denies abnormal gait, Denies dizziness, Denies syncope and Denies headache(s) Psych Reports no additional complaints Physical exam (Primary Care) Vital Signs: Last Vital Signs Temp 97.1 F 10/30/24 13:29 Pulse 86 10/30/24 13:29 BP 110/70 10/30/24 13:29 Pulse Ox 95 10/30/24 13:29 Oxygen Delivery Method Room Air 10/30/24 13:29 BMI result Body Mass Index 32.5 Tobacco/Smoking Status: Tobacco use Status Tobacco use date assessed 10/30/24 10/30/24 13:38 Patient Tobacco Use Status Former Tobacco user 10/30/24 13:38 Tobacco use type Cigarette 10/30/24 13:38 e-Cigarette/Vaping Use Former Use 10/30/24 13:38 PHQ-9: PHQ-9 Score PHQ-9: Total score 10 10/30/24 13:38 Depression Screening Interpretation: Positive Depression Screening Follow-up: Declines treatment Thrive Assessment: Date of Thrive Assessment Date Thrive assessed 10/23/24 10/30/24 13:38 Currently or been in a relationship where the following occur: No concerns reported Const General: cooperative, healthy appearing, comfortable and no acute distress Orientation/consciousness: patient oriented x3 HENMT Head: Yes normocephalic Ears: hearing grossly normal bilaterally General nose exam: Normal external nose present Eyes General: appearance normal, both eyes and all related structures Conjunctivae: conjunctivae normal Neck Neck: Yes full ROM and Yes no lymphadenopathy Resp Effort & Inspection: normal respiratory effort Auscultation: clear to auscultation bilaterally, no crackles, no rales, no rhonchi and no wheezes Cardio Rate: regular rate Rhythm: regular rhythm Skin General skin exam: no rashes or lesions noted Neuro General: patient oriented x3 Gait exam (Neuro): Normal gait present Extrem General: Yes normal to inspection, Yes full ROM and No edema Psych Affect: normal affect Attitude: cooperative Insight: Good insight present (Psych) Judgement: Good judgement present (Psych) Coding Level of Care Code New Pt Level 4 (54491) Diagnoses Iron (Fe) deficiency anemia D50.9 Ulcerative colitis K51.011 Digestive disease complication type: with rectal bleeding Ulcerative colitis location: ulcerative pancolitis Depression F32.A Anxiety F41.9 Weight loss R63.4 Additional Codes HERBERT-7 Assessment Billing - HERBERT-7 Assessment Tool: HERBERT-7 Assessment 73100 ([id number]) PHQ-9 - 33361 - PHQ-9 Billing: Yes ([id number]) Assessment & Plan Assessment & Plan (1) Iron (Fe) deficiency anemia: Code(s): D50.9 - Iron deficiency anemia, unspecified Category: Medical Plan: Patient has previous history of iron-deficiency anemia he is not currently on supplementation. Ordered for blood work to evaluate for iron levels. He does have frequent rectal bleeding and relation to his ulcerative colitis (2) Ulcerative colitis: Code(s): K51.90 - Ulcerative colitis, unspecified, without complications Category: Medical Qualifiers: Digestive disease complication type: with rectal bleeding Ulcerative colitis location: ulcerative pancolitis Qualified Code(s): K51.011 - Ulcerative (chronic) pancolitis with rectal bleeding Plan: Patient is currently following with Dr. Grant for management of his UC. He has frequent bowel movements upwards of 12 times per day and has resultant had significant weight loss and decreased appetite. He uses boost protein drinks to maintain appropriate caloric intake and prescription was sent to pharmacy today. Also advised adding fiber supplemented diet to help bind the stools. Ordered for blood work to investigate vitamin electrolyte levels given frequent diarrhea. (3) Depression: Code(s): F32.A - Depression, unspecified Category: Medical Plan: Patient has a positive PHQ-9 and does endorse feelings regarding his diagnosis of ulcerative colitis. He declines any treatment or referral to a therapist at this time. (4) Anxiety: Code(s): F41.9 - Anxiety disorder, unspecified Category: Medical Plan: Positive herbert 7 declining treatment this time. (5) Weight loss: Code(s): R63.4 - Abnormal weight loss Category: Medical Plan: Patient endorsing weight loss over the last year and since his last recorded weight in 2022 patient has lost significant amount of weight. Recommended nutrition referral however patient declines today. Discussed the use of boost protein drinks for meal supplementation. Patient to follow up in 2 months for annual exam and weight check. Plan For ulcerative colitis, I will maintain the current regimen with Humira and mesalamine, ensuring adherence to manage flare-ups effectively. Given the weight loss and dietary challenges, blood work is warranted to check nutritional levels, including an iron profile. Nutritional augmentation through specialized drinks and potential meal planning via a supervisor dried yeast were discussed. I will reassess in two months for a physical exam and to review blood work outcomes. Psychological support for positive depression and anxiety screenings may be pursued, informed by symptomatology and patient preference. This note was constructed using voice recognition software. While every effort has been made to ensure accuracy and payment specialist, still areas may have been included sometimes these areas may affect the content or meeting of the given symptoms. Total time spent caring for the patient today was 30 minutes. This includes time spent before the visit reviewing the chart, time spent during the visit, and time spent after the visit and documentation. Patient was informed and verbally consented to the use of an ambient scribe for clinic note documentation during this visit. Orders: Orders Comprehensive Met. Panel Today D50.9 - Iron deficiency anemia, unspecified, Z00.00 - Encounter for general adult medical examination without abnormal findings Lipid Panel Today Z13.220 - Encounter for screening for lipoid disorders TSH reflex Free T4 Today Z00.00 - Encounter for general adult medical examination without abnormal findings Complete Blood Count Auto Diff Today D50.9 - Iron deficiency anemia, unspecified, Z00.00 - Encounter for general adult medical examination without abnormal findings IRON PROFILE Today D50.9 - Iron deficiency anemia, unspecified Free T4 (Free Thyroxine) Today Z00.00 - Encounter for general adult medical examination without abnormal findings Vitamin B12 and Folate Today Z00.00 - Encounter for general adult medical examination without abnormal findings Vitamin D 25-OH Total Today Z00.00 - Encounter for general adult medical examination without abnormal findings Medications: New psyllium husk (Metamucil) mix into at least 8 oz of water or juice before administering 1 tbsp PO DAILY 660 grams 0RF K51.011 - Ulcerative (chronic) pancolitis with rectal bleeding food supplemt, lactose-reduced (Boost High Protein) 1 ea PO QID 5,688 mL 2RF K51.011 - Ulcerative (chronic) pancolitis with rectal bleeding, R63.4 - Abnormal weight loss
[2024-10-30 13:29] VITALS: BP 110/70; PULSE 86; TEMP 36.2; O2SAT 95; BMI 32.5
--- OUTSIDE RECORDS SUMMARY | 2024-10-30 15:44 | XMS_ITS | Clinical Summary ---
Author Organization [facility] Address [address] [place] [phone] Phone Care Team Providers Care Digital Production Manager Name Role Phone Milady Tilley MD Primary Care Provider Unava ilable Immunizations Immunization Administration Dates Next Due DTP 02/12/1996,1994,1994 DTaP 5 03/05/1999,03/05/1998 Hep B, ped/adol 02/04/1996,1994,1994 Hib (PRP-T) 02/12/1996,1994,1994 IPV 03/05/1999, 8,02/12/1996, 995,1994 MMR 03/05/1999,03/26/1996 Meningococcal Conj (Menactra) MCV4P 12/27/2006 Tdap 12/27/2006 Varicella 02/10/2009,03/05/1999 Family History Relation Name Status Comments Brother Alive Brother: Migrai dennis, Healthy Father Alive Father: Diabete s mellitus Mother Alive Mother: Healthy Social History Tobacco Use Types Packs/Day Years Used Date Smoking Tobacco: Never Comments:Never smoker Sex and Gender Information Value Date Recorded Sex Assigned at Not on file Legal Sex Male 4:51 PM EDT Gender Identity Not on file Sexual Orientation Not on file Last Filed Vital Signs Vital Sign Reading Time Taken Comments Blood Pressure 120/78 03/19/2013 12:00 AM EDT Pulse - - Temperature 35.9 ??C (96.6 ??F) 03/19/2013 12:00 AM E DT Respiratory Rate - - Oxygen Saturation - - Inhaled Oxygen Concentration - - Weight 142 kg (314 lb) 03/19/2013 12:00 AM EDT Height 178.6 cm (5' 10.3 ) 03/19/2013 12:00 AM E DT Body Mass Index 44.67 03/19/2013 12:00 AM EDT Plan of Treatment Health Maintenance Due Date Last Done Comments DTaP,Tdap,and Td Vaccines (7 - Td or Tdap) 12/27/2016 12/27/2006, 03/05/1999, 03/05/1998, Additional history exists Influenza Vaccines (#1) 2024 COVID-19 Vaccine ( season) 2024 Hepatitis B Vaccines Completed 02/04/1996, 1994, 1994 HIB Vaccines Completed 02/12/1996, 09/14, 1994 IPV Vaccines Completed 03/05/1999, 02/15, 02/12/1996, Additional history exists MMR Vaccines Completed 03/05/1999, 03/26/1996 Meningococcal Vaccine Aged Out 12/27/2006 No maria del rosario freddy eligible based on patient's age to complete this topic Varicella Vaccines Completed 02/10/2009, 03/05/1999 HPV Vaccines Aged Out No longer eligi ble based on patient's age to complete this topic Hepatitis A Vaccines Aged Out No long er eligible based on patient's age to complete this topic Men B Vaccine Aged Out No longer elig ible based on patient's age to complete this topic Pneumococcal Vaccine Aged Out No long er eligible based on patient's age to complete this topic Care Teams Digital Production Manager Relationship Specialty Start Date End Date Milady Tilley MD PCP - General 02/24/17
--- OUTSIDE RECORDS SUMMARY | 2024-10-30 15:45 | XMS_ITS | Patient Health Record ---
Author Organization [facility] Address [address] [place] [address] Care Team Providers Care Project Management Intern Name Role Phone ANGELA SERENITY Primary Care Provider Teja Zhao [phone] Allergies No Known Allergies Results Component Value Reference Range Notes Promfernando VALLADARES ADA Reviewed date:07/31/2024 11:50:00 PM Interpretation: Performing Lab:[facility], [address] [place] [phone] Notes/Report: Prometheus ANSERIK ADA SEE NOTE SEE SCA NNED RESULTS IN EMR Complete Blood Count Auto Di ff Reviewed date:05/28/2024 05:26:57 PM Interpretation: Performing Lab:[facility], [address] [place] [phone] Notes/Report: White Blood Count 10.6 4.8-10.8 X10*3/uL Red Blood Count 5.20 4.60-5.80 X10*6/uL Hemoglobin 13.1 14.0-18.0 g/dl Hematocrit 41.1 42.0-52.0 % Mean Corpuscular Volume 79.0 80.0-98.0 fL Mean Corpuscular Hemoglobin 25.2 27.0-33.0 pg Mean Corpuscular HGB Conc 31.9 31.0-36.0 g/dl Red Cell Distribution Width 16.0 11.0-16.0 % Platelet Count 405 160-400 X10*3/uL Mean Platelet Volume 10.3 9.4-12.4 fL Neutrophils Percent Auto 60.4 45-73 % Imm Gran Pct Auto 0.2 0.0-0.4 % Lymphocytes Percent Auto 23.0 20-40 % Monocytes Percent Auto 9.4 2-11 % Eosinophils Percent Auto 6.3 0-4 % Basophils Percent Auto 0.7 0-2 % NRBC Pct Auto 0.0 0.0-0.2 /100WBC Neutrophils Absolute Auto 6.4 2.0-8.3 x10*3/u L Imm Gran Abs Auto 0.02 0.00-0.03 X10*3/uL Lymphocytes Absolute Auto 2.4 1.2-4.9 X10*3/u L Monocytes Absolute Auto 1.0 0.1-1.2 X10*3/uL Eosinophils Absolute Auto 0.7 0.0-0.4 X10*3/u L Basophils Absolute Auto 0.1 0.0-0.2 X10*3/uL NRBC Abs Auto 0.000 0.0-0.012 X10*3/uL Erythrocyte Sedimentation Ra te Reviewed date:05/28/2024 05:28:31 PM Interpretation: Performing Lab:[address] [phone] Notes/Report: Erythrocyte Sedimentation Rate 6 0-15 MM/HR Patients with polycythemia and many hemoglobin abnormalities may have depressed sed rates whereas patients with anemia may have elevated sed rates. Liver Panel Reviewed date:05/28/2024 05:27:10 PM Interpretation: Performing Lab:[facility], [address] [place] [phone] Notes/Report: Bilirubin Total 0.6 0.0-1.0 mg/dL Bilirubin Direct 0.2 0.0-0.5 mg/dL Aspartate Amino Transferase 19 5-37 U/L Alanine Aminotransferase 8 0-40 U/L Total Protein 8.1 6.5-8.0 g/dL Albumin Level 4.3 3.5-5.0 g/dL Alkaline Phosphatase 73 39-117 U/L Basic Metabolic Panel Reviewed date:05/28/2024 05:27:46 PM Interpretation: Performing Lab:[address] [phone] Notes/Report: Sodium 141 135-145 mmol/L Potassium 3.9 3.3-5.1 mmol/L Chloride 104 96-108 mmol/L Carbon Dioxide 27 22-29 mmol/L Anion Gap 14 12-20 Blood Urea Nitrogen 3 9-16 mg/dL Creatinine 0.75 0.5-1.4 mg/dL Estimated Glomerular Filt Rate > 60 Chronic Kidney Disease: Estimated GFR < 60 mL/min/1.73m2 Severe Kidney Disease: Estimated GFR < 15 mL/min/1.73m2 Glucose Random 94 60-115 mg/dL Calcium 9.8 8.4-10.2 mg/dL C Reactive Protein Reviewed date:05/28/2024 05:27:53 PM Interpretation: Performing Lab:[facility], [address] [place] [phone] Notes/Report: C Reactive Protein < 0.10 < or = 0.50 mg/dL Reason For Referral No Information Medications Medication SIG (Take, Route, Frequency, Duration) Notes Start Date End Date Status predniSONE 5 MG 8 pills(40mg) daily for 1 week, and then decrease by 1 pill(5mg) evry week Orally Once a day for 56 days Please tell patient that he needs to call my office and speak with Bessy to get started on his Humira injections NICOLETTE for his Ulcerative colitis. Thanks Active Humira (2 Pen) 40 MG/0.4ML 1 injection Subcutaneous Every 1 week for 28 days 11/24/2023 Active Iron (Ferrous Sulfate) Active Humira (2 Pen) 40 MG/0.4ML 40mg/0.4 mL every week Subcutaneous Every week for 28 days He needs 4 pens every month as he is now taking it weekly. Thanks 10/06/2024 Active Mesalamine ER 0.375 GM GALILEA HUANG WINSTONANABELL LIU for 30 Active Immunizations Vaccine Route Administration Date Status Comme nts Influenza Unknown 07/28/2022 Refused Social History Tobacco Use: Social History Observation Description Date Details (start date - stop date) Former Smoker NA - NA Tobacco Use/Smoking Question Answer Notes Patient is a former smoker How long has it been since you last smoked? 6-12 months Alcohol Screen Question Answer Notes Did you have a drink containing alcohol in the p ast year? No Points 0 Interpretation Negative Section Notes: Nonsmoker; no significant al cohol Nonsmoker; no significant al cohol Nonsmoker; no significant al cohol Problems Problem Type SNOMED Code ICD Code Onset Dates Problem Status W/U Status Risk Notes Problem 36919452 Rectal bleeding (K62.5) Active confirmed Problem 667999386 Ulcerative pancolitis without complication (K51.00) Active confirmed Problem 064950145 Ulcerative pancolitis with rectal bleeding (K51.011) Active confirmed Problem Ulcerative colitis (60451955) Ulcerative colitis (K51.90) Active confirmed Problem 32826620 Diarrhea, unspecified type (R19.7) Active confirmed Problem Ulcerative pancolitis (043017368) Ulcerative pancolitis (K51.00) Active confirmed Vital Signs Blood pressure diastolic 00 mm Hg 05/28/2024 Height 71 in 05/28/2024 Blood pressure systolic 00 mm Hg 05/28/2024 Weight 264 lbs 05/28/2024 BMI 36.82 kg/m2 05/28/2024 Encounters Encounter Location Date Provider Diagnosis [facility] [address] [place] [phone] 05/28/2024 Teja Grant Ulcerative colitis K51.90 ; Ulcerative pancolitis without complication K51.00 ; Rectal bleeding K62.5 ; Diarrhea, unspecified type R19.7 and Ulcerative pancolitis with rectal bleeding K51.011 [facility] [address] [place] [phone] 10/25/2024 Teja Grant [facility] [address] [place] [phone] 11/24/2023 Teja Grant [facility] [address] [place] [phone] 01/16/2024 Teja Grant [facility] [address] [place] [address] 07/14/2024 Teja Grant [facility] [address] [place] [address] 08/09/2024 Teja Grant [facility] [address] [place] [address] 09/30/2024 Teja Grant [facility] [address] [place] [address] 10/04/2024 Teja Grant [facility] [address] [place] [phone] Teja Grant Assessments Encounter Date Diagnosis (ICD Code) Assessment Notes Treatment Notes Treatment Clinical Notes Section Notes 05/28/2024 Ulcerative pancolitis without complication (ICD-10 - K51.00) Overall, Wallace appears well. It does appear that he is having some symptoms of a flare of colitis at this time despite the Humira and Apriso. I am going to give him another course of prednisone to try to come things down. However, I shall check laboratories including Humira levels and antibodies to see whether or not we can increase to a weekly injection or if he needs to change to a different biologic altogether. Of note, he does describe that his symptoms of the colitis will act up somewhat just before the next Humira dose is due and the injection itself seems to calm things down. If the Humira level is low and the antibodies are Negative we could then increase to a weekly injection to see if that gives him better long-term maintenance of the colitis. If the Humira level is low and the antibodies are positive we would then need to switch to a different biological together. In the meantime I have given him an appointment to see me in followup in 6 months but will be in touch with him as to whether or not we need to increase the Humira or change to a different different medication. I did advise him to contact me prior to that if he has any problems or questions I can be of assistance with. Wallace was comfortable with this plan. Thank you again for allowing me to participate in Wallace's care. I shall continue to keep you advised of his progress. 05/28/2024 Ulcerative colitis (ICD-10 - K51.90) Overall, Wallace appears well. It does appear that he is having some symptoms of a flare of colitis at this time despite the Humira and Apriso. I am going to give him another course of prednisone to try to come things down. However, I shall check laboratories including Humira levels and antibodies to see whether or not we can increase to a weekly injection or if he needs to change to a different biologic altogether. Of note, he does describe that his symptoms of the colitis will act up somewhat just before the next Humira dose is due and the injection itself seems to calm things down. If the Humira level is low and the antibodies are Negative we could then increase to a weekly injection to see if that gives him better long-term maintenance of the colitis. If the Humira level is low and the antibodies are positive we would then need to switch to a different biological together. In the meantime I have given him an appointment to see me in followup in 6 months but will be in touch with him as to whether or not we need to increase the Humira or change to a different different medication. I did advise him to contact me prior to that if he has any problems or questions I can be of assistance with. Wallace was comfortable with this plan. Thank you again for allowing me to participate in Wallace's care. I shall continue to keep you advised of his progress. 05/28/2024 Rectal bleeding (ICD-10 - K62.5) Overall, Wallace appears well. It does appear that he is having some symptoms of a flare of colitis at this time despite the Humira and Apriso. I am going to give him another course of prednisone to try to come things down. However, I shall check laboratories including Humira levels and antibodies to see whether or not we can increase to a weekly injection or if he needs to change to a different biologic altogether. Of note, he does describe that his symptoms of the colitis will act up somewhat just before the next Humira dose is due and the injection itself seems to calm things down. If the Humira level is low and the antibodies are Negative we could then increase to a weekly injection to see if that gives him better long-term maintenance of the colitis. If the Humira level is low and the antibodies are positive we would then need to switch to a different biological together. In the meantime I have given him an appointment to see me in followup in 6 months but will be in touch with him as to whether or not we need to increase the Humira or change to a different different medication. I did advise him to contact me prior to that if he has any problems or questions I can be of assistance with. Wallace was comfortable with this plan. Thank you again for allowing me to participate in Wallace's care. I shall continue to keep you advised of his progress. 05/28/2024 Diarrhea, unspecified type (ICD-10 - R19.7) Overall, Wallace appears well. It does appear that he is having some symptoms of a flare of colitis at this time despite the Humira and Apriso. I am going to give him another course of prednisone to try to come things down. However, I shall check laboratories including Humira levels and antibodies to see whether or not we can increase to a weekly injection or if he needs to change to a different biologic altogether. Of note, he does describe that his symptoms of the colitis will act up somewhat just before the next Humira dose is due and the injection itself seems to calm things down. If the Humira level is low and the antibodies are Negative we could then increase to a weekly injection to see if that gives him better long-term maintenance of the colitis. If the Humira level is low and the antibodies are positive we would then need to switch to a different biological together. In the meantime I have given him an appointment to see me in followup in 6 months but will be in touch with him as to whether or not we need to increase the Humira or change to a different different medication. I did advise him to contact me prior to that if he has any problems or questions I can be of assistance with. Wallace was comfortable with this plan. Thank you again for allowing me to participate in Wallace's care. I shall continue to keep you advised of his progress. 05/28/2024 Ulcerative pancolitis with rectal bleeding (ICD-10 - K51.011) Overall, Wallace appears well. It does appear that he is having some symptoms of a flare of colitis at this time despite the Humira and Apriso. I am going to give him another course of prednisone to try to come things down. However, I shall check laboratories including Humira levels and antibodies to see whether or not we can increase to a weekly injection or if he needs to change to a different biologic altogether. Of note, he does describe that his symptoms of the colitis will act up somewhat just before the next Humira dose is due and the injection itself seems to calm things down. If the Humira level is low and the antibodies are Negative we could then increase to a weekly injection to see if that gives him better long-term maintenance of the colitis. If the Humira level is low and the antibodies are positive we would then need to switch to a different biological together. In the meantime I have given him an appointment to see me in followup in 6 months but will be in touch with him as to whether or not we need to increase the Humira or change to a different different medication. I did advise him to contact me prior to that if he has any problems or questions I can be of assistance with. Wallace was comfortable with this plan. Thank you again for allowing me to participate in Wallace's care. I shall continue to keep you advised of his progress. Plan Of Treatment Pending Test Test Name Order Date CHEM 7 PROFILE 05/28/2024 CHEM 7 PROFILE 10/10/2022 CHEM 7 PROFILE 05/04/2023 BUN 10/02/2023 LIVER PROFILE 10/02/2023 LIVER PROFILE 05/28/2024 LIVER PROFILE 05/04/2023 IRON + IBC (FE) 10/02/2023 CRP 05/04/2023 CRP 10/10/2022 CRP 10/02/2023 CRP 05/28/2024 CBC w DIFF 10/02/2023 CBC w DIFF 05/28/2024 CBC w DIFF 05/04/2023 CBC w DIFF 10/10/2022 SED RATE (ESR) 10/10/2022 SED RATE (ESR) 10/02/2023 SED RATE (ESR) 05/28/2024 SED RATE (ESR) 05/04/2023 HEPATITIS B PROFILE 10/10/2022 HEPATITIS B PROFILE 05/04/2023 C DIFFICILE RFLX PCR 05/04/2023 C DIFFICILE RFLX PCR 10/10/2022 Liver Panel 10/10/2022 Electrolytes 10/02/2023 Creatinine 10/02/2023 Ferritin 10/02/2023 Amylase 10/10/2022 Lipase 10/10/2022 T Spot TB 05/04/2023 T Spot TB 10/10/2022 Calprotectin, Fecal 10/10/2022 T Spot TB 10/13/2022 GI PANEL 10/10/2022 Next Appt Details Provider Name:Teja Grant , 11/26/2024 01:20:00 PM, [address] [place] [address], [address], [place], [address], Insurance Providers Payer Name Payer Address Payer Phone Subscriber Number Group Number Insured Name Patient Relationship to Insured Coverage Start Date Coverage End Date [facility] [address] [place] [address] [id number] WALLACE PATEL Self - patient is the insured Medical (General) History Medical History History ICD Code Denies CO,DM,CVA,Lung disease,renal dise ase Ulcerative pancolitis diagno sed in early June of 2022 by colonoscopy. He had been in the hospital at that time due to diarrhea and hematochezia. He was treated with a course of prednisone and started on mesalamine. Anemia due to his ulcerative colitis Hospitalized in September due to a flare of his colitis requiring another course of steroids Flare of colitis in 03/2023 requiring pre dnisone to be started in 04/2023 Started on Humira in 06/2023 Surgical History Surgery Date(Month/Year)
--- OUTSIDE RECORDS SUMMARY | 2024-10-30 15:45 | XMS_ITS ---
Author Organization [facility] Address [address] [place] [address] Care Team Providers Care Window Framer Name Role Phone SERENITY MILLER Primary Care Provider Teja Zhao [phone] REASON FOR VISIT new insurance Encounters Encounter Location Date Provider Diagnosis [facility] [address] [place] [address] 10/24/2024 Teja Grant Plan Of Treatment Next Appt Details Provider Name:Teja Grant , 11/26/2024 01:20:00 PM, [address], [address], [place], [address], Progress Notes * WALLACE PATEL ADOB: [birth year] (29 yo M)Acc No.[id number]:10/24/2024 Patient:?WALLACE PATEL :1995???Age:29 Y???Sex:Male Address:[address] [place] [address], [address] * true * Date:? Generated for Printi sherwin/Jorgito/eTransmitting on:?10/30/2024 03:44 PM EDT
--- OUTSIDE RECORDS SUMMARY | 2024-10-30 15:45 | XMS_ITS ---
Author Organization [facility] Address [address] [place] [address] Care Team Providers Care Radiotelegrapher Name Role Phone KAMINISERENITY BOLIVAR Primary Care Provider Teja Zhao [phone] REASON FOR VISIT humira weekly script Medications Medication SIG (Take, Route, Frequency, Duration) Notes Start Date End Date Status Humira (2 Pen) 40 MG/0.4ML 40mg/0.4 mL every week Subcutaneous Every week for 28 days He needs 4 pens every month as he is now taking it weekly. Thanks 10/06/2024 Active Encounters Encounter Location Date Provider Diagnosis [facility] [address] [place] [address] 10/04/2024 Teja Grant Plan Of Treatment Medication Medication Name Sig Start Date Stop Date Notes Humira (2 Pen) 40 MG/0.4ML 40mg/0.4 mL e very week Subcutaneous Every week for 28 days 10/06/2024 Next Appt Details Provider Name:Teja Grant , 11/26/2024 01:20:00 PM, [address] [place] [address], [address], [place], [address], Progress Notes * WALLACE PATEL ADOB: [birth year] (29 yo M)Acc No.[id number]:10/04/2024 Patient:?WALLACE PATEL :1995???Age:29 Y???Sex:Male Address:[address] [place] [address], [place], [address] * Refills? Start Humira (2 Pen) Auto-injector Kit, 40 MG/0.4ML, Subcutaneous, 4, 40mg/0.4 mL every week, Every week, 28 days, Refills=11 * true * Date:? Generated for Trudy courtney/Jorgito/eTransmitting on:?10/30/2024 03:45 PM EDT
--- OUTSIDE RECORDS SUMMARY | 2024-10-30 15:45 | XMS_ITS ---
Author Organization [facility] Address [address] [place] [address] Care Team Providers Care Customer Support Professional Name Role Phone KAMINIKATT SERENITY Primary Care Provider Teja Zhao [phone] REASON FOR VISIT pa for humira/new ins Encounters Encounter Location Date Provider Diagnosis [facility] [address] [place] [address] 10/25/2024 Teja Grant Plan Of Treatment Next Appt Details Provider Name:Teja Grant , 11/26/2024 01:20:00 PM, [address] [facility], [address], [place], [address], Progress Notes * WALLACE PATEL ADOB: [birth year] (29 yo M)Acc No.[id number]:10/25/2024 Patient:?WALLACE PATEL :1995???Age:29 Y???Sex:Male Address:[address] [place] [address], [address] Subjective: * Chief Complaints: * ???Pa for humira/new ins * Medical History:? * Surgical History:? * Hospitalization/Major Diagno stic Procedure:? * Medications:? Objective: * Vitals:? * Physical Examination:? Assessment: Plan: * Treatment: * Procedure Codes:? * * Date:?
--- OUTSIDE RECORDS SUMMARY | 2024-10-30 15:45 | XMS_ITS | Encounter Summary ---
Author Organization [facility] Address [address] [place], [place] [address] Phone Care Team Providers Care Rotoformer Backtender Name Role Phone Milady Tilley MD Primary Care Provider Unava ilable Encounter Details Date Type Department Care Team (Late st Contact Info) Description 06/01/2012 Documentation EM Family Medicine [address] [place], [place] [id number] Family Medicine, Physician [address] [place] [address] Social History Tobacco Use Types Packs/Day Years Used Date Smoking Tobacco: Never Assessed Sex and Gender Information Value Date Recorded Sex Assigned at Not on file Legal Sex Male 4:51 PM EDT Gender Identity Not on file Sexual Orientation Not on file documented as of this encounter Plan of Treatment Not on file documented as of this encounter Visit Diagnoses Not on filedocumented in this encounter Care Teams Rotoformer Backtender Relationship Specialty Start Date End Date Milady Tilley MD PCP - General 02/24/17 documented as of this encounter
--- OUTSIDE RECORDS SUMMARY | 2024-10-30 15:45 | XMS_ITS | Encounter Summary ---
Author Organization [facility] Address [address] [place] [address] Phone Care Team Providers Care Cash Register Repairer Name Role Phone Milady Tilley MD Primary Care Provider Unava ilable Encounter Details Date Type Department Care Team (Late st Contact Info) Description 03/02/2017 Conversion Encounter [facility] - [address] [address] Social History Tobacco Use Types Packs/Day Years [...] on filedocumented in this encounter Care Teams Cash Register Repairer Relationship Specialty Start Date End Date Milady Tilley MD PCP - General 02/24/17 documented as of this encounter
== END 2024-10-30 14:05 | disposition home or self-care (01) ==
LOC: HO.HMCH 13:17
DX: D50.9 Iron deficiency anemia, unspecified (principal); K51.011 Ulcerative (chronic) pancolitis with rectal bleeding; F32.A Depression, unspecified; F41.9 Anxiety disorder, unspecified; R63.4 Abnormal weight loss